=== PATIENT | female | born 1985 | race Caucasian/White ===

== ENCOUNTER 2016-07-02 05:24 | Emergency (ER) | payer OTHER ==
[2016-07-02] MEDS ORDERED: IPRATROPIUM 0.5MG/ALBUTEROL 2.5MG INH SOL UD 3ML (DUONEB)(J7620) As Ordered ONE (05:56)
[2016-07-02] MEDS ORDERED: ALBUTEROL SULFATE 2.5 MG/0.5 ML INH NEB SOLN As Ordered ONE (06:51)
--- NOTE | 2016-07-02 07:49 | EDDOCDS ---
Nurse's Notes [facility] Name: Rosa Maria Vogel Age: 30 yrs Sex: Female : 1985 Arrival Date: 07/02/2016 Time: 05:24 Bed 7 Private MD: Diagnosis: Acute bronchitis;Pneumonia in diseases classified elsewhere Presentation: 07/02 05:35 Presenting complaint: Patient states: throat hurts, chest pains along with coughing, cjh started about two days ago. Aspirin was not taken prior to arrival. Adult Sepsis Screening: The patient does not have new or worsening altered mentation. Patient's respiratory rate is less than 22. Systolic blood pressure is greater than 100. Patient has a qSOFA score of 0- Negative Sepsis Screen. Suicide/Homicide risk assessment- the patient denies having any suicidal and/or homicidal ideations and does not present with any other emotional, behavioral or mental health complaints. Status: Patient is not a pharmaceutical service representative or dependent. Transition of care: patient was not received from another setting of care. 05:35 Acuity: DIMITRY Level 4 [facility] 05:35 Method Of Arrival: Walkin/Carried/Asstd [facility] Triage Assessment: 05:36 General: Appears in no apparent distress, comfortable, Behavior is cooperative. Pain: [facility] Location: head, neck and chest Pain currently is 7 out of 10 on a pain scale. HIV screening NA for this visit Offered previously. Respiratory: Reports cough that is productive. Derm: Skin is pink, warm & dry. 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 none - PMHx: none; - PSHx: tubal ; - Social history: Smoking status: Patient uses tobacco products, light tobacco smoker. No barriers to communication noted. - : The pt / caregiver states he / she is not on anticoagulants. Home medication list is obtained from the patient. - Exposure Risk Screening:: None identified. Screenin:45 Screening information is obtained from the patient. Fall risk: No risks identified. kas2 Assistance ADL's: requires no assistance with activities of daily living. Abuse/DV Screen: The patient / caregiver reports he/she is: not in a situation that causes fear, pain or injury. Nutritional screening: No deficits noted. Advance Directives: Currently, there is no health care proxy. There is no active DNR order. There is no living will. There is no Power of Bung Dropper. home support is adequate. Assessment: 05:43 General: Appears in no apparent distress, uncomfortable, well nourished, well groomed, kas2 Behavior is appropriate for age, cooperative. Pain: Location: chest and neck and head Pain currently is 9 out of 10 on a pain scale. Neurological: Level of Consciousness is awake, alert, Oriented to person, place, time. Cardiovascular: Capillary refill < 3 seconds Heart tones S1 S2 present Rhythm is sinus tachycardia No ectopy. Respiratory: Airway is patent Respiratory effort is even, unlabored, Respiratory pattern is regular, symmetrical, Breath sounds are clear bilaterally. Derm: Skin is intact, Skin is dry, Skin is pink, warm & dry. Skin temperature is warm. 06:50 General: Patient laying in bed waiting for respiratory treatment before discharge. No kas2 apparent distress noted. Call tian within reach.. Vital Signs: 05:32 BP 128 / 95; Pulse 111; Resp 18; Temp 98.1; Pulse Ox 98% ; Weight 86.18 kg; Height 5 [facility] ft. 4 in. (162.56 cm); Pain 7/10; 06:54 BP 132 / 90; Pulse 99; Resp 18; Temp 97.9(O); Pulse Ox 99% on R/A; Pain 5/10; kas2 07:46 BP 132 / 86; Pulse 100; Resp 18; Temp 97.8; Pulse Ox 95% on R/A; jmk 05:32 Body Mass Index 32.61 (86.18 kg, 162.56 cm) [facility] Vitals: 05:32 Log In Time: July 02, 2016 at 05:21. [facility] ED Course: 05:25 Patient visited by Erin Yo. gjb 05:25 Patient moved to Waiting gjb 05:36 Triage Initiated [facility] 05:37 Carissa Barillas RN is Primary Nurse. [facility] 05:37 Patient moved to 7 [facility] 05:40 Patient visited by Carissa Barillas RN. kas2 05:42 Yaa Gallardo MD is Attending Physician. fg 05:42 Patient visited by Yaa Gallardo MD. fg 05:46 Patient visited by aCrissa Barillas RN. kas2 05:53 Patient visited by Miranda, [place], DIRECTOR OF FOOD AND NUTRITION. ls3 05:53 EKG done. (by ED staff). Reviewed by Yaa Gallardo MD. ls3 05:54 Patient visited by Carissa Barillas RN. kas2 06:09 [facility] Payment Agreement was scanned into [employer] and attached to record. hs2 06:37 [facility] is Referral Physician. fg 06:51 Patient visited by Carissa Barillas RN. kas2 06:55 Patient visited by Carissa Barillas RN. kas2 07:19 Primary Nurse role handed off by Carissa Barillas RN mcp 07:46 The patient / caregiver is instructed regarding the plan of care and ED course. k 07:46 No IV's were initiated during this patient's visit. No procedures done that require k assistance. Administered Medications: 06:01 Drug: Albuterol-Ipratropium 3 ml [ipratropium-albuterol 0.5 mg-3 mg(2.5 mg base)/3 mL jh6 nebulization soln (3 mL)] Route: Inhalation; 06:54 Drug: Albuterol 2.5 mg [albuterol sulfate 2.5 mg/0.5 mL solution for nebulization (0.5 sd7 mL)] Route: Nebulizer; 06:58 Follow up: Response: Nebulizer completed sd7 RT: 06:01 Initial Med Neb Given as ordered Patient was instructed and evaluated on procedure jh6 Patient tolerated procedure well without adverse effect. Respiratory: Airway is patent Respiratory effort is even, unlabored, Respiratory pattern is regular symmetrical, Breath sounds are coarse in right upper lobe, left upper lobe, right middle lobe, left lower lobe and right lower lobe Breath sounds are diminished in right upper lobe, left upper lobe, right middle lobe, left lower lobe and right lower lobe. 06:08 Respiratory: Airway is patent Respiratory effort is even, unlabored, Respiratory jh6 pattern is regular symmetrical, Breath sounds with crackles in right upper lobe, left upper lobe, right middle lobe, left lower lobe and right lower lobe Breath sounds are diminished in right upper lobe, left upper lobe, right middle lobe, left lower lobe and right lower lobe Reports cough that is. 06:54 Subsequent Med Neb Given as ordered Patient was reinforced on procedure Patient sd7 tolerated procedure well without adverse effect. Respiratory: Breath sounds are coarse bilaterally. Breath sounds with wheezes bilaterally. at inspiration. Order Results: There are currently no results for this order. Outcome: 06:37 Discharge ordered by Provider. fg 07:46 Discharge Assessment: Patient awake, alert and oriented x 3. No cognitive and/or jmk functional deficits noted. Patient verbalized understanding of disposition instructions. patient administered narcotics - no. The following High Risk Discharge criteria are identified: None. Condition: good. Discharge instructions given to patient, Instructed on discharge instructions, follow up and referral plans. medication usage, Demonstrated understanding of instructions, medications, Pt was receptive of discharge instructions/ teaching. Prescriptions given X 3. No special radiology studies were completed. Property :Personal belongings accompany Pt. 07:48 Patient left the ED. [facility] Signatures: Junaid Ceron,RN RN Scarlet Carrillo RN RN Dung Palmer jh6 Marlen Brush,RN RN Deepali Beltran,RT RT sd7 Yaa Gallardo MD MD fg Schiff, Lauren, DIRECTOR OF FOOD AND NUTRITION DIRECTOR OF FOOD AND NUTRITION ls3 Erin Yo Hillary, Reg Reg hs2 Carissa Barillas,RN RN kas2 MTDD
--- NOTE | 2016-07-02 07:49 | EDDOCDS ---
Physician Documentation [facility] Name: Rosa Maria Vogel Age: 30 yrs Sex: Female : 1985 Arrival Date: 07/02/2016 Time: 05:24 Bed 7 Private MD: Disposition: 07/02/16 06:37 Discharged to Home/Self Care. Impression: Acute bronchitis, Pneumonia in diseases classified elsewhere. - Condition is Stable. - Discharge Instructions: Acute Bronchitis, Pneumonia, Adult, [id number]. - Prescriptions for Zithromax Z- Isaiah 250 mg Oral Tablet - take 1 tablet by ORAL route as directed for 5 days Day 1- take two tablets once. Day 2, 3, 4 , 5 take one tablet once daily.; 6 tablet. Prednisone 20 mg Oral Tablet - take 2 tablet by ORAL route once daily for 5 days; 10 tablet. benzonatate 200 mg Oral Capsule - take 1 capsule by ORAL route 2 times per day As needed; 15 capsule. - Medication Reconciliation, Local Pharmacy Hours form. - Follow up: [facility]; When: Call to arrange an appointment; Reason: Continuance of care. - Problem is new. - Symptoms have worsened. Historical: - Allergies: no known allergies; - Home Meds: 1. none - PMHx: none; - PSHx: tubal ; - Social history: Smoking status: Patient uses tobacco products, light tobacco smoker. No barriers to communication noted. - : The pt / caregiver states he / she is not on anticoagulants. Home medication list is obtained from the patient. - Exposure Risk Screening:: None identified. 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 4 in. (162.56 cm); Pain 7/10; 06:54 BP 132 / 90; Pulse 99; Resp 18; Temp 97.9(O); Pulse Ox 99% on R/A; Pain 5/10; kas2 07:46 BP 132 / 86; Pulse 100; Resp 18; Temp 97.8; Pulse Ox 95% on R/A; k 05:32 Body Mass Index 32.61 (86.18 kg, 162.56 cm) [facility] MDM: 05:42 ECG WITH READING ER PHYS+CARDIAG ordered. EDMS 05:48 Albuterol-Ipratropium 3 ml Inhalation once ordered. fg 05:48 Call Respiratory ordered. fg 05:48 Strep Screen, Nursing ordered. fg 05:49 Call Respiratory complete. kas2 05:50 Chest, 1 View Ordered. EDMS 06:09 Financial registration complete. hs2 06:09 [facility] Payment Agreement was scanned into [employer] and attached to record. hs2 06:36 Albuterol 2.5 mg Nebulizer once ordered. fg Administered Medications: 06:01 Drug: Albuterol-Ipratropium 3 ml [ipratropium-albuterol 0.5 mg-3 mg(2.5 mg base)/3 mL [facility] nebulization soln (3 mL)] Route: Inhalation; 06:54 Drug: Albuterol 2.5 mg [albuterol sulfate 2.5 mg/0.5 mL solution for nebulization (0.5 sd7 mL)] Route: Nebulizer; 06:58 Follow up: Response: Nebulizer completed sd7 Signatures: Dispatcher [employer] EDMS Junaid Ceron,RN RN Marlen Cooley,RN RN [facility] Yaa Gallardo MD MD Christina Dobbins, Reg Reg hs2 Carissa Barillas,RN RN sebas Dung Bedolla jh6 Deepali Isabel RT sd7 The chart was reviewed and I authenticate all verbal orders and agree with the evaluation and treatment provided.Attachments: 06:09 [facility] Payment Agreement hs2 MTDD
--- NOTE | 2016-07-02 08:24 | REP ---
Clinical: Chest pain . Comparison: None . Findings: The mediastinum and cardiac silhouette are stable and within normal limits for portable technique. The lung curtis are clear without acute consolidation, effusion, or pneumothorax. Skeletal structures are intact. Impression: Normal portable chest x-ray Signed by Costa Raman MD 07/02/2016 08:16 A
--- NOTE | 2016-07-02 18:05 | ECGEPIP ---
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
--- NOTE | 2016-07-04 08:49 | EDDOCDS ---
Physician Documentation [facility] Name: Rosa Maria Vogel Age: 30 yrs Sex: Female : 1985 Arrival Date: 07/02/2016 Time: 05:24 Bed 7 Private MD: Disposition: 07/02/16 06:37 Discharged to Home/Self Care. Impression: Acute bronchitis, Pneumonia in diseases classified elsewhere. - Condition is Stable. - Discharge Instructions: Acute Bronchitis, Pneumonia, Adult, [id number]. - Prescriptions for Zithromax Z- Isaiah 250 mg Oral Tablet - take 1 tablet by ORAL route as directed for 5 days Day 1- take two tablets once. Day 2, 3, 4 , 5 take one tablet once daily.; 6 tablet. Prednisone 20 mg Oral Tablet - take 2 tablet by ORAL route once daily for 5 days; 10 tablet. benzonatate 200 mg Oral Capsule - take 1 capsule by ORAL route 2 times per day As needed; 15 capsule. - Medication Reconciliation, Local Pharmacy Hours form. - Follow up: [facility]; When: Call to arrange an appointment; Reason: Continuance of care. - Problem is new. - Symptoms have worsened. Historical: - Allergies: no known allergies; - Home Meds: 1. none - PMHx: none; - PSHx: tubal ; - Social history: Smoking status: Patient uses tobacco products, light tobacco smoker. No barriers to communication noted. - : The pt / caregiver states he / she is not on anticoagulants. Home medication list is obtained from the patient. - Exposure Risk Screening:: None identified. 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 4 in. (162.56 cm); Pain 7/10; 06:54 BP 132 / 90; Pulse 99; Resp 18; Temp 97.9(O); Pulse Ox 99% on R/A; Pain 5/10; kas2 07:46 BP 132 / 86; Pulse 100; Resp 18; Temp 97.8; Pulse Ox 95% on R/A; k 05:32 Body Mass Index 32.61 (86.18 kg, 162.56 cm) [facility] MDM: 05:42 ECG WITH READING ER PHYS+CARDIAG ordered. EDMS 05:48 Albuterol-Ipratropium 3 ml Inhalation once ordered. fg 05:48 Call Respiratory ordered. fg 05:48 Strep Screen, Nursing ordered. fg 05:49 Call Respiratory complete. kas2 05:50 Chest, 1 View Ordered. EDMS 06:09 Financial registration complete. hs2 06:09 [facility] Payment Agreement was scanned into [employer] and attached to record. hs2 06:36 Albuterol 2.5 mg Nebulizer once ordered. fg 13:58 T-Sheet-- Draft Copy was scanned into [employer] and attached to record. gb 13:58 ECG/EKG was scanned into [employer] and attached to record. gb Administered Medications: 06:01 Drug: Albuterol-Ipratropium 3 ml [ipratropium-albuterol 0.5 mg-3 mg(2.5 mg base)/3 mL [facility] nebulization soln (3 mL)] Route: Inhalation; 06:54 Drug: Albuterol 2.5 mg [albuterol sulfate 2.5 mg/0.5 mL solution for nebulization (0.5 sd7 mL)] Route: Nebulizer; 06:58 Follow up: Response: Nebulizer completed sd7 Signatures: Dispatcher [employer] EDMS Junaid Ceron,RN RN Maricarmen Jacobsen, Reg Reg gb Marlen Brush,RN RN [facility] Yaa Gallardo MD MD Christina Dobbins, Reg Reg hs2 Carissa Barillas RN RN [facility] Dung eBdolla jh Deepali Isabel RT sd7 The chart was reviewed and I authenticate all verbal orders and agree with the evaluation and treatment provided.Attachments: 06:09 [facility] Payment Agreement hs2 13:58 T-Sheet-- Draft Copy gb 13:58 ECG/EKG gb Chart Complete MTDD
--- NOTE | 2016-07-04 08:49 | EDDOCDS ---
Physician Documentation Name: Rosa Maria Vogel Age: 30 yrs Sex: Female : 1985 Arrival Date: 07/02/2016 Time: 05:24 Bed 7 Private MD: Disposition: 07/02/16 06:37 Discharged to Home/Self Care. Impression: Acute bronchitis, Pneumonia in diseases classified elsewhere. - Condition is Stable. - Discharge Instructions: Acute Bronchitis, Pneumonia, Adult, [id number]. - Prescriptions for Zithromax Z- Isaiah 250 mg Oral Tablet - take 1 tablet by ORAL route as directed for 5 days Day 1- take two tablets once. Day 2, 3, 4 , 5 take one tablet once daily.; 6 tablet. Prednisone 20 mg Oral Tablet - take 2 tablet by ORAL route once daily for 5 days; 10 tablet. benzonatate 200 mg Oral Capsule - take 1 capsule by ORAL route 2 times per day As needed; 15 capsule. - Medication Reconciliation, Local Pharmacy Hours form. - Follow up: [facility]; When: Call to arrange an appointment; Reason: Continuance of care. - Problem is new. - Symptoms have worsened. Historical: - Allergies: no known allergies; - Home Meds: 1. none - PMHx: none; - PSHx: tubal ; - Social history: Smoking status: Patient uses tobacco products, light tobacco smoker. No barriers to communication noted. - : The pt / caregiver states he / she is not on anticoagulants. Home medication list is obtained from the patient. - Exposure Risk Screening:: None identified. 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 4 in. (162.56 cm); Pain 7/10; 06:54 BP 132 / 90; Pulse 99; Resp 18; Temp 97.9(O); Pulse Ox 99% on R/A; Pain 5/10; kas2 07:46 BP 132 / 86; Pulse 100; Resp 18; Temp 97.8; Pulse Ox 95% on R/A; k 05:32 Body Mass Index 32.61 (86.18 kg, 162.56 cm) [facility] MDM: 05:42 ECG WITH READING ER PHYS+CARDIAG ordered. EDMS 05:48 Albuterol-Ipratropium 3 ml Inhalation once ordered. fg 05:48 Call Respiratory ordered. fg 05:48 Strep Screen, Nursing ordered. fg 05:49 Call Respiratory complete. kas2 05:50 Chest, 1 View Ordered. EDMS 06:09 Financial registration complete. hs2 06:09 [facility] Payment Agreement was scanned into [employer] and attached to record. hs2 06:36 Albuterol 2.5 mg Nebulizer once ordered. fg 13:58 T-Sheet-- Draft Copy was scanned into [employer] and attached to record. gb 13:58 ECG/EKG was scanned into [employer] and attached to record. gb Administered Medications: 06:01 Drug: Albuterol-Ipratropium 3 ml [ipratropium-albuterol 0.5 mg-3 mg(2.5 mg base)/3 mL [facility] nebulization soln (3 mL)] Route: Inhalation; 06:54 Drug: Albuterol 2.5 mg [albuterol sulfate 2.5 mg/0.5 mL solution for nebulization (0.5 sd7 mL)] Route: Nebulizer; 06:58 Follow up: Response: Nebulizer completed sd7 Signatures: Dispatcher [employer] EDMS Junaid Ceron,RN RN Maricarmen Jacobsen, Reg Reg gb Marlen Brush,RN RN [facility] Yaa Gallardo MD MD Christina Dobbins, Reg Reg hs2 Carissa Barillas RN RN [facility] Dung Bedolla jh Deepali Isabel RT sd7 The chart was reviewed and I authenticate all verbal orders and agree with the evaluation and treatment provided.Attachments: 06:09 [facility] Payment Agreement hs2 13:58 T-Sheet-- Draft Copy gb 13:58 ECG/EKG gb Chart Complete MTDD
--- NOTE | 2016-07-04 08:49 | EDDOCDS ---
Nurse's Notes [facility] Name: Rosa Maria Vogel Age: 30 yrs Sex: Female : 1985 Arrival Date: 07/02/2016 Time: 05:24 Bed 7 Private MD: Diagnosis: Acute bronchitis;Pneumonia in diseases classified elsewhere Presentation: 07/02 05:35 Presenting complaint: Patient states: throat hurts, chest pains along with coughing, cjh started about two days ago. Aspirin was not taken prior to arrival. Adult Sepsis Screening: The patient does not have new or worsening altered mentation. Patient's respiratory rate is less than 22. Systolic blood pressure is greater than 100. Patient has a qSOFA score of 0- Negative Sepsis Screen. Suicide/Homicide risk assessment- the patient denies having any suicidal and/or homicidal ideations and does not present with any other emotional, behavioral or mental health complaints. Status: Patient is not a reactor service operator or dependent. Transition of care: patient was not received from another setting of care. 05:35 Acuity: DIMITRY Level 4 [facility] 05:35 Method Of Arrival: Walkin/Carried/Asstd [facility] Triage Assessment: 05:36 General: Appears in no apparent distress, comfortable, Behavior is cooperative. Pain: [facility] Location: head, neck and chest Pain currently is 7 out of 10 on a pain scale. HIV screening NA for this visit Offered previously. Respiratory: Reports cough that is productive. Derm: Skin is pink, warm & dry. 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 none - PMHx: none; - PSHx: tubal ; - Social history: Smoking status: Patient uses tobacco products, light tobacco smoker. No barriers to communication noted. - : The pt / caregiver states he / she is not on anticoagulants. Home medication list is obtained from the patient. - Exposure Risk Screening:: None identified. Screenin:45 Screening information is obtained from the patient. Fall risk: No risks identified. kas2 Assistance ADL's: requires no assistance with activities of daily living. Abuse/DV Screen: The patient / caregiver reports he/she is: not in a situation that causes fear, pain or injury. Nutritional screening: No deficits noted. Advance Directives: Currently, there is no health care proxy. There is no active DNR order. There is no living will. There is no Power of Vp Corporate Development. home support is adequate. Assessment: 05:43 General: Appears in no apparent distress, uncomfortable, well nourished, well groomed, kas2 Behavior is appropriate for age, cooperative. Pain: Location: chest and neck and head Pain currently is 9 out of 10 on a pain scale. Neurological: Level of Consciousness is awake, alert, Oriented to person, place, time. Cardiovascular: Capillary refill < 3 seconds Heart tones S1 S2 present Rhythm is sinus tachycardia No ectopy. Respiratory: Airway is patent Respiratory effort is even, unlabored, Respiratory pattern is regular, symmetrical, Breath sounds are clear bilaterally. Derm: Skin is intact, Skin is dry, Skin is pink, warm & dry. Skin temperature is warm. 06:50 General: Patient laying in bed waiting for respiratory treatment before discharge. No kas2 apparent distress noted. Call tian within reach.. Vital Signs: 05:32 BP 128 / 95; Pulse 111; Resp 18; Temp 98.1; Pulse Ox 98% ; Weight 86.18 kg; Height 5 [facility] ft. 4 in. (162.56 cm); Pain 7/10; 06:54 BP 132 / 90; Pulse 99; Resp 18; Temp 97.9(O); Pulse Ox 99% on R/A; Pain 5/10; kas2 07:46 BP 132 / 86; Pulse 100; Resp 18; Temp 97.8; Pulse Ox 95% on R/A; jmk 05:32 Body Mass Index 32.61 (86.18 kg, 162.56 cm) [facility] Vitals: 05:32 Log In Time: July 02, 2016 at 05:21. [facility] ED Course: 05:25 Patient visited by Erin Yo. gjb 05:25 Patient moved to Waiting gjb 05:36 Triage Initiated [facility] 05:37 Carissa Barillas RN is Primary Nurse. [facility] 05:37 Patient moved to 7 [facility] 05:40 Patient visited by Carissa Barillas RN. kas2 05:42 Yaa Gallardo MD is Attending Physician. fg 05:42 Patient visited by Yaa Gallardo MD. fg 05:46 Patient visited by Carissa Barillas RN. kas2 05:53 Patient visited by Miranda, [place], RIVERBOAT MASTER. ls3 05:53 EKG done. (by ED staff). Reviewed by Yaa Gallardo MD. ls3 05:54 Patient visited by Carissa Barillas RN. kas2 06:09 [facility] Payment Agreement was scanned into [employer] and attached to record. hs2 06:37 [facility] is Referral Physician. fg 06:51 Patient visited by Carissa Barillas RN. kas2 06:55 Patient visited by Carissa Barillas RN. kas2 07:19 Primary Nurse role handed off by Carissa Barillas RN mcp 07:46 The patient / caregiver is instructed regarding the plan of care and ED course. jmk 07:46 No IV's were initiated during this patient's visit. No procedures done that require k assistance. 08:50 Chest, 1 View Returned. EDMS 13:58 T-Sheet-- Draft Copy was scanned into [employer] and attached to record. gb 13:58 ECG/EKG was scanned into [employer] and attached to record. gb 18:09 EKG-ADULT Returned. EDMS Administered Medications: 06:01 Drug: Albuterol-Ipratropium 3 ml [ipratropium-albuterol 0.5 mg-3 mg(2.5 mg base)/3 mL jh6 nebulization soln (3 mL)] Route: Inhalation; 06:54 Drug: Albuterol 2.5 mg [albuterol sulfate 2.5 mg/0.5 mL solution for nebulization (0.5 sd7 mL)] Route: Nebulizer; 06:58 Follow up: Response: Nebulizer completed sd7 RT: 06:01 Initial Med Neb Given as ordered Patient was instructed and evaluated on procedure jh6 Patient tolerated procedure well without adverse effect. Respiratory: Airway is patent Respiratory effort is even, unlabored, Respiratory pattern is regular symmetrical, Breath sounds are coarse in right upper lobe, left upper lobe, right middle lobe, left lower lobe and right lower lobe Breath sounds are diminished in right upper lobe, left upper lobe, right middle lobe, left lower lobe and right lower lobe. 06:08 Respiratory: Airway is patent Respiratory effort is even, unlabored, Respiratory jh6 pattern is regular symmetrical, Breath sounds with crackles in right upper lobe, left upper lobe, right middle lobe, left lower lobe and right lower lobe Breath sounds are diminished in right upper lobe, left upper lobe, right middle lobe, left lower lobe and right lower lobe Reports cough that is. 06:54 Subsequent Med Neb Given as ordered Patient was reinforced on procedure Patient sd7 tolerated procedure well without adverse effect. Respiratory: Breath sounds are coarse bilaterally. Breath sounds with wheezes bilaterally. at inspiration. 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:; : 1985 Requested By: YAA Nieves; Order Number: [id number] Reading MD: Veronika Scott; Measurements; Intervals [place]; Rate: 102 P: 27; MD: 114 QRS: 54; QRSD: 76 T: 16; QT: 313; QTc: 409; Interpretive Statements; SINUS TACHYCARDIA WITH SHORT MD INTERVAL; ABNORMAL RHYTHM ECG; NO PRIOR FOR COMPARISON; Electronically Signed On 07-02-2016 18:05:26 EST by Veronika Scott; Radiology Order: Chest, 1 View Test: Chest, 1 View REASON FOR EXAMINATION: Chest Pain; Clinical: Chest pain .; ; Comparison: None .; ; Findings:; The mediastinum and cardiac silhouette are stable and within normal limits for; portable technique. The lung curtis are clear without acute consolidation,; effusion, or pneumothorax. Skeletal structures are intact.; ; Impression:; Normal portable chest x-ray; ; ; Signed by; Costa Raman MD 07/02/2016 08:16 A; Outcome: 06:37 Discharge ordered by Provider. fg 07:46 Discharge Assessment: Patient awake, alert and oriented x 3. No cognitive and/or jmk functional deficits noted. Patient verbalized understanding of disposition instructions. patient administered narcotics - no. The following High Risk Discharge criteria are identified: None. Condition: good. Discharge instructions given to patient, Instructed on discharge instructions, follow up and referral plans. medication usage, Demonstrated understanding of instructions, medications, Pt was receptive of discharge instructions/ teaching. Prescriptions given X 3. No special radiology studies were completed. Property :Personal belongings accompany Pt. 07:48 Patient left the ED. k Signatures: Dispatcher [employer] EDMS Junaid Ceron,RN RN christina Tobin, Scarlet, RN RN [facility] Maricarmen Esposito, Reg Reg gb Dung Bedolla jh6 Marlen Brush,RN RN [facility] Chalo,Deepali,RT RT sd7 Yaa Gallardo MD MD fg Schiff, Lauren, RIVERBOAT MASTER RIVERBOAT MASTER ls3 Erin Yo gjb Christina Dobbins, Reg Reg hs2 Carissa Barillas,RN RN kas2 Chart Complete MTDD
== END 2016-07-02 07:48 | disposition home or self-care (01) ==
LOC: M ED 05:24
DX: R07.9 Chest pain, unspecified (principal); R05 Cough; R20.9 Unspecified disturbances of skin sensation; J18.9 Pneumonia, unspecified organism; Z72.0 Tobacco use

== ENCOUNTER 2016-10-26 16:13 | Emergency (ER) | payer OTHER ==
[~2016-10-26] VITALS: Ht 162.6 cm; Wt 88.9 kg
[2016-10-26] MEDS ORDERED: ONDANSETRON 4 MG ORAL DISINTEGRATING TAB (S0181) PO ONE (17:00)
[2016-10-26] MEDS ORDERED: ZOFR4TAB3 PO (17:28)
[2016-10-26 18:03] VITALS: BP 116/74
== END 2016-10-26 18:08 | disposition home or self-care (01) ==
LOC: M ED 17:01
DX: R11.2 Nausea with vomiting, unspecified (principal)

== ENCOUNTER 2016-11-23 17:41 | Emergency (ER) | payer OTHER ==
[~2016-11-23] VITALS: Ht 162.6 cm; Wt 99.8 kg
[~2016-11-23 17:41] MED LIST: ZOFR4TAB3 PO
[2016-11-23] MEDS ORDERED: NYSTATIN 100,000 UNITS/GM TOPICAL PWD 15 GM TOP ONE (19:30)
[2016-11-23] MEDS ORDERED: ONDANSETRON 4 MG ORAL DISINTEGRATING TAB (S0181) PO ONE (19:30)
[2016-11-23] MEDS ORDERED: MORPHINE 10 MG/ML 1ML VIAL IM ONE (19:30)
[2016-11-23 19:49] LABS: BASO % 0.4 % (0.0-1.0); EOS # 0.4 K/mm3 (0.0-0.50); LARGE UNSTAINED CELL # 0.1 K/mm3 (0.0-0.4); LARGE UNSTAINED CELL % 1.2 % (0.0-4.0); LYMPH # 2.4 K/mm3 (1.5-6.5); MEAN CORPUSCULAR HEMOGLOBIN 28.3 pg (27.0-33.0); MEAN CORPUSCULAR HGB CONC 33.1 g/dl (32.0-36.5); MEAN CORPUSCULAR VOLUME 85.3 fl (80.0-96.0); MONO # 0.3 K/mm3 (0.0-0.8); NEUTROPHILS # 7.2 K/mm3 (1.8-7.7); NEUTROPHILS % 69.4 % (36.0-66.0); PLATELET COUNT, AUTOMATED 254 k/mm3 (150-450); RED CELL DISTRIBUTION WIDTH 14.1 % (11.5-14.5); WHITE BLOOD COUNT 10.4 K/mm3 (4.0-10.0)
[2016-11-23 20:13] LABS: ANION GAP 4 MEQ/L (8-16); BLOOD UREA NITROGEN 9 MG/DL (7-18); CARBON DIOXIDE LEVEL 27 MEQ/L (21-32); CHLORIDE LEVEL 109 MEQ/L (98-107); GLOMERULAR FILTRATION RATE > 60.0 (>60); GLUCOSE, FASTING 85 MG/DL (70-105); SODIUM LEVEL 140 MEQ/L (136-145)
[2016-11-23 20:22] VITALS: BP 122/58
--- NOTE | 2016-11-23 20:50 | REPUSA ---
Clinical history: Breast redness, swelling. Findings: Real-time ultrasound imaging of the right breast was performed.. There is an open draining wound at the two to three o'clock position of the right breast. Adjacent to the site, posterior to t he nipple, is a complex fluid collection measuring 2.3 x 1.7 x 1.4 cm. Diffuse edema is noted. No oth er gross abnormalities. Impression: Complex Fluid collection in the upper inner right breast, consistent with an abscess. BIRAD 2: benign findings.
[2016-11-23] MEDS ORDERED: CLEO300C2 PO (21:13)
[2016-11-23] MEDS ORDERED: PERC5TAB6 PO (21:13)
[2016-11-23] MEDS ORDERED: PERCOCET 5MG/325MG TAB PO ONE (21:15)
[2016-11-23] MEDS ORDERED: CLINDAMYCIN 150 MG CAP PO ONE (21:15)
== END 2016-11-23 21:32 | disposition home or self-care (01) ==
LOC: M ED 18:29
DX: N61.1 Abscess of the breast and nipple (principal); B37.2 Candidiasis of skin and nail

== ENCOUNTER 2017-01-31 20:18 | Emergency (ER) | payer OTHER ==
[~2017-01-31] VITALS: Ht 162.6 cm; Wt 96.0 kg
[~2017-01-31 20:18] MED LIST changes: +CLEO300C2 PO; +PERC5TAB12 PO
[2017-01-31] MEDS ORDERED: ZOLO50TA PO (20:32)
[2017-01-31] MEDS ORDERED: ONDANSETRON 4MG/2ML VIAL (J2405) IV ONE (21:00)
[2017-01-31] MEDS ORDERED: MORPHINE 4 MG/ML 1ML SYRINGE IV ONE (21:00)
[2017-01-31 21:13] LABS: CONTROL LINE UCG INT CTR LINE PRESENT
[2017-01-31 21:50] LABS: BASO # 0.1 K/mm3 (0.0-0.2); BASO % 0.8 % (0.0-1.0); EOS # 0.4 K/mm3 (0.0-0.50); EOS % 3.8 % (0.0-3.0); LARGE UNSTAINED CELL # 0.2 K/mm3 (0.0-0.4); LARGE UNSTAINED CELL % 1.5 % (0.0-4.0); LYMPH # 2.5 K/mm3 (1.5-6.5); MEAN CORPUSCULAR HEMOGLOBIN 28.9 pg (27.0-33.0); MEAN CORPUSCULAR HGB CONC 34.1 g/dl (32.0-36.5); MEAN CORPUSCULAR VOLUME 84.8 fl (80.0-96.0); MONO # 0.4 K/mm3 (0.0-0.8); MONO % 3.6 % (0.0-5.0); NEUTROPHILS # 8.2 K/mm3 (1.8-7.7); NEUTROPHILS % 69.4 % (36.0-66.0); PLATELET COUNT, AUTOMATED 293 k/mm3 (150-450); RED CELL DISTRIBUTION WIDTH 12.8 % (11.5-14.5); WHITE BLOOD COUNT 11.9 K/mm3 (4.0-10.0)
[2017-01-31 22:17] LABS: BLOOD UREA NITROGEN 7 MG/DL (7-18); GLUCOSE, FASTING 114 MG/DL (70-105)
[2017-01-31 22:18] LABS: ALBUMIN 3.3 GM/DL (3.2-5.2); ALBUMIN/GLOBULIN RATIO 0.87 (1.00-1.93); ALKALINE PHOSPHATASE 90 U/L (45-117); ALT/SGPT 17 U/L (12-78); ANION GAP 9 MEQ/L (8-16); AST/SGOT 13 U/L (15-37); BILIRUBIN,DIRECT < 0.1 MG/DL (0.0-0.2); BILIRUBIN,TOTAL 0.1 MG/DL (0.2-1.0); CALCIUM LEVEL 8.7 MG/DL (8.5-10.1); CARBON DIOXIDE LEVEL 24 MEQ/L (21-32); CHLORIDE LEVEL 108 MEQ/L (98-107); CONTROL LINE HCG INT CTR LINE PRESENT; CREATININE FOR GFR 0.62 MG/DL (0.55-1.02); GLOMERULAR FILTRATION RATE > 60.0 (>60); POTASSIUM SERUM 3.9 MEQ/L (3.5-5.1); SODIUM LEVEL 141 MEQ/L (136-145); TOTAL PROTEIN 7.1 GM/DL (6.4-8.2)
[2017-01-31] MEDS ORDERED: ISOVUE-370 76% 100ML VIAL (Q9967) As Ordered ONE (22:21)
[2017-01-31] MEDS ORDERED: MORPHINE 2 MG/ML 1ML SYRINGE IV ONE (23:15)
--- NOTE | 2017-01-31 23:20 | REPUSA ---
CLINICAL HISTORY: Right lower quadrant pain. TECHNIQUE: CT abdomen and pelvis following administration of IV contrast. Total DLP 981.9 mGy*cm. COMPARISON: No pertinent prior studies are available at this time. CT ABDOMEN WITH CONTRAST: Lung bases: No lung base infiltrate or effusion. 4 mm bilateral lower lobe nodules likely due to atel ectasis. Liver: No intrahepatic ductal dilation. Gallbladder: Contracted. Pancreas: No pancreatic duct dilation. Bowel loops: Nondistended. Spleen: Normal size. Adrenals: Normal size. Kidneys: No hydronephrosis. Aorta: Normal caliber. Peritoneum: No free air. CT PELVIS WITH CONTRAST: Colon: Nondistended. Bladder: Normally distended. Pelvic organs: Unremarkable. Peritoneum: No fluid. Skeleton: No acute findings. IMPRESSION: No acute abdominal findings.
[2017-01-31 23:54] VITALS: BP 122/68
--- NOTE | 2017-02-01 07:31 | ECGEPIP ---
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
== END 2017-02-01 00:04 | disposition home or self-care (01) ==
LOC: M ED 20:18
DX: R10.9 Unspecified abdominal pain (principal); Z72.0 Tobacco use
CPT/HCPCS: 36415; 74177; 80048; 80076; 81001; 83690; 84703; 85025; 87210; 87491; 87591; 93000; 96374; 96375; 96376; 99284; J2405; Q9967

== ENCOUNTER 2017-03-10 21:22 | Emergency (ER) | payer OTHER ==
[~2017-03-10] VITALS: Ht 134.6 cm; Wt 95.5 kg
[~2017-03-10 21:22] MED LIST changes: +ZOLO50TA PO
[2017-03-10] MEDS ORDERED: KETOROLAC 60 MG/2 ML VIAL (J1885) IM ONE (23:00)
[2017-03-10] MEDS ORDERED: NS 1,000 ML IV ONE (23:00)
[2017-03-10] MEDS ORDERED: KETOROLAC 30 MG/ML VIAL (J1885) IV ONE (23:00)
[2017-03-10 23:23] LABS: BASO % 0.3 % (0.0-1.0); EOS # 0.2 K/mm3 (0.0-0.50); EOS % 2.6 % (0.0-3.0); LARGE UNSTAINED CELL # 0.2 K/mm3 (0.0-0.4); LARGE UNSTAINED CELL % 1.6 % (0.0-4.0); LYMPH # 2.2 K/mm3 (1.5-6.5); LYMPH % 24.6 % (24.0-44.0); MEAN CORPUSCULAR HEMOGLOBIN 29.2 pg (27.0-33.0); MEAN CORPUSCULAR HGB CONC 34.2 g/dl (32.0-36.5); MEAN CORPUSCULAR VOLUME 85.3 fl (80.0-96.0); MONO # 0.3 K/mm3 (0.0-0.8); MONO % 3.5 % (0.0-5.0); NEUTROPHILS % 67.4 % (36.0-66.0); PLATELET COUNT, AUTOMATED 294 k/mm3 (150-450); RED CELL DISTRIBUTION WIDTH 13.3 % (11.5-14.5)
[2017-03-10 23:25] LABS: ANION GAP 8 MEQ/L (8-16); BLOOD UREA NITROGEN 13 MG/DL (7-18); CALCIUM LEVEL 8.6 MG/DL (8.5-10.1); CARBON DIOXIDE LEVEL 24 MEQ/L (21-32); CHLORIDE LEVEL 108 MEQ/L (98-107); CREATININE FOR GFR 0.66 MG/DL (0.55-1.02); GLOMERULAR FILTRATION RATE > 60.0 (>60); GLUCOSE, FASTING 122 MG/DL (70-105); POTASSIUM SERUM 3.7 MEQ/L (3.5-5.1); SODIUM LEVEL 140 MEQ/L (136-145)
[2017-03-10 23:42] LABS: CONTROL LINE HCG INT CTR LINE PRESENT
[2017-03-11 00:18] VITALS: BP 127/89
--- NOTE | 2017-03-11 08:07 | REP ---
Lumbar spine three views: There are no comparisons. Vertebral body heights, interspacing alignment are normal. The pedicles, facets and sacroiliac articulations are unremarkable. There is no spondylolysis or spondylolisthesis. Impression: Negative lumbar spine. Signed by Scooby Macias MD 03/11/2017 07:58 A
== END 2017-03-11 00:25 | disposition home or self-care (01) ==
LOC: M ED 21:22 → EDBD 21:22 → M ED 03-11 00:25
DX: I95.1 Orthostatic hypotension (principal); S20.229A Contusion of unspecified back wall of thorax, initial encounter; W19.XXXA Unspecified fall, initial encounter; Y92.099 Unspecified place in other non-institutional residence as the place of occurrence of the external cause; Y93.89 Activity, other specified; Y99.9 Unspecified external cause status
CPT/HCPCS: 72100; 80048; 84703; 85025; 96372; 96374; 99283; J1885

== ENCOUNTER 2017-07-09 12:40 | Inpatient (IN) | payer OTHER ==
[2017-07-09] MEDS: NICOTINE 21MG/24HR 1 EA TRANSDERMAL TD (13:00)
[2017-07-09] MEDS: cloNIDine 0.1 MG TAB PO (13:30)
[2017-07-09 14:05] LABS: HEMATOCRIT 37.2 % (36.0-47.0); HEMOGLOBIN 12.2 g/dl (12.0-16.0); MEAN CORPUSCULAR HEMOGLOBIN 27.3 pg (27.0-33.0); MEAN CORPUSCULAR HGB CONC 32.8 g/dl (32.0-36.5); MEAN CORPUSCULAR VOLUME 83.2 fl (80.0-96.0); PLATELET COUNT, AUTOMATED 307 10^3/uL (150-450); RED BLOOD COUNT 4.47 10^6/uL (4.00-5.40); RED CELL DISTRIBUTION WIDTH 13.1 % (11.5-14.5); WHITE BLOOD COUNT 6.8 10^3/uL (4.0-10.0)
[2017-07-09 14:30] LABS: CONTROL LINE HCG INT CTR LINE PRESENT; HCG, SERUM QUALITATIVE POSITIVE (NEGATIVE)
[2017-07-09 14:42] LABS: ALBUMIN 3.6 GM/DL (3.2-5.2); ALBUMIN/GLOBULIN RATIO 0.84 (1.00-1.93); ALKALINE PHOSPHATASE 96 U/L (45-117); ALT/SGPT 18 U/L (12-78); ANION GAP 8 MEQ/L (8-16); AST/SGOT 14 U/L (7-37); BILIRUBIN,DIRECT < 0.1 MG/DL (0.0-0.2); BILIRUBIN,TOTAL 0.3 MG/DL (0.2-1.0); BLOOD UREA NITROGEN 8 MG/DL (7-18); CALCIUM LEVEL 8.7 MG/DL (8.5-10.1); CARBON DIOXIDE LEVEL 25 MEQ/L (21-32); CHLORIDE LEVEL 105 MEQ/L (98-107); CREATININE FOR GFR 0.56 MG/DL (0.55-1.02); ETHYL ALCOHOL (ETHANOL) 0.005 % (0.000-0.010); GLOMERULAR FILTRATION RATE > 60.0 (>60); GLUCOSE, FASTING 101 MG/DL (70-105); POTASSIUM SERUM 4.1 MEQ/L (3.5-5.1); SALICYLATE LEVEL 2.9 MG/DL (5.0-30.0); SODIUM LEVEL 138 MEQ/L (136-145); TOTAL PROTEIN 7.9 GM/DL (6.4-8.2)
[2017-07-09 14:52] LABS: AMPHETAMINES LEVEL URINE NEGATIVE (NEGATIVE); BARBITURATES URINE NEGATIVE (NEGATIVE); BENZODIAZEPINES URINE NEGATIVE (NEGATIVE); CANNABINOIDS URINE NEGATIVE (NEGATIVE); COCAINE METABOLITE URINE NEGATIVE (NEGATIVE); METHADONE URINE NEGATIVE (NEGATIVE); OPIATES URINE NEGATIVE (NEGATIVE); PHENCYCLIDINE URINE NEGATIVE (NEGATIVE)
[2017-07-09 14:53] LABS: ACETAMINOPHEN LEVEL < 2.0 UG/ML (10.0-30.0)
[2017-07-09 15:32] LABS: HCG, SERUM QUANTITATIVE < 1.0 MIU/ML
[2017-07-09] MEDS ORDERED: MOM 30ML SUSPENSION UDC PO (16:30)
[2017-07-09] MEDS ORDERED: MAALOX 30 ML SUSP *UDC PO (16:30)
[2017-07-09] MEDS: traZODone 50 MG TAB PO (21:48)
[2017-07-09] MEDS: ACETAMINOPHEN TAB 650MG DOSE (2X325MG) PO (21:50)
[2017-07-10] MEDS: LIDOCAINE 5% (LIDODERM) PATCH TD (10:23)
[2017-07-10] MEDS: CHLORHEXIDINE ORAL RINSE 0.12%/15ML 120ML BOTTLE SSP ×2 (15:45→20:16)
[2017-07-10] MEDS: ESCITALOPRAM OXALATE 10 MG TAB (LEXAPRO) PO (15:45)
[2017-07-10] MEDS: hydrOXYzine 50 MG TAB PO ×2 (15:45→20:15)
[2017-07-10] MEDS: **NOTE PATIENT COMMENT** MISC XX (20:16)
[2017-07-10] MEDS: traZODone 50 MG TAB PO (21:39)
[2017-07-11] MEDS: hydrOXYzine 50 MG TAB PO ×3 (08:26→20:17)
[2017-07-11] MEDS: CHLORHEXIDINE ORAL RINSE 0.12%/15ML 120ML BOTTLE SSP ×3 (08:26→20:17)
[2017-07-11] MEDS: ESCITALOPRAM OXALATE 10 MG TAB (LEXAPRO) PO (08:26)
[2017-07-11] MEDS: LIDOCAINE 5% (LIDODERM) PATCH TD (08:26)
[2017-07-11] MEDS: **NOTE PATIENT COMMENT** MISC XX (20:18)
[2017-07-11] MEDS: traZODone 50 MG TAB PO (22:28)
[2017-07-12] MEDS: LIDOCAINE 5% (LIDODERM) PATCH TD (08:19)
[2017-07-12] MEDS: hydrOXYzine 50 MG TAB PO ×3 (08:19→20:53)
[2017-07-12] MEDS: ESCITALOPRAM OXALATE 10 MG TAB (LEXAPRO) PO (08:19)
[2017-07-12] MEDS: CHLORHEXIDINE ORAL RINSE 0.12%/15ML 120ML BOTTLE SSP ×3 (08:20→20:54)
[2017-07-12] MEDS: ACETAMINOPHEN TAB 650MG DOSE (2X325MG) PO (12:27)
[2017-07-12] MEDS: **NOTE PATIENT COMMENT** MISC XX (20:52)
[2017-07-12] MEDS: traZODone 50 MG TAB PO (22:20)
[2017-07-13] MEDS: ESCITALOPRAM OXALATE 10 MG TAB (LEXAPRO) PO (08:05)
[2017-07-13] MEDS: hydrOXYzine 50 MG TAB PO (08:05)
[2017-07-13] MEDS: CHLORHEXIDINE ORAL RINSE 0.12%/15ML 120ML BOTTLE SSP ×3 (08:07→21:24)
[2017-07-13] MEDS: LIDOCAINE 5% (LIDODERM) PATCH TD (09:00)
[2017-07-13 16:42] LABS: CONTROL LINE UCG INT CTR LINE PRESENT; URINE PREG TEST NEGATIVE (NEGATIVE)
[2017-07-13] MEDS: **NOTE PATIENT COMMENT** MISC XX (21:00)
[2017-07-14] MEDS: LIDOCAINE 5% (LIDODERM) PATCH TD (08:15)
[2017-07-14] MEDS: CHLORHEXIDINE ORAL RINSE 0.12%/15ML 120ML BOTTLE SSP (08:16)
[2017-07-14] MEDS ORDERED: traZODone 50 MG TAB PO (10:30)
[2017-07-14] MEDS: hydrOXYzine 50 MG TAB PO (10:50)
[2017-07-14] MEDS: ESCITALOPRAM OXALATE 10 MG TAB (LEXAPRO) PO (12:42)
[2017-07-15] MEDS ORDERED: ESCITALOPRAM OXALATE 10 MG TAB (LEXAPRO) PO (09:00)
== END 2017-07-14 13:45 | disposition home or self-care (01) | DRG 751 ==
LOC: M PSY 07-10 19:56 → M ED 12:40 → M ED INP 16:20 → M PSY 18:06
PROVIDERS: Psychiatry & Neurology Psychiatry
DX: F33.9 Major depressive disorder, recurrent, unspecified (principal); F41.1 Generalized anxiety disorder; Z62.810 Personal history of physical and sexual abuse in childhood; M54.5 Low back pain; F17.210 Nicotine dependence, cigarettes, uncomplicated; Z79.899 Other long term (current) drug therapy

== ENCOUNTER 2017-08-23 21:54 | Emergency (ER) | payer OTHER ==
[2017-08-23] MEDS: ONDANSETRON 4MG/2ML VIAL (J2405) IV (22:40)
[2017-08-23] MEDS: NS 1,000 ML IV (22:41)
[2017-08-23] MEDS: PANTOPRAZOLE 40MG INJ (PROTONIX) (C9113) IV (22:41)
[2017-08-23 22:44] LABS: BASO % 0.3 % (0.0-1.0); EOS # 0.3 10^3/uL (0.0-0.50); EOS % 2.5 % (0.0-3.0); HEMATOCRIT 35.9 % (36.0-47.0); HEMOGLOBIN 11.6 g/dl (12.0-16.0); IMMATURE GRANULOCYTE % 0.3 % (0-3.0); LYMPH # 2.5 10^3/uL (1.5-6.5); MEAN CORPUSCULAR HEMOGLOBIN 27.3 pg (27.0-33.0); MEAN CORPUSCULAR HGB CONC 32.3 g/dl (32.0-36.5); MEAN CORPUSCULAR VOLUME 84.5 fl (80.0-96.0); MONO # 0.6 10^3/uL (0.0-0.8); MONO % 5.6 % (0.0-5.0); NEUTROPHILS # 6.5 10^3/uL (1.8-7.7); NEUTROPHILS % 66.3 % (36.0-66.0); PLATELET COUNT, AUTOMATED 309 10^3/uL (150-450); RED BLOOD COUNT 4.25 10^6/uL (4.00-5.40); RED CELL DISTRIBUTION WIDTH 13.8 % (11.5-14.5); WHITE BLOOD COUNT 9.8 10^3/uL (4.0-10.0)
[2017-08-23 23:07] LABS: ALBUMIN 3.6 GM/DL (3.2-5.2); ALBUMIN/GLOBULIN RATIO 0.82 (1.00-1.93); ALKALINE PHOSPHATASE 97 U/L (45-117); ALT/SGPT 15 U/L (12-78); ANION GAP 6 MEQ/L (8-16); AST/SGOT 21 U/L (7-37); BILIRUBIN,DIRECT < 0.1 MG/DL (0.0-0.2); BILIRUBIN,TOTAL 0.2 MG/DL (0.2-1.0); BLOOD UREA NITROGEN 11 MG/DL (7-18); CALCIUM LEVEL 8.8 MG/DL (8.5-10.1); CARBON DIOXIDE LEVEL 26 MEQ/L (21-32); CHLORIDE LEVEL 107 MEQ/L (98-107); CREATININE FOR GFR 0.59 MG/DL (0.55-1.30); GLOMERULAR FILTRATION RATE > 60.0 (>60); GLUCOSE, FASTING 118 MG/DL (70-100); LIPASE 203 U/L (73-393); POTASSIUM SERUM 4.5 MEQ/L (3.5-5.1); SODIUM LEVEL 139 MEQ/L (136-145)
[2017-08-23 23:37] LABS: AMORPHOUS SEDIMENT RFX MODERATE (NEGATIVE); KETONE, URINE AUTO RFX NEGATIVE (NEGATIVE); LEUKOCYTE ESTERASE UR AUTO RFX NEGATIVE (NEGATIVE); MUCUS, URINE RFX SMALL (NEGATIVE); NITRITE, URINE AUTO RFX NEGATIVE (NEGATIVE); RBC, URINE AUTO RFX 0 /HPF (0-3); SPECIFIC GRAVITY UR AUTO RFX 1.019 (1.002-1.035); SQUAM EPITHELIAL CELL UR AURFX 7 /HPF (0-6); WBC, URINE AUTO RFX 0 /HPF (0-3)
== END 2017-08-23 23:56 | disposition home or self-care (01) ==
LOC: M ED 21:54
DX: R10.9 Unspecified abdominal pain (principal); R11.0 Nausea; E66.8 Other obesity; F17.210 Nicotine dependence, cigarettes, uncomplicated
CPT/HCPCS: C9113

== ENCOUNTER → 2017-09-16 | Outpatient (REF) | payer OTHER | LOC: M LAB REF 13:08 | DX: J02.9 Acute pharyngitis, unspecified (principal) | CPT/HCPCS: 87070 ==

== ENCOUNTER 2017-12-26 14:34 | Emergency (ER) | payer MEDICAID, SELFPAY, OTHER | END 2017-12-26 16:36 | disposition home or self-care (01) | LOC: M ED 14:34 | DX: J06.9 Acute upper respiratory infection, unspecified (principal); J98.01 Acute bronchospasm; J45.909 Unspecified asthma, uncomplicated; Z72.0 Tobacco use | CPT/HCPCS: 87880 ==

== ENCOUNTER 2018-02-10 23:53 | Emergency (ER) | payer OTHER | END 2018-02-11 06:30 | disposition home or self-care (01) | LOC: M ED 23:53 | DX: M79.601 Pain in right arm (principal); J45.909 Unspecified asthma, uncomplicated; K21.9 Gastro-esophageal reflux disease without esophagitis; F41.9 Anxiety disorder, unspecified; F33.9 Major depressive disorder, recurrent, unspecified; Z79.899 Other long term (current) drug therapy; F17.210 Nicotine dependence, cigarettes, uncomplicated | CPT/HCPCS: 73080 ==

== ENCOUNTER 2018-02-17 18:14 | Emergency (ER) | payer OTHER ==
[2018-02-17 19:22] LABS: KETONE, URINE AUTO RFX NEGATIVE (NEGATIVE); MUCUS, URINE RFX SMALL (NEGATIVE); NITRITE, URINE AUTO RFX NEGATIVE (NEGATIVE); RBC, URINE AUTO RFX TNTC /HPF (0-3); SQUAM EPITHELIAL CELL UR AURFX 0 /HPF (0-6)
[2018-02-17 19:26] LABS: LEUKOCYTE ESTERASE UR AUTO RFX 3+ (NEGATIVE); WBC, URINE AUTO RFX TNTC /HPF (0-3)
[2018-02-17] MEDS ORDERED: BACTRIM 160MG/800MG DS TAB PO (21:15)
[2018-02-17] MEDS: CIPROFLOXACIN 500 MG TAB PO (21:22)
== END 2018-02-17 21:49 | disposition home or self-care (01) ==
LOC: M ED 18:14
DX: N39.0 Urinary tract infection, site not specified (principal); R31.9 Hematuria, unspecified; F41.9 Anxiety disorder, unspecified; F32.9 Major depressive disorder, single episode, unspecified; M54.9 Dorsalgia, unspecified; F17.210 Nicotine dependence, cigarettes, uncomplicated
CPT/HCPCS: 74176

== ENCOUNTER → 2018-05-07 | Outpatient (CLI) | payer OTHER ==
[2018-05-07 15:25] LABS: BASO % 0.4 % (0.0-1.0); EOS # 0.4 10^3/uL (0.0-0.50); EOS % 4.1 % (0.0-3.0); HEMATOCRIT 34.5 % (36.0-47.0); HEMOGLOBIN 11.1 g/dl (12.0-15.5); IMMATURE GRANULOCYTE # 0.1 10^3/uL (0-0); IMMATURE GRANULOCYTE % 0.5 % (0-3.0); LYMPH # 2.5 10^3/uL (1.5-4.5); LYMPH % 26.5 % (24.0-44.0); MEAN CORPUSCULAR HEMOGLOBIN 27.5 pg (27.0-33.0); MEAN CORPUSCULAR HGB CONC 32.2 g/dl (32.0-36.5); MEAN CORPUSCULAR VOLUME 85.4 fl (80.0-96.0); MONO # 0.4 10^3/uL (0.0-0.8); MONO % 4.7 % (0.0-5.0); NEUTROPHILS % 63.8 % (36.0-66.0); PLATELET COUNT, AUTOMATED 318 10^3/uL (150-450); RED BLOOD COUNT 4.04 10^6/uL (4.00-5.40); WHITE BLOOD COUNT 9.3 10^3/uL (4.0-10.0)
[2018-05-07 15:38] LABS: ESTIMATED AVERAGE GLUCOSE 120 MG/DL (60-110); HEMOGLOBIN A1c 5.8 %
[2018-05-07 15:46] LABS: ALKALINE PHOSPHATASE 101 U/L (45-117); ALT/SGPT 14 U/L (12-78); ANION GAP 5 MEQ/L (8-16); AST/SGOT 12 U/L (7-37); BILIRUBIN,TOTAL 0.3 MG/DL (0.2-1.0); BLOOD UREA NITROGEN 7 MG/DL (7-18); CALCIUM LEVEL 8.9 MG/DL (8.5-10.1); CARBON DIOXIDE LEVEL 28 MEQ/L (21-32); CHLORIDE LEVEL 104 MEQ/L (98-107); CREATININE FOR GFR 0.64 MG/DL (0.55-1.30); GLOMERULAR FILTRATION RATE > 60.0 (>60); GLUCOSE, FASTING 89 MG/DL (70-100); POTASSIUM SERUM 4.1 MEQ/L (3.5-5.1); SODIUM LEVEL 137 MEQ/L (136-145)
[2018-05-07 15:47] LABS: ALBUMIN 3.5 GM/DL (3.2-5.2); CHOLESTEROL LEVEL 183 MG/DL (<200); CHOLESTEROL RISK RATIO 5.903 (<5); FREE T4 1.05 NG/DL (0.76-1.46); HDL CHOLESTEROL 31 MG/DL (>40); LDL CHOLESTEROL 107 MG/DL (<100); NON-HDL-C 152 MG/DL; TOTAL PROTEIN 7.4 GM/DL (6.4-8.2); TRIGLYCERIDES LEVEL 224 MG/DL (<150)
== END ==
LOC: M LAB 14:06
DX: F33.9 Major depressive disorder, recurrent, unspecified (principal)
CPT/HCPCS: 84443

== ENCOUNTER 2018-06-16 14:48 | Emergency (ER) | payer OTHER ==
[~2018-06-16] VITALS: Ht 162.6 cm; Wt 98.2 kg
[~2018-06-16 14:48] MED LIST changes: +ALBU17IN2 INH; +BENZ200C70 PO; +CIPR500T3 PO; +ESCI10TA2 PO; +HYDRO50TAB PO; +NAPR-49 PO; +PYRI1TAB5 PO; +TRAZ-160 PO; +TRAZO50TA PO; +ZOFR4TAB14 PO; -ZOFR4TAB3 PO
[2018-06-16] MEDS ORDERED: BUPR1TAB53 (16:10)
[2018-06-16] MEDS ORDERED: CETI10TA (16:10)
[2018-06-16] MEDS ORDERED: CHLO1.4S2 PO (17:00)
[2018-06-16 17:06] VITALS: BP 149/106
== END 2018-06-16 17:17 | disposition home or self-care (01) ==
LOC: M ED 14:48
DX: J06.9 Acute upper respiratory infection, unspecified (principal); F33.9 Major depressive disorder, recurrent, unspecified; F17.210 Nicotine dependence, cigarettes, uncomplicated

== ENCOUNTER → 2018-07-06 | Outpatient (CLI) | payer OTHER ==
[~2018-07-06] MED LIST changes: +BUPR1TAB53; +CETI10TA; +CHLO1.4S2 PO; -NAPR-49 PO; +NAPR-50 PO
[2018-07-06 15:17] LABS: BASO % 0.4 % (0.0-1.0); EOS # 0.3 10^3/uL (0.0-0.50); EOS % 3.6 % (0.0-3.0); HEMATOCRIT 34.4 % (36.0-47.0); HEMOGLOBIN 11.1 g/dl (12.0-15.5); LYMPH # 2.5 10^3/uL (1.5-4.5); MEAN CORPUSCULAR HEMOGLOBIN 27.4 pg (27.0-33.0); MEAN CORPUSCULAR HGB CONC 32.3 g/dl (32.0-36.5); MEAN CORPUSCULAR VOLUME 84.9 fl (80.0-96.0); MONO # 0.4 10^3/uL (0.0-0.8); MONO % 4.2 % (0.0-5.0); NEUTROPHILS # 5.1 10^3/uL (1.8-7.7); NEUTROPHILS % 61.4 % (36.0-66.0); PLATELET COUNT, AUTOMATED 298 10^3/uL (150-450); RED BLOOD COUNT 4.05 10^6/uL (4.00-5.40); WHITE BLOOD COUNT 8.3 10^3/uL (4.0-10.0)
[2018-07-06 15:38] LABS: HEMOGLOBIN A1c 5.5 %
[2018-07-06 15:42] LABS: ALBUMIN 3.4 GM/DL (3.2-5.2); ALT/SGPT 15 U/L (12-78); BILIRUBIN,TOTAL 0.2 MG/DL (0.2-1.0); BLOOD UREA NITROGEN 7 MG/DL (7-18); CALCIUM LEVEL 8.4 MG/DL (8.5-10.1); CARBON DIOXIDE LEVEL 24 MEQ/L (21-32); CHLORIDE LEVEL 105 MEQ/L (98-107); CHOLESTEROL LEVEL 163 MG/DL (<200); CREATININE FOR GFR 0.59 MG/DL (0.55-1.30); FREE T4 1.07 NG/DL (0.76-1.46); GLOMERULAR FILTRATION RATE > 60.0 (>60); GLUCOSE, FASTING 85 MG/DL (70-100); HDL CHOLESTEROL 29 MG/DL (>40); LDL CHOLESTEROL 102 MG/DL (<100); NON-HDL-C 134 MG/DL; POTASSIUM SERUM 4.1 MEQ/L (3.5-5.1); SODIUM LEVEL 139 MEQ/L (136-145); TOTAL PROTEIN 7.5 GM/DL (6.4-8.2); TRIGLYCERIDES LEVEL 160 MG/DL (<150)
== END ==
LOC: M LAB 13:55
PROVIDERS: ATTEND Family Medicine
DX: E66.9 Obesity, unspecified (principal); F33.9 Major depressive disorder, recurrent, unspecified; R73.9 Hyperglycemia, unspecified; D64.9 Anemia, unspecified; F41.9 Anxiety disorder, unspecified; R30.1 Vesical tenesmus

== ENCOUNTER → 2018-10-15 | Outpatient (CLI) | payer OTHER ==
[~2018-10-15] MED LIST changes: -NAPR-50 PO; +NAPR-837 PO
--- NOTE | 2018-10-15 14:36 | REP ---
RIGHT WRIST, FOUR VIEWS: HISTORY: Wrist pain. There is no acute fracture or dislocation. The joint spaces are normal in appearance. IMPRESSION: There is no acute fracture or dislocation. Electronically Signed by Arsenio Lemus MD 10/15/2018 02:40 P
== END ==
LOC: M RAD 14:02
PROVIDERS: ATTEND Family Medicine
DX: M25.531 Pain in right wrist (principal)

== ENCOUNTER → 2019-08-12 | Outpatient (CLI) | payer OTHER ==
[~2019-08-12] MED LIST changes: -ALBU17IN2 INH; +HYDR1TAB33 PO; -HYDRO50TAB PO; +PROV108A INH; -TRAZ-160 PO; +TRAZ-252 PO; +TRAZ1TAB10 PO; -TRAZO50TA PO
== END ==
LOC: M LAB 13:18
PROVIDERS: ATTEND Physician Assistant Medical
DX: R51 Headache (principal); R70.0 Elevated erythrocyte sedimentation rate

== ENCOUNTER → 2019-12-13 | Outpatient (CLI) | payer OTHER ==
[~2019-12-13] MED LIST changes: +AMIT10TA PO; +DICL50TA2 PO; +LORA-674 PO; +PANT20TA2 PO; +VARE05TA PO; +VENTAER INH
== END ==
LOC: M LAB 16:14
PROVIDERS: ATTEND Physician Assistant Medical
DX: R51 Headache (principal)

== ENCOUNTER → 2020-01-03 | Outpatient (CLI) | payer OTHER ==
[~2020-01-03] MED LIST changes: -PANT20TA2 PO; +PANT20TA6 PO
--- NOTE | 2020-01-05 01:54 | ECWPNPC ---
PATIENT NAME: ASHLEY DANIEL : 1985 GENDER: FEMALE VISIT DATE: 01/03/2020 DISCHARGE DATE: 01/03/20 1345 VISIT LOCKED DATE TIME: PHYSICIAN: JOHNIE MARTÍNEZ RESOURCE: JOHNIE MARTÍNEZ REASON FOR APPOINTMENT 1. BACK PAIN HISTORY OF PRESENT ILLNESS GENERAL: - 34-YEAR-OLD FEMALE IN FOR INITIAL PAIN CONSULT. PATIENT STATES HER PAIN IS LOCATED IN HER LOW BACK AND RADIATES UP INTO HER THORACIC AREA. SHE RATES HER PAIN CURRENTLY AT A 10 OUT OF 10 AND DESCRIBES IT ACHING AND SHARP. PATIENT WAS SEEN BY ANOTHER PAIN CENTER WHO SHE ADMITS WAS GOING TO DO TRIGGER POINT INJECTIONS WITH HER. SHE DENIES HISTORY OF TRAUMA AND/OR TREATMENT MODALITIES THAT HAVE BEEN EFFECTIVE IN REDUCING HER PAIN SYMPTOMS. FALL RISK SCREENING: SCREENING :NO FALLS REPORTED IN THE LAST YEAR PAIN SCREENING: PATIENT HAS A COMPLAINT OF ACUTE OR CHRONIC PAIN :YES LOCATION OF PAIN:LOW BACK RADIATES UP THRU THE SPINE INTENSITY OF PAIN (SCALE OF 1 TO 10):10 WHAT DOES YOUR PAIN FEEL LIKE:ACHING, SHARP DURATION:CONTINOUS, CONSTANT, ALL DAY, AWAKENS FROM SLEEP PAIN IS INCREASED BY:ACTIVITIES, PROLONGED STANDING PAIN IS DECREASED BY:USE OF PAIN MEDICATIONS IBUPROFEN LEVEL OF RELIEF FROM PAIN TREATMENTS IN THE PAST:25% PAIN HAS INTERFERED WITH THE FOLLOWING:MOOD, WALKING ABILITY, HOUSEWORK, SLEEP, RELATIONSHIP WITH OTHERS, ENJOYMENT OF LIFE PLAN/GOALS/TREATMENT/INTERVENTION/FOLLOW UP:SEE PLAN NURSING NOTE: - -. PAIN CENTER INTAKE QUESTIONS: DO YOU HAVE A HISTORY OF MRSA? :NO DO YOU TAKE A BLOOD THINNERS? :NO DO YOU HAVE ANY BLEEDING DISORDERS? :NO ANY NEW NUMBNESS OR WEAKNESS IN YOUR LEGS OR ARMS? :NO ANY PACEMAKER,DEFIBRILLATOR, OR DORSAL COLUMN STIMULATOR? :NO DO YOU HAVE ANY RASHES OR OPEN SORES? :NO ARE YOU ALLERGIC TO IV DYE? :NO ARE YOU DIABETIC? :NO ANY NEW PROBLEMS WITH YOUR MEDICATIONS? :NO HAVE YOU RECEIVED A VACCINE IN THE PAST 30 DAYS? :NO DO YOU PLAN TO RECEIVE A VACCINE IN THE NEXT 21 DAYS? :NO DO YOU NEED ANY PRESCRIPTION? :NO DO YOU TAKE ANY IMMUNOSUPPRESSIVE MEDICATIONS? :NO CURRENT MEDICATIONS TAKING TRAZODONE HCL 50 MG TABLET 1 TABLET AT BEDTIME NEEDED ORALLY ONCE A DAY, NOTES: [facility] NOT-TAKING ESCITALOPRAM OXALATE 20 MG TABLET 0.5 TABLET ORALLY ONCE A DAY, NOTES: [facility] NOT-TAKING HYDROXYZINE HCL 50 MG TABLET 1 TABLET NEEDED ORALLY TID NEEDED, NOTES: [facility] ER MEDICATION LIST REVIEWED AND RECONCILED WITH THE PATIENT PAST MEDICAL HISTORY DEPRESSION/ANXIETY INSOMNIA ASTHMA ALLERGIES SEASONALE SURGICAL HISTORY TUBAL - 2015 FAMILY HISTORY FATHER: UNKNOWN MOTHER: UNKNOWN PATERNAL GRAND FATHER: UNKNOWN PATERNAL GRAND MOTHER: UNKNOWN MATERNAL GRAND FATHER: UNKNOWN MATERNAL GRAND MOTHER: UNKNOWN MOTHER - UNKNOWN MEDICAL ISSUES. LOST CONTACT WITH FATHER. SOCIAL HISTORY GENERAL: TOBACCO USE ARE YOU A:CURRENT SMOKER ARE YOU INTERESTED IN QUITTING?NOT READY TO QUIT COUNSELED THE PATIENT ON SMOKING EFFECTS, EDUCATION [id number]/14/2020 HOW MANY CIGARETTES A DAY DO YOU SMOKE?6-10 HOW SOON AFTER YOU WAKE UP DO YOU SMOKE YOUR FIRST CIGARETTE?AFTER 60 MIN HOW OFTEN DO YOU SMOKE CIGARETTES?EVERY DAY PATIENT COUNSELED ON THE DANGERS OF TOBACCO USE AND URGED TO QUIT:01/03/2020 SMOKING CESSATION INFORMATION GIVEN01/03/2020 LATEX QUESTIONNAIRE LATEX ALLERGY : HAVE YOU EVER DEVELOPED ANY TYPE OF REACTION AFTER HANDLING LATEX PRODUCTS SUCH RUBBER GLOVES, CONDOMS, DIAPHRAGMS, BALLOONS, SOCKS, OR UNDERWEAR?NO LATEX ALLERGY : HAVE YOU EVER DEVELOPED ANY TYPE OF REACTION DURING OR AFTER DENTAL APPOINTMENT, VAGINAL/RECTAL EXAMINATION, SURGICAL PROCEDURE, OR ANY OTHER EXPOSURE?NO LATEX RISK : HAVE YOU EVER HAD ANY DIFFICULTY BREATHING OR HIVES AFTER EATING OR HANDLING ANY FRUITS, OR VEGETABLES; SUCH KIWI, BANANAS, STONE FRUITS, OR CHESTNUTSNO LATEX RISK : DO YOU HAVE A PREVIOUS PERSONAL HISTORY OF MORE THAN NINE SURGERIES, SPINA BIFIDA, OR REPEATED CATHERIZATIONS? NO LATEX RISK : ARE YOU FREQUENTLY EXPOSED TO LATEX PRODUCTS IN YOUR OCCUPATION?NO DATE ASKED : 01/03/2020 ALCOHOL SCREENING DID YOU HAVE A DRINK CONTAINING ALCOHOL IN THE PAST YEAR?NO POINTS0 INTERPRETATIONNEGATIVE RECREATIONAL DRUG USE DRUG USE?NO CAFFEINE CAFFEINE USE?YES 2 SODAS DAILY SEXUAL HX HAD SEX IN THE LAST 12 MONTHS (VAGINAL, ORAL, OR ANAL)?YES WITHMEN ONLY PREVENTION STRATEGIES DISCUSSED:OTHER USE PROTECTION?YES HOW OFTEN?SOME OF THE TIME LMP:09/07/17 HAVE YOU EVER HAD AN STD?NO HIV / HEP-C SCREENING HIV TEST OFFERED TO PATIENT:YES DATE OFFERED:09/25/2017 TEST ACCEPTED:YES BROCHURE PROVIDED TO PATIENTYES QUAKER [id number] NONE LANGUAGE LANGUAGES SPOKEN:MALIAN EDUCATION LEVEL OF EDUCATION:HIGH SCHOOL LEARNING BARRIERS / SPECIAL NEEDS HEARING IMPAIRED?NO VISION IMPAIRED?YES COGNITIVELY IMPAIRED?YES :CORRECTIVE LENSES :MENTAL RETARDATION READINESS TO LEARN?YES LEARNING PREFERENCES?YES LEARNING CAPABILITIES PRESENT?YES DOMESTIC VIOLENCE STATUS:SINGLE DO YOU FEEL SAFE IN YOUR ENVIRONMENT?YES 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 OTHERS AT HOME: EX PARTNER, NOW ROOM MATES. PAIN CLINIC PFS, CLERGY, PUBLIC HEALTH REFERRALS PFS REFERRAL NEEDED?NO CLERGY REFERRAL NEEDED?NO PUBLIC HEALTH REFERRAL NEEDED?NO WAS THE PROVIDER NOTIFIED OF ANY PERTINENT INFO?YES HAS THE PATIENT BEEN EDUCATED REGARDING HIS/HER PLAN OF CARE?YES HAS THE PATIENT BEEN EDUCATED REGARDING PAIN, THE RISK FOR PAIN, THE IMPORTANCE OF EFFECTIVE PAIN MANAGEMENT, AND THE PAIN ASSESSMENT PROCESS?YES HOSPITALIZATION/MAJOR DIAGNOSTIC PROCEDURE NO HOSPITALIZATION HISTORY. REVIEW OF SYSTEMS CONSTITUTIONAL: ANY RECENT FEVER NO . CHILLS NO . WEIGHT CHANGE OF UNKNOWN REASONS NO . MUSCULOSKELETAL: ANY UNUSUAL JOINT PAIN OR SWELLING NOT MENTIONED NO . SYSTEMIC LUPUS NO . ANY NEUROMUSCULAR DISORDER NOT MENTIONED NO . LYME DISEASE NO . GASTROENTEROLOGY: ANY NEW CHANGE IN BOWEL CONTROL? NO . HISTORY OF LIVER DISORDER NOT MENTIONED NO . HISTORY OF UNUSUAL ABDOMINAL PAIN OR CRAMPING NOT MENTIONED NO . NO CONSTIPATION. GENITOURINARY: ANY NEW CHANGE IN BLADDER CONTROL? NO . ANY RENAL/KIDNEY CONDITON NOT MENTIONED NO . NEUROLOGY: HISTORY OF TBI NOT MENTIONED NO . OTHER NEW NUMBNESS OR PAIN PATTERNS NOT MENTIONED NO . NEW ONSET DIZZINESS OR NEUROLOGICAL CHANGES NOT MENTIONED NO . HISTORY OF SEVERE HEADACHES NOT MENTIONED NO . HISTORY OF STROKE OR NEUROLOGICAL DISORDER NOT MENTIONED NO . CARDIOLOGY: HEART SURGERY NO . CONGESTIVE HEART FAILURE/FLUID OVERLOAD NOT MENTIONED NO . HISTORY OF CHEST PAIN,IRREGULAR HEART BEAT NOT MENTIONED NO . RESPIRATORY: SHORTNESS OF BREATH ON EXERTION, WHEEZES, UNUSUAL COUGH NOT MENTIONED NO . ENDOCRINOLOGY: ADRENAL GLAND OR THYROID DISORDERS NOT MENTIONED NO . UNUSUAL URINATION, DIZZINESS OR LETHARGY NOT MENTIONED NO . VITAL SIGNS WT 226.0 LBS, HT 64 IN, BMI 38.79 INDEX, BP 126/74 MM HG, HR 92 /MIN, RR 18 /MIN, TEMP 97.7 F, OXYGEN SAT % 98%, SAFE IN ENV? (Y/N) YES, NA INITIALS AW [id number] ASUMADU IMMUNOHEMATOLOGIST. EXAMINATION GENERAL EXAMINATION: GENERALNO ACUTE DISTRESS, WELL NOURISHED AND HYDRATED. PSYCHAPPROPRIATE MOOD AND AFFECT . LUNGS:CLEAR TO AUSCULTATION BILATERALLY, NO WHEEZES, RHONCHI, RALES. HEART:NO MURMURS, REGULAR RATE AND RHYTHM. BACK:POINT TENDER BILATERAL LOW BACK, SURROUNDING SKIN SHOWS NO ERYTHEMA, ECCHYMOSIS, INCREASED WARMTH, AND/OR SKIN ERUPTIONS NOTED. BANDS OF RESTRICTIVE TISSUE NOTED OVER TRIGGER POINTS . ASSESSMENTS MYALGIA, OTHER SITE - M79.18 (PRIMARY) TREATMENT MYALGIA, OTHER SITE START IBUPROFEN TABLET, 800 MG, 1 TABLET WITH FOOD OR MILK NEEDED, ORALLY, THREE TIMES A DAY, 30 DAYS, 90 TABLET NOTES: BILATERAL LOW BACK TPI TPI INFO GIVEN MOOSE CAMARGO-Amrit. CLINICAL NOTES: 34-YEAR-OLD FEMALE IN FOR INITIAL PAIN CONSULT. GIVEN PRESENTING SYMPTOMS AND RESULTS OF PHYSICAL EXAMINATION RECOMMENDED TPI OF THE LOW BACK BILATERALLY WITH POST PROCEDURAL FOLLOW-UP. PATIENT HAS EXPRESSED UNDERSTANDING OF AND WAS IN AGREEMENT WITH TREATMENT PLAN. GIVEN TIME TO ASK QUESTIONS AND EXPRESS CONCERNS. . PROCEDURE CODES FA211 ESTABILISHED PATIENT [facility] CHARGE DISPOSITION & COMMUNICATION FOLLOW UP POSTPROCEDURE (REASON: BILATERAL LOW BACK TPI) ELECTRONICALLY SIGNED BY MARY JO POTTER ON 01/04/2020 AT 08:36 AM EDT DISCLAIMER : THIS IS A VISIT SUMMARY EXTRACTED FROM THE [employer] CHART. IT IS NOT A COPY OF THE [employer] PROGRESS NOTE. GENNA
== END ==
LOC: M PAIN 13:00
PROVIDERS: ATTEND Family Medicine
DX: M79.18 Myalgia, other site (principal)

== ENCOUNTER → 2020-01-24 | Outpatient (POV) | payer OTHER ==
[~2020-01-24] MED LIST changes: +BUPIVACAINE HCL 0.25% 10ML VIAL ONE; +BUPIVACAINE HCL 0.25% 30ML VIAL ONE; +NORCO, ANEXSIA 5/325MG TABLET (HYDROcodone/ACETAMINOPHEN) ONE; +diazePAM 5 MG TAB ONE
== END ==
LOC: M PAIN 10:45
PROVIDERS: ATTEND Anesthesiology
DX: M79.18 Myalgia, other site (principal)

== ENCOUNTER → 2020-01-30 | Outpatient (CLI) | payer OTHER ==
[~2020-01-30] MED LIST changes: -BUPIVACAINE HCL 0.25% 10ML VIAL ONE; -BUPIVACAINE HCL 0.25% 30ML VIAL ONE; -NORCO, ANEXSIA 5/325MG TABLET (HYDROcodone/ACETAMINOPHEN) ONE; -diazePAM 5 MG TAB ONE
== END ==
LOC: M LABSMTC 10:00
PROVIDERS: ATTEND Anesthesiology
DX: Z01.812 Encounter for preprocedural laboratory examination (principal); Z20.828 Contact with and (suspected) exposure to other viral communicable diseases
CPT/HCPCS: C9803; U0002

== ENCOUNTER → 2020-02-08 | Outpatient (CLI) | payer OTHER ==
[2020-02-08 12:29] LABS: FREE THYROXINE INDEX 1.9 % (1.3-4.8); THYROID STIMULATING HORMONE 1.32 uIU/ML (0.358-3.740); THYROXINE (T4) 6.3 UG/DL (4.5-12.0)
[2020-02-08 13:56] LABS: TOTAL 25(OH) VITAMIN D 36.4 NG/ML (30.0-100.0)
== END ==
LOC: M LABSMTC 10:27
PROVIDERS: ATTEND Nurse Practitioner Psychiatric/Mental Health
DX: F33.0 Major depressive disorder, recurrent, mild (principal); E55.9 Vitamin D deficiency, unspecified; F63.81 Intermittent explosive disorder

== ENCOUNTER → 2020-02-14 | Outpatient (CLI) | payer OTHER | LOC: M PAIN 10:34 | PROVIDERS: ATTEND Family Medicine | DX: M79.18 Myalgia, other site (principal) ==

== ENCOUNTER → 2020-03-16 | Outpatient (CLI) | payer OTHER | LOC: M PAIN 13:21 | PROVIDERS: ATTEND Family Medicine | DX: M79.18 Myalgia, other site (principal) ==

== ENCOUNTER → 2020-03-23 | Outpatient (CLI) | payer OTHER | LOC: M LABSMTC 14:19 | PROVIDERS: ATTEND Anesthesiology | DX: Z20.828 Contact with and (suspected) exposure to other viral communicable diseases (principal) | CPT/HCPCS: C9803; U0003 ==

== ENCOUNTER → 2020-03-28 | Outpatient (CLI) | payer OTHER ==
[~2020-03-28] MED LIST changes: +BUPIVACAINE HCL 0.25% 10ML VIAL As Ordered ONE; +BUPIVACAINE HCL 0.25% 30ML VIAL As Ordered ONE; +NORCO, ANEXSIA 5/325MG TABLET (HYDROcodone/ACETAMINOPHEN) As Ordered ONE; +TRIAMCINOLONE ACETONIDE SUSP 40 MG/ML VIAL (J3301) As Ordered ONE; +diazePAM 5 MG TAB As Ordered ONE
--- NOTE | 2020-04-02 13:44 | ECWPNPC ---
PATIENT NAME: ASHLEY DANIEL : 1985 GENDER: FEMALE VISIT DATE: 03/28/2020 DISCHARGE DATE: 03/28/20 1528 VISIT LOCKED DATE TIME: PHYSICIAN: KEVIN POWELL MD RESOURCE: KEVIN POWELL MD REASON FOR APPOINTMENT 1. MINERVA THORACIC/LOW BACK TPI HISTORY OF PRESENT ILLNESS PAIN CENTER INTAKE QUESTIONS: DO YOU HAVE A HISTORY OF MRSA? :NO DO YOU TAKE A BLOOD THINNERS? :NO DO YOU HAVE ANY BLEEDING DISORDERS? :NO ANY NEW NUMBNESS OR WEAKNESS IN YOUR LEGS OR ARMS? :NO ANY PACEMAKER,DEFIBRILLATOR, OR DORSAL COLUMN STIMULATOR? :NO DO YOU HAVE ANY RASHES OR OPEN SORES? :NO ARE YOU ALLERGIC TO IV DYE? :NO ARE YOU DIABETIC? :NO ANY NEW PROBLEMS WITH YOUR MEDICATIONS? :NO HAVE YOU RECEIVED A VACCINE IN THE PAST 30 DAYS? :NO DO YOU PLAN TO RECEIVE A VACCINE IN THE NEXT 21 DAYS? :NO DO YOU TAKE ANY IMMUNOSUPPRESSIVE MEDICATIONS? :NO ANY HISTORY OF SEIZURES? :NO ANY HISTORY OF CARDIAC ISSUES OR EVENTS? :NO DO YOU HAVE SLEEP APNEA? :YES DO YOU WEAR A CPAP?YES ANY RECENT HEAD INJURY? :NO DO YOU HAVE ANY NEW INFECTIONS? :NO IS THERE A CHANCE YOU COULD BE ? :NO ARE YOU BREAST FEEDING? :NO WHEN DID YOU LAST EAT? : 03/27/20202229 WHEN DID YOU LAST DRINK? : 03/28/2020 1230 WHAT DID YOU LAST DRINK? : WATER NAME OF PERSON DRIVING YOU HOME? : -[employer] DO YOU HAVE ANY OTHER QUESTIONS OR CONCERNS? : - GENERAL: -. FALL RISK SCREENING: SCREENING :NO FALLS REPORTED IN THE LAST YEAR PAIN SCREENING: PATIENT HAS A COMPLAINT OF ACUTE OR CHRONIC PAIN :YES LOCATION OF PAIN:MID BACK, LOW BACK INTENSITY OF PAIN (SCALE OF 1 TO 10):8 WHAT DOES YOUR PAIN FEEL LIKE:BURNING, CONTINOUS, SHARP DURATION:CONSTANT PAIN IS INCREASED BY:OTHERS WALKING PAIN IS DECREASED BY:OTHERS NOTHING REALLY HELPS NURSING NOTE: -. CURRENT MEDICATIONS TAKING TRAZODONE HCL 100 MG TABLET 1 TABLET AT BEDTIME NEEDED ORALLY ONCE A DAY, NOTES: 03/27/2020 2130 TAKING CLARITIN 10 MG TABLET 1 TABLET ORALLY ONCE A DAY, NOTES: 03/28/2020 0900 TAKING BACLOFEN 10 MG TABLET 1 TABLET WITH FOOD OR MILK ORALLY THREE TIMES A DAY, NOTES: 03/28/2020 0900 NOT-TAKING IBUPROFEN 800 MG TABLET 1 TABLET WITH FOOD OR MILK NEEDED ORALLY THREE TIMES A DAY NOT-TAKING ESCITALOPRAM OXALATE 20 MG TABLET 0.5 TABLET ORALLY ONCE A DAY, NOTES: [facility] NOT-TAKING HYDROXYZINE HCL 50 MG TABLET 1 TABLET NEEDED ORALLY TID NEEDED, NOTES: [facility] ER MEDICATION LIST REVIEWED AND RECONCILED WITH THE PATIENT PAST MEDICAL HISTORY DEPRESSION/ANXIETY INSOMNIA ASTHMA ALLERGIES SEASONALE SURGICAL HISTORY TUBAL - 2015 FAMILY HISTORY FATHER: MOTHER: PATERNAL GRAND FATHER: UNKNOWN PATERNAL GRAND MOTHER: UNKNOWN MATERNAL GRAND FATHER: UNKNOWN MATERNAL GRAND MOTHER: UNKNOWN MOTHER - UNKNOWN MEDICAL ISSUES. LOST CONTACT WITH FATHER. SOCIAL HISTORY GENERAL: TOBACCO USE ARE YOU A:CURRENT SMOKER ARE YOU INTERESTED IN QUITTING?NOT READY TO QUIT COUNSELED THE PATIENT ON SMOKING EFFECTS, EDUCATION [id number]/06/2020 HOW MANY CIGARETTES A DAY DO YOU SMOKE?6-10 HOW SOON AFTER YOU WAKE UP DO YOU SMOKE YOUR FIRST CIGARETTE?AFTER 60 MIN HOW OFTEN DO YOU SMOKE CIGARETTES?EVERY DAY PATIENT COUNSELED ON THE DANGERS OF TOBACCO USE AND URGED TO QUIT:03/27/2020 SMOKING CESSATION INFORMATION GIVEN01/03/2020 LATEX QUESTIONNAIRE LATEX ALLERGY : HAVE YOU EVER DEVELOPED ANY TYPE OF REACTION AFTER HANDLING LATEX PRODUCTS SUCH RUBBER GLOVES, CONDOMS, DIAPHRAGMS, BALLOONS, SOCKS, OR UNDERWEAR?NO LATEX ALLERGY : HAVE YOU EVER DEVELOPED ANY TYPE OF REACTION DURING OR AFTER DENTAL APPOINTMENT, VAGINAL/RECTAL EXAMINATION, SURGICAL PROCEDURE, OR ANY OTHER EXPOSURE?NO LATEX RISK : HAVE YOU EVER HAD ANY DIFFICULTY BREATHING OR HIVES AFTER EATING OR HANDLING ANY FRUITS, OR VEGETABLES; SUCH KIWI, BANANAS, STONE FRUITS, OR CHESTNUTSNO LATEX RISK : DO YOU HAVE A PREVIOUS PERSONAL HISTORY OF MORE THAN NINE SURGERIES, SPINA BIFIDA, OR REPEATED CATHERIZATIONS? NO LATEX RISK : ARE YOU FREQUENTLY EXPOSED TO LATEX PRODUCTS IN YOUR OCCUPATION?NO DATE ASKED : 03/28/2020 ALCOHOL SCREENING DID YOU HAVE A DRINK CONTAINING ALCOHOL IN THE PAST YEAR?NO POINTS0 INTERPRETATIONNEGATIVE RECREATIONAL DRUG USE DRUG USE?NO CAFFEINE CAFFEINE USE?YES 2 SODAS DAILY SEXUAL HX HAD SEX IN THE LAST 12 MONTHS (VAGINAL, ORAL, OR ANAL)?YES WITHMEN ONLY PREVENTION STRATEGIES DISCUSSED:OTHER USE PROTECTION?YES HOW OFTEN?SOME OF THE TIME LMP:09/07/17 HAVE YOU EVER HAD AN STD?NO HIV / HEP-C SCREENING HIV TEST OFFERED TO PATIENT:YES DATE OFFERED:09/25/2017 TEST ACCEPTED:YES BROCHURE PROVIDED TO PATIENTYES CONFUCIANISM [id number] NONE LANGUAGE LANGUAGES SPOKEN:URDU EDUCATION LEVEL OF EDUCATION:HIGH SCHOOL LEARNING BARRIERS / SPECIAL NEEDS HEARING IMPAIRED?NO VISION IMPAIRED?YES COGNITIVELY IMPAIRED?YES :CORRECTIVE LENSES :MENTAL RETARDATION READINESS TO LEARN?YES LEARNING PREFERENCES?YES LEARNING CAPABILITIES PRESENT?YES DOMESTIC VIOLENCE STATUS:SINGLE DO YOU FEEL SAFE IN YOUR ENVIRONMENT?YES 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 OTHERS AT HOME: EX PARTNER, NOW ROOM MATES. PAIN CLINIC PFS, CLERGY, PUBLIC HEALTH REFERRALS PFS REFERRAL NEEDED?NO CLERGY REFERRAL NEEDED?NO PUBLIC HEALTH REFERRAL NEEDED?NO WAS THE PROVIDER NOTIFIED OF ANY PERTINENT INFO?YES HAS THE PATIENT BEEN EDUCATED REGARDING HIS/HER PLAN OF CARE?YES HAS THE PATIENT BEEN EDUCATED REGARDING PAIN, THE RISK FOR PAIN, THE IMPORTANCE OF EFFECTIVE PAIN MANAGEMENT, AND THE PAIN ASSESSMENT PROCESS?YES ADVANCE DIRECTIVE ADVANCE DIRECTIVE DISCUSSED WITH PATIENT:YES DOES NOT HAVE ADVANCED DIRECTIVES AND DOES NOT NEED INFORMATION HOSPITALIZATION/MAJOR DIAGNOSTIC PROCEDURE DENIES PAST HOSPITALIZATION VITAL SIGNS WT 226 LBS, HT 64 IN, BMI 38.79 INDEX, BP 140/80 MM HG, HR 107 /MIN, RR 18 /MIN, TEMP 97.8 F, OXYGEN SAT % 98%, SAFE IN ENV? (Y/N) YES, NA INITIALS SC 14:27, REVIEWED BY: DELMA. EXAMINATION GENERAL EXAMINATION: THE PATIENT IS ALERT, ORIENTED TIMES THREE AND COOPERATIVE. HEART SHOWS REGULAR RHYTHM, NO MURMURS AND NO GALLOPS. LUNGS ARE CLEAR TO AUSCULTATION. 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 PROCEDURES PAIN NURSING RECORD PRE-PROCEDURE IV SITE N/A PROCEDURE IN ROOM 1416, PHYSICIAN IN ROOM 1509, START 1512, FINISH 1515, PHYSICIAN OUT OF ROOM 1516, OUT OF ROOM 1530, STEROID KENALOG 40 MG, O2 RA, ECG N/A, PATIENT SHIELDED NO, SAFETY STRAP NO, PREP ALCOHOL BY DR POWELL, IV INFUSED N/A, DRESSING TEGADERM BY Caleb MENDOZA RN LOC: 03/28/2020 1511 Caleb MENDOZA RN , 1. ALERT, ORIENTED RESP: 03/28/2020 1511 Caleb MENDOZA RN , 1. REGULAR, NO DYSPNEA COLOR: 03/28/2020 1511 N REJI RN , 1. PINK SKIN: 03/28/2020 1511 N MARICARMEN MENDOZA , 1. WARM, DRY POSITION: 03/28/2020 1511 N MARICARMEN MENDOZA , 4. OTHER- SITTING POSITION VITALS: 03/28/2020 1526 LEXIS VALENTIN- 122/81-57-08-100% DISCHARGE: POST PAIN 11/29 BILATERAL THORAIC AND BIALTERAL LOW BACK, DRESSING SITE DRY AND INTACT, IV N/A, GAIT STEADY, TEACHING COMPLETED, PATIENT ACKNOWLEDGES UNDERSTANDING YES PATIENT VERBLAIZES UNDERSTANDING OF DISCHARGE INSTRUCTIONS REVIEWED, PATIENT DISCHARGED AT 1530 PN TRIGGER POINT INJECTION WITH STEROIDS PRE PROCEDURE DIAGNOSIS 1. MYALGIA 2. PAIN AT BILATERAL THORACIC AREA AND BILATERAL LOWER BACK AREA POST PROCEDURE DIAGNOSIS 1. MYALGIA 2. PAIN AT BILATERAL THORACIC AREA AND BILATERAL LOWER BACK AREA PROCEDURE TRIGGER POINT INJECTION AT BILATERAL THORACIC AREA AND BILATERAL LOWER BACK AREA SURGEON DR. KEVIN POWELL ON SITE MANAGER NONE ANESTHESIA LOCAL PRE PROCEDURE NOTE THE PATIENT HAS A HISTORY OF CHRONIC PAIN AT THE RIGHT AND LEFT THORACIC AREA AND RIGHT AND LEFT LOWER BACK AREA. I EVALUATED THE PATIENT AND REVIEWED THE CHART. THERE IS EVIDENCE OF BANDS OF TISSUE WITH RESTRICTION OF MOVEMENT AND PRESENCE OF TRIGGER POINT AT THE RIGHT AND LEFT THORACIC AREA AND RIGHT AND LEFT LOWER BACK AREA. I WENT OVER THE RISKS, ALTERNATIVES, AND BENEFITS ASSOCIATED WITH THIS PROCEDURE. I DISCUSSED THAT THE USE OF STEROIDS MAY CONTRIBUTE TO IMMUNOSUPPRESSION OF THE PATIENT'S BODY AGAINST INFECTIONS SUCH COVID-19. THE PATIENT IS AWARE OF THE POTENTIAL COMPLICATIONS ASSOCIATED WITH THIS VIRUS, INCLUDING, BUT NOT LIMITED TO, . THE PATIENT WOULD LIKE TO PROCEED AND GIVE CONSENT TO PERFORMED THE PROCEDURE. THE PATIENT DENIES UNEXPLAINABLE WEIGHT LOSS, FEVER, CHILLS, OR NEW CHANGES IN URINARY OR BOWEL CONTROL. THE PATIENT IS COVID-19 NEGATIVE DESCRIPTION OF PROCEDURE THE PATIENT WAS BROUGHT TO THE PROCEDURE ROOM AND PLACED IN THE SITTING POSITION. THE AREA WAS CLEANED WITH ALCOHOL. THE PROCEDURE WAS DONE USING ASEPTIC STERILE TECHNIQUE. A TIMEOUT WAS PERFORMED WHERE LATERALITY AND THE SITE OF THE PROCEDURE WERE CHECKED AND CONFIRMED WITH EVERYONE IN THE ROOM. USING A 25-GAUGE NEEDLE, TRIGGER POINTS WERE INJECTED AT THE RIGHT AND LEFT THORACIC AREA AND RIGHT AND LEFT LOWER BACK AREA WITH A TOTAL OF 40 ML OF BUPIVACAINE 0.25% AND KENALOG 40 MG. THE MEDICATIONS WERE VERIFIED WITH THE NURSE. THERE WAS NO EVIDENCE OF BLOOD OR PARESTHESIA DURING THE PROCEDURE. THE PATIENT WAS SENT TO THE RECOVERY ROOM. THE PATIENT WAS MOVING THE EXTREMITIES AND DOING WELL. THERE WERE NO COMPLICATIONS DURING THE PROCEDURE. ESTIMATED BLOOD LOSS WAS LESS THAN 5 ML POST PROCEDURE NOTE THE PROCEDURE DONE WAS DISCUSSED WITH THE PATIENT. THE PATIENT WILL BE SEEN IN A FOLLOW UP IN THE NEXT FEW WEEKS. I AM LOOKING FOR LONG LASTING PAIN RELIEF FOR THE PATIENT WITH THIS INTERVENTION. INSTRUCTIONS WERE GIVEN, QUESTIONS WERE ANSWERED, AND THE PATIENT EXPRESSED UNDERSTANDING AND AGREES WITH THE PLAN. I, MANDI MENA, DOCUMENTED THE ABOVE INFORMATION ACTING A SCRIBE FOR DR. POWELL. I HAVE REVIEWED THE ABOVE DOCUMENT, WRITTEN BY MANDI MENA, HOOD MAKER, AND I VERIFY THAT IT IS ACCURATE PROCEDURE CODES 93836 INJECT TRIGGER POINTS 3/> DISPOSITION & COMMUNICATION FOLLOW UP FOLLOW UP WITH ELECTRICAL APPLIANCE SERVICER (REASON: POST TPI BILATERAL THORACIC AND LOW BACK) ELECTRONICALLY SIGNED BY KEVIN POWELL MD, MD ON 04/02/2020 AT 01:40 PM EDT DISCLAIMER : THIS IS A VISIT SUMMARY EXTRACTED FROM THE [employer] CHART. IT IS NOT A COPY OF THE [employer] PROGRESS NOTE. GENNA
== END ==
LOC: M PAIN 14:30
PROVIDERS: ATTEND Anesthesiology
DX: M79.18 Myalgia, other site (principal); F32.9 Major depressive disorder, single episode, unspecified; F41.9 Anxiety disorder, unspecified; G47.00 Insomnia, unspecified; F17.210 Nicotine dependence, cigarettes, uncomplicated; J45.909 Unspecified asthma, uncomplicated; Z79.899 Other long term (current) drug therapy
CPT/HCPCS: 20553; J3301

== ENCOUNTER → 2020-04-26 | Outpatient (CLI) | payer OTHER ==
[~2020-04-26] MED LIST changes: -BUPIVACAINE HCL 0.25% 10ML VIAL As Ordered ONE; -BUPIVACAINE HCL 0.25% 30ML VIAL As Ordered ONE; -NORCO, ANEXSIA 5/325MG TABLET (HYDROcodone/ACETAMINOPHEN) As Ordered ONE; -TRIAMCINOLONE ACETONIDE SUSP 40 MG/ML VIAL (J3301) As Ordered ONE; -diazePAM 5 MG TAB As Ordered ONE
--- NOTE | 2020-05-01 02:23 | ECWPNPC ---
PATIENT NAME: ASHLEY DANIEL : 1985 GENDER: FEMALE VISIT DATE: 04/26/2020 DISCHARGE DATE: 04/26/20 1505 VISIT LOCKED DATE TIME: PHYSICIAN: JOHNIE MARTÍNEZ RESOURCE: JOHNIE MARTÍNEZ REASON FOR APPOINTMENT 1. POST MINERVA THORACIC/LOW BACK TPI HISTORY OF PRESENT ILLNESS GENERAL: - 34-YEAR-OLD FEMALE IN FOR POST TPI FOLLOW-UP. SHE RATES HER PAIN PREPROCEDURE AT A 10 OUT OF 10 AND POSTPROCEDURE AT A 2-3 OUT OF 10 TIMES ONE MONTH. SHE RATES HER PAIN CURRENTLY AT A 5 OUT OF 10 AND DESCRIBES IT ACHING, AND THROBBING. SHE FEELS HER MEDICATIONS ARE HELPFUL AND DENIES MED SIDE EFFECTS AT THIS TIME. FALL RISK SCREENING: SCREENING :NO FALLS REPORTED IN THE LAST YEAR PAIN SCREENING: PATIENT HAS A COMPLAINT OF ACUTE OR CHRONIC PAIN :YES LOCATION OF PAIN:UPPER BACK, LOW BACK INTENSITY OF PAIN (SCALE OF 1 TO 10):5 WHAT DOES YOUR PAIN FEEL LIKE:ACHING, THROBBING DURATION:INTERMITTENT PAIN IS INCREASED BY:ACTIVITIES PAIN IS DECREASED BY:OTHERS LAYING DOWN TREATMENT/MEDICATIONS USED TO MANAGE PAIN:OPIOIDS BACLOFEN LEVEL OF RELIEF FROM PAIN TREATMENTS IN THE PAST:75% PAIN HAS INTERFERED WITH THE FOLLOWING:BATHING/DRESSING, WALKING ABILITY, HOUSEWORK, SLEEP, TRANSPORTATION, TOILETING NURSING NOTE: -. PAIN CENTER INTAKE QUESTIONS: DO YOU HAVE A HISTORY OF MRSA? :NO DO YOU TAKE A BLOOD THINNERS? :NO DO YOU HAVE ANY BLEEDING DISORDERS? :NO ANY NEW NUMBNESS OR WEAKNESS IN YOUR LEGS OR ARMS? :NO ANY PACEMAKER,DEFIBRILLATOR, OR DORSAL COLUMN STIMULATOR? :NO DO YOU HAVE ANY RASHES OR OPEN SORES? :NO ARE YOU ALLERGIC TO IV DYE? :NO ARE YOU DIABETIC? :NO ANY NEW PROBLEMS WITH YOUR MEDICATIONS? :NO HAVE YOU RECEIVED A VACCINE IN THE PAST 30 DAYS? :NO DO YOU PLAN TO RECEIVE A VACCINE IN THE NEXT 21 DAYS? :YES IF SO WHAT VACCINE AND WHEN? FLU VACCINE DO YOU NEED ANY PRESCRIPTION? :NO DO YOU TAKE ANY IMMUNOSUPPRESSIVE MEDICATIONS? :NO IS THERE A CHANCE YOU COULD BE ? :NO ARE YOU BREAST FEEDING? :NO CURRENT MEDICATIONS TAKING TRAZODONE HCL 100 MG TABLET 1 TABLET AT BEDTIME NEEDED ORALLY ONCE A DAY TAKING CLARITIN 10 MG TABLET 1 TABLET ORALLY ONCE A DAY TAKING BACLOFEN 10 MG TABLET 1 TABLET WITH FOOD OR MILK ORALLY THREE TIMES A DAY TAKING SEROQUEL 100 MG TABLET 1 TABLET AT BEDTIME ORALLY ONCE A DAY NOT-TAKING IBUPROFEN 800 MG TABLET 1 TABLET WITH FOOD OR MILK NEEDED ORALLY THREE TIMES A DAY NOT-TAKING ESCITALOPRAM OXALATE 20 MG TABLET 0.5 TABLET ORALLY ONCE A DAY, NOTES: [facility] NOT-TAKING HYDROXYZINE HCL 50 MG TABLET 1 TABLET NEEDED ORALLY TID NEEDED, NOTES: [facility] MEDICATION LIST REVIEWED AND RECONCILED WITH THE PATIENT PAST MEDICAL HISTORY DEPRESSION/ANXIETY INSOMNIA ASTHMA ALLERGIES SEASONALE SURGICAL HISTORY TUBAL - 2015 FAMILY HISTORY FATHER: MOTHER: PATERNAL GRAND FATHER: UNKNOWN PATERNAL GRAND MOTHER: UNKNOWN MATERNAL GRAND FATHER: UNKNOWN MATERNAL GRAND MOTHER: UNKNOWN MOTHER - UNKNOWN MEDICAL ISSUES. LOST CONTACT WITH FATHER. SOCIAL HISTORY GENERAL: TOBACCO USE ARE YOU A:CURRENT SMOKER ARE YOU INTERESTED IN QUITTING?NOT READY TO QUIT COUNSELED THE PATIENT ON SMOKING EFFECTS, EDUCATION [id number]/05/2020 HOW MANY CIGARETTES A DAY DO YOU SMOKE?6-10 HOW SOON AFTER YOU WAKE UP DO YOU SMOKE YOUR FIRST CIGARETTE?AFTER 60 MIN HOW OFTEN DO YOU SMOKE CIGARETTES?EVERY DAY PATIENT COUNSELED ON THE DANGERS OF TOBACCO USE AND URGED TO QUIT:03/27/2020 SMOKING CESSATION INFORMATION GIVEN01/03/2020 LATEX QUESTIONNAIRE LATEX ALLERGY : HAVE YOU EVER DEVELOPED ANY TYPE OF REACTION AFTER HANDLING LATEX PRODUCTS SUCH RUBBER GLOVES, CONDOMS, DIAPHRAGMS, BALLOONS, SOCKS, OR UNDERWEAR?NO LATEX ALLERGY : HAVE YOU EVER DEVELOPED ANY TYPE OF REACTION DURING OR AFTER DENTAL APPOINTMENT, VAGINAL/RECTAL EXAMINATION, SURGICAL PROCEDURE, OR ANY OTHER EXPOSURE?NO LATEX RISK : HAVE YOU EVER HAD ANY DIFFICULTY BREATHING OR HIVES AFTER EATING OR HANDLING ANY FRUITS, OR VEGETABLES; SUCH KIWI, BANANAS, STONE FRUITS, OR CHESTNUTSNO LATEX RISK : DO YOU HAVE A PREVIOUS PERSONAL HISTORY OF MORE THAN NINE SURGERIES, SPINA BIFIDA, OR REPEATED CATHERIZATIONS? NO LATEX RISK : ARE YOU FREQUENTLY EXPOSED TO LATEX PRODUCTS IN YOUR OCCUPATION?NO DATE ASKED : 03/28/2020 ALCOHOL SCREENING DID YOU HAVE A DRINK CONTAINING ALCOHOL IN THE PAST YEAR?NO POINTS0 INTERPRETATIONNEGATIVE RECREATIONAL DRUG USE DRUG USE?NO CAFFEINE CAFFEINE USE?YES 2 SODAS DAILY SEXUAL HX HAD SEX IN THE LAST 12 MONTHS (VAGINAL, ORAL, OR ANAL)?YES WITHMEN ONLY PREVENTION STRATEGIES DISCUSSED:OTHER USE PROTECTION?YES HOW OFTEN?SOME OF THE TIME LMP:09/07/17 HAVE YOU EVER HAD AN STD?NO HIV / HEP-C SCREENING HIV TEST OFFERED TO PATIENT:YES DATE OFFERED:09/25/2017 TEST ACCEPTED:YES BROCHURE PROVIDED TO PATIENTYES MORAVIAN [id number] NONE LANGUAGE LANGUAGES SPOKEN:NIGERIEN EDUCATION LEVEL OF EDUCATION:HIGH SCHOOL LEARNING BARRIERS / SPECIAL NEEDS HEARING IMPAIRED?NO VISION IMPAIRED?YES COGNITIVELY IMPAIRED?YES :CORRECTIVE LENSES :MENTAL RETARDATION READINESS TO LEARN?YES LEARNING PREFERENCES?YES LEARNING CAPABILITIES PRESENT?YES DOMESTIC VIOLENCE STATUS:SINGLE DO YOU FEEL SAFE IN YOUR ENVIRONMENT?YES 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 OTHERS AT HOME: EX PARTNER, NOW ROOM MATES. PAIN CLINIC PFS, CLERGY, PUBLIC HEALTH REFERRALS PFS REFERRAL NEEDED?NO CLERGY REFERRAL NEEDED?NO PUBLIC HEALTH REFERRAL NEEDED?NO WAS THE PROVIDER NOTIFIED OF ANY PERTINENT INFO?YES HAS THE PATIENT BEEN EDUCATED REGARDING HIS/HER PLAN OF CARE?YES HAS THE PATIENT BEEN EDUCATED REGARDING PAIN, THE RISK FOR PAIN, THE IMPORTANCE OF EFFECTIVE PAIN MANAGEMENT, AND THE PAIN ASSESSMENT PROCESS?YES ADVANCE DIRECTIVE ADVANCE DIRECTIVE DISCUSSED WITH PATIENT:YES DOES NOT HAVE ADVANCED DIRECTIVES AND DOES NOT NEED INFORMATION HOSPITALIZATION/MAJOR DIAGNOSTIC PROCEDURE NO HOSPITALIZATION HISTORY. REVIEW OF SYSTEMS CONSTITUTIONAL: ANY RECENT FEVER NO . CHILLS NO . WEIGHT CHANGE OF UNKNOWN REASONS NO . GASTROENTEROLOGY: NEW UNEXPLAINABLE CHANGES IN BOWEL CONTROL NO . CONSTIPATION NO . GENITOURINARY: ANY NEW CHANGE IN BLADDER CONTROL? NO . NEUROLOGY: NEW ONSET DIZZINESS OR NEUROLOGICAL CHANGES NOT MENTIONED NO . NEW NUMBNESS OR PAIN PATTERNS NOT MENTIONED AND PERTINENT TO TODAY'S VISIT NO . CARDIOLOGY: NEW CHEST PRESSURE NO . NEW CHEST PAIN NO . RESPIRATORY: UNEXPLAINABLE COUGH NO . NEW SHORTNESS OF BREATH NO . VITAL SIGNS WT 227.4 LBS, HT 64 IN, BMI 39.03 INDEX, BP 128/78 MM HG, HR 114 /MIN, RR 18 /MIN, TEMP 97.5 F, OXYGEN SAT % 95%, NA INITIALS AW 1437, REVIEWED BY: EM. EXAMINATION GENERAL EXAMINATION: GENERALNO ACUTE DISTRESS, WELL NOURISHED AND HYDRATED. PSYCHAPPROPRIATE MOOD AND AFFECT . LUNGS:CLEAR TO AUSCULTATION BILATERALLY, NO WHEEZES, RHONCHI, RALES. HEART:NO MURMURS, REGULAR RATE AND RHYTHM. BACK:POINT TENDER BILATERAL THORACIC AND LOW BACK SURROUNDING SKIN SHOWS NO ERYTHEMA, ECCHYMOSIS, INCREASED WARMTH, AND/OR SKIN ERUPTIONS NOTED. BANDS OF RESTRICTED TISSUE NOTED OVER TRIGGER POINTS . ASSESSMENTS OTHER CHRONIC POSTPROCEDURAL PAIN - G89.28 (PRIMARY) MYALGIA, OTHER SITE - M79.18 TREATMENT OTHER CHRONIC POSTPROCEDURAL PAIN PAIN PROCEDURE LOGDATE OF [id number]/7/20PROCEDURE:TRIGGER POINT INJECTION BILAT THORACIC AND LOW BACKAMOUNT OF PRE SEDATE0/0RESULT:PRE-03/01 POST NOTES: 34-YEAR-OLD FEMALE IN FOR POST TPI FOLLOW-UP. GIVEN PRESENTING SYMPTOMS AND RESULTS OF PHYSICAL EXAMINATION RECOMMENDED BILATERAL THORACIC AND LOW BACK TRIGGER POINT INJECTIONS WITH POST PROCEDURAL FOLLOW-UP. PATIENT EXPRESSED UNDERSTANDING OF AND WAS IN AGREEMENT WITH TREATMENT PLAN. GIVEN TIME TO ASK QUESTIONS AND EXPRESS CONCERNS. 1458 REVIEWED INFORMATION ON TRIGGER POINT INJECTIONS PROCEDURE WITH PATIENT. ALSO REVIEWED PRE-PROCEDURE INSTRUCTIONS. PATIENT VERBALIZED AN UNDERSTANDING. José Miguel ARGUELLO RN. CLINICAL NOTES: BILATERAL THORACIC AND LOW BACK TRIGGER POINT INJECTIONS. OTHERS CLINICAL NOTES: 03/27/20 @ 1300 AGUSTINA REY RN BSN. PROCEDURE CODES [id number] ESTABILISHED PATIENT [facility] CHARGE DISPOSITION & COMMUNICATION FOLLOW UP POSTPROCEDURE (REASON: BILATERAL THORACIC AND LOW BACK TRIGGER POINT INJECTIONS) ELECTRONICALLY SIGNED BY MARY JO POTTER ON 04/30/2020 AT 09:41 AM EST DISCLAIMER : THIS IS A VISIT SUMMARY EXTRACTED FROM THE [employer] CHART. IT IS NOT A COPY OF THE [employer] PROGRESS NOTE. GENNA
== END ==
LOC: M PAIN 14:30
PROVIDERS: ATTEND Family Medicine
DX: G89.28 Other chronic postprocedural pain (principal); M79.18 Myalgia, other site; F17.210 Nicotine dependence, cigarettes, uncomplicated; F32.9 Major depressive disorder, single episode, unspecified; F41.9 Anxiety disorder, unspecified; G47.00 Insomnia, unspecified; J45.909 Unspecified asthma, uncomplicated; Z79.899 Other long term (current) drug therapy

== ENCOUNTER → 2020-05-09 | Outpatient (CLI) | payer OTHER | LOC: M LABSMTC 13:56 | PROVIDERS: ATTEND Anesthesiology | DX: Z20.828 Contact with and (suspected) exposure to other viral communicable diseases (principal) ==

== ENCOUNTER → 2020-05-14 | Outpatient (CLI) | payer OTHER ==
[~2020-05-14] MED LIST changes: +BUPIVACAINE HCL 0.25% 10ML VIAL As Ordered ONE; +BUPIVACAINE HCL 0.25% 30ML VIAL As Ordered ONE; +NORCO, ANEXSIA 5/325MG TABLET (HYDROcodone/ACETAMINOPHEN) As Ordered ONE; +TRIAMCINOLONE ACETONIDE SUSP 40 MG/ML VIAL (J3301) As Ordered ONE; +diazePAM 5 MG TAB As Ordered ONE
--- NOTE | 2020-05-24 02:17 | ECWPNPC ---
PATIENT NAME: ASHLEY DANIEL : 1985 GENDER: FEMALE VISIT DATE: 05/14/2020 DISCHARGE DATE: 05/14/20816 VISIT LOCKED DATE TIME: PHYSICIAN: KEVIN POWELL MD RESOURCE: KEVIN POWELL MD REASON FOR APPOINTMENT 1. BILATERAL THORACIC AND LOW BACK TRIGGER POINT INJECTIONS HISTORY OF PRESENT ILLNESS GENERAL: - -. FALL RISK SCREENING: SCREENING :NO FALLS REPORTED IN THE LAST YEAR PAIN SCREENING: PATIENT HAS A COMPLAINT OF ACUTE OR CHRONIC PAIN :YES LOCATION OF PAIN:UPPER BACK, MID BACK, LOW BACK INTENSITY OF PAIN (SCALE OF 1 TO 10):8 WHAT DOES YOUR PAIN FEEL LIKE:ACHING, CONTINOUS, SHARP, STABBING, THROBBING DURATION:CONTINOUS PAIN IS INCREASED BY:ACTIVITIES, PROLONGED STANDING PAIN IS DECREASED BY:USE OF PAIN MEDICATIONS NURSING NOTE: - -. PAIN CENTER INTAKE QUESTIONS: DO YOU HAVE A HISTORY OF MRSA? :NO DO YOU TAKE A BLOOD THINNERS? :NO DO YOU HAVE ANY BLEEDING DISORDERS? :NO ANY NEW NUMBNESS OR WEAKNESS IN YOUR LEGS OR ARMS? :NO ANY PACEMAKER,DEFIBRILLATOR, OR DORSAL COLUMN STIMULATOR? :NO DO YOU HAVE ANY RASHES OR OPEN SORES? :NO ARE YOU ALLERGIC TO IV DYE? :NO ARE YOU DIABETIC? :NO ANY NEW PROBLEMS WITH YOUR MEDICATIONS? :NO HAVE YOU RECEIVED A VACCINE IN THE PAST 30 DAYS? :NO DO YOU PLAN TO RECEIVE A VACCINE IN THE NEXT 21 DAYS? :NO DO YOU TAKE ANY IMMUNOSUPPRESSIVE MEDICATIONS? :NO ANY HISTORY OF SEIZURES? :NO ANY HISTORY OF CARDIAC ISSUES OR EVENTS? :NO DO YOU HAVE SLEEP APNEA? :YES DO YOU WEAR A CPAP?YES ANY RECENT HEAD INJURY? :NO DO YOU HAVE ANY NEW INFECTIONS? :NO IS THERE A CHANCE YOU COULD BE ? :NO ARE YOU BREAST FEEDING? :NO WHEN DID YOU LAST EAT? : -05/13 2300 WHEN DID YOU LAST DRINK? : -05/13 2330 WHAT DID YOU LAST DRINK? : -WATER NAME OF PERSON DRIVING YOU HOME? : -[employer] DO YOU HAVE ANY OTHER QUESTIONS OR CONCERNS? : - CURRENT MEDICATIONS TAKING TRAZODONE HCL 100 MG TABLET 1 TABLET AT BEDTIME NEEDED ORALLY ONCE A DAY, NOTES: ONE IN PAST MONTH TAKING CLARITIN 10 MG TABLET 1 TABLET ORALLY ONCE A DAY, NOTES: 05/13 TAKING BACLOFEN 10 MG TABLET 1 TABLET WITH FOOD OR MILK ORALLY THREE TIMES A DAY, NOTES: 05/13 2300 TAKING SEROQUEL 100 MG TABLET 1 TABLET AT BEDTIME ORALLY ONCE A DAY, NOTES: 05/13 2300 NOT-TAKING IBUPROFEN 800 MG TABLET 1 TABLET WITH FOOD OR MILK NEEDED ORALLY THREE TIMES A DAY NOT-TAKING ESCITALOPRAM OXALATE 20 MG TABLET 0.5 TABLET ORALLY ONCE A DAY, NOTES: [facility] NOT-TAKING HYDROXYZINE HCL 50 MG TABLET 1 TABLET NEEDED ORALLY TID NEEDED, NOTES: [facility] MEDICATION LIST REVIEWED AND RECONCILED WITH THE PATIENT PAST MEDICAL HISTORY DEPRESSION/ANXIETY INSOMNIA ASTHMA ALLERGIES SEASONALE SURGICAL HISTORY TUBAL - 2015 FAMILY HISTORY FATHER: MOTHER: PATERNAL GRAND FATHER: UNKNOWN PATERNAL GRAND MOTHER: UNKNOWN MATERNAL GRAND FATHER: UNKNOWN MATERNAL GRAND MOTHER: UNKNOWN MOTHER - UNKNOWN MEDICAL ISSUES. LOST CONTACT WITH FATHER. SOCIAL HISTORY GENERAL: TOBACCO USE ARE YOU A:CURRENT SMOKER ARE YOU INTERESTED IN QUITTING?NOT READY TO QUIT COUNSELED THE PATIENT ON SMOKING EFFECTS, EDUCATION [id number]/05/2020 HOW MANY CIGARETTES A DAY DO YOU SMOKE?6-10 HOW SOON AFTER YOU WAKE UP DO YOU SMOKE YOUR FIRST CIGARETTE?AFTER 60 MIN HOW OFTEN DO YOU SMOKE CIGARETTES?EVERY DAY PATIENT COUNSELED ON THE DANGERS OF TOBACCO USE AND URGED TO QUIT:03/27/2020 SMOKING CESSATION INFORMATION GIVEN01/03/2020 LATEX QUESTIONNAIRE LATEX ALLERGY : HAVE YOU EVER DEVELOPED ANY TYPE OF REACTION AFTER HANDLING LATEX PRODUCTS SUCH RUBBER GLOVES, CONDOMS, DIAPHRAGMS, BALLOONS, SOCKS, OR UNDERWEAR?NO LATEX ALLERGY : HAVE YOU EVER DEVELOPED ANY TYPE OF REACTION DURING OR AFTER DENTAL APPOINTMENT, VAGINAL/RECTAL EXAMINATION, SURGICAL PROCEDURE, OR ANY OTHER EXPOSURE?NO LATEX RISK : HAVE YOU EVER HAD ANY DIFFICULTY BREATHING OR HIVES AFTER EATING OR HANDLING ANY FRUITS, OR VEGETABLES; SUCH KIWI, BANANAS, STONE FRUITS, OR CHESTNUTSNO LATEX RISK : DO YOU HAVE A PREVIOUS PERSONAL HISTORY OF MORE THAN NINE SURGERIES, SPINA BIFIDA, OR REPEATED CATHERIZATIONS? NO LATEX RISK : ARE YOU FREQUENTLY EXPOSED TO LATEX PRODUCTS IN YOUR OCCUPATION?NO DATE ASKED : 05/14/2020 ALCOHOL SCREENING DID YOU HAVE A DRINK CONTAINING ALCOHOL IN THE PAST YEAR?NO POINTS0 INTERPRETATIONNEGATIVE RECREATIONAL DRUG USE DRUG USE?NO CAFFEINE CAFFEINE USE?YES 2 SODAS DAILY SEXUAL HX HAD SEX IN THE LAST 12 MONTHS (VAGINAL, ORAL, OR ANAL)?YES WITHMEN ONLY PREVENTION STRATEGIES DISCUSSED:OTHER USE PROTECTION?YES HOW OFTEN?SOME OF THE TIME LMP:09/07/17 HAVE YOU EVER HAD AN STD?NO HIV / HEP-C SCREENING HIV TEST OFFERED TO PATIENT:YES DATE OFFERED:09/25/2017 TEST ACCEPTED:YES BROCHURE PROVIDED TO PATIENTYES [facility] [id number] NONE LANGUAGE LANGUAGES SPOKEN:[place] EDUCATION LEVEL OF EDUCATION:HIGH SCHOOL LEARNING BARRIERS / SPECIAL NEEDS HEARING IMPAIRED?NO VISION IMPAIRED?YES :CORRECTIVE LENSES COGNITIVELY IMPAIRED?YES :MENTAL RETARDATION READINESS TO LEARN?YES LEARNING PREFERENCES?YES LEARNING CAPABILITIES PRESENT?YES EMOTIONAL BARRIERS?NO SPECIAL DEVICES?NO BRAIDING MACHINE OPERATOR NEEDED?NO DOMESTIC VIOLENCE STATUS:SINGLE DO YOU FEEL SAFE IN YOUR ENVIRONMENT?YES 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 OTHERS AT HOME: EX PARTNER, NOW ROOM MATES. PAIN CLINIC PFS, CLERGY, PUBLIC HEALTH REFERRALS PFS REFERRAL NEEDED?NO CLERGY REFERRAL NEEDED?NO PUBLIC HEALTH REFERRAL NEEDED?NO WAS THE PROVIDER NOTIFIED OF ANY PERTINENT INFO?YES HAS THE PATIENT BEEN EDUCATED REGARDING HIS/HER PLAN OF CARE?YES HAS THE PATIENT BEEN EDUCATED REGARDING PAIN, THE RISK FOR PAIN, THE IMPORTANCE OF EFFECTIVE PAIN MANAGEMENT, AND THE PAIN ASSESSMENT PROCESS?YES ADVANCE DIRECTIVE ADVANCE DIRECTIVE DISCUSSED WITH PATIENT:YES DOES NOT HAVE ADVANCED DIRECTIVES AND DOES NOT NEED INFORMATION HOSPITALIZATION/MAJOR DIAGNOSTIC PROCEDURE NO HOSPITALIZATION HISTORY. VITAL SIGNS WT 227.8 LBS, HT 64 IN, BMI 39.10 INDEX, BP 137/91 MM HG, HR 114 /MIN, RR 18 /MIN, TEMP 98.1 F, OXYGEN SAT % 99%, SAFE IN ENV? (Y/N) YES, NA INITIALS AW 1433, REVIEWED BY: STACY RN @ 1614. EXAMINATION GENERAL EXAMINATION: THE PATIENT IS ALERT, ORIENTED TIMES THREE AND COOPERATIVE. HEART SHOWS REGULAR RHYTHM, NO MURMURS AND NO GALLOPS. LUNGS ARE CLEAR TO AUSCULTATION. ASSESSMENTS MYALGIA, OTHER SITE - M79.18 (PRIMARY) TREATMENT MYALGIA, OTHER SITE MEDICATION: NORCO TABLET 5MG/325MG ORALLY (HYDROCODONE/ACETAMINOPHEN)MAHNAZ WEATHERS 05/14/2020 3:34:32 PM > VERIFIED LOT # [id number] EXP 08/2021 YVONNE MARTINEZ 05/14/2020 3:36:22 PM > NORCO VERIFIED. YVONNE MARTINEZ 05/14/2020 3:38:29 PM > NORCO ADMINISTERED 1538 MEDICATION: VALIUM TAB 5MG ORALLY (DIAZEPAM)MAHNAZ WEATHERS 05/14/2020 3:35:06 PM > VERIFIED LOT # [id number] EXP. 12/2020 YVONNE MARTINEZ 05/14/2020 3:36:47 PM > VALIUM VERIFIED YVONNE MARTINEZ 05/14/2020 3:39:15 PM > VALIUM ADMINISTERED 1538 NOTES: DISCHARGE INSTRUCTIONS REVIEWED WITH PATIENT AND SHE VERBALIZED UNDERTANDING OF DISCHARGE INSTRUCTIONS. . PROCEDURES PAIN NURSING RECORD PRE-PROCEDURE IV SITE N/A, PRE-PROCEDURE ORAL MEDICATIONS PER MD ORDER PROCEDURE IN ROOM 1425, PHYSICIAN IN ROOM 1608, START 1611, FINISH 1614, PHYSICIAN OUT OF ROOM 1615, OUT OF ROOM 1628, STEROID KENALOG, O2 RA, ECG N/A, PATIENT SHIELDED NO, SAFETY STRAP NO, PREP ALCOHOL BY DR POWELL, IV INFUSED N/A, DRESSING TEGADERM BY Meghana MARTINEZ RN LOC: 1. ALERT, ORIENTED RESP: 1. REGULAR, NO DYSPNEA COLOR: 1. PINK SKIN: 1. WARM, DRY POSITION: 1. PRONE VITALS: YVONNE MARTINEZ 05/14/2020 4:19:41 PM > 119/75 HR 106 16 99% D/C V/S. DISCHARGE: POST PAIN 6, DRESSING SITE DRY AND INTACT, IV N/A, GAIT STEADY, TEACHING COMPLETED, PATIENT ACKNOWLEDGES UNDERSTANDING YES, PATIENT DISCHARGED AT 1628 PN TRIGGER POINT INJECTION WITH STEROIDS PRE PROCEDURE DIAGNOSIS 1. MYALGIA 2. PAIN AT BILATERAL THORACIC AREA AND BILATERAL LOWER BACK AREA POST PROCEDURE DIAGNOSIS 1. MYALGIA 2. PAIN AT BILATERAL THORACIC AREA AND BILATERAL LOWER BACK AREA PROCEDURE TRIGGER POINT INJECTION AT BILATERAL THORACIC AREA AND BILATERAL LOWER BACK AREA SURGEON DR. KEVIN POWELL INSPECTOR CANNED FOOD RECONDITIONING NONE ANESTHESIA LOCAL PRE PROCEDURE NOTE THE PATIENT HAS A HISTORY OF CHRONIC PAIN AT THE RIGHT AND LEFT THORACIC AREA AND RIGHT AND LEFT LOWER BACK AREA. I EVALUATED THE PATIENT AND REVIEWED THE CHART. THERE IS EVIDENCE OF BANDS OF TISSUE WITH RESTRICTION OF MOVEMENT AND PRESENCE OF TRIGGER POINT AT THE RIGHT AND LEFT THORACIC AREA AND RIGHT AND LEFT LOWER BACK AREA. I WENT OVER THE RISKS, ALTERNATIVES, AND BENEFITS ASSOCIATED WITH THIS PROCEDURE. I DISCUSSED THAT THE USE OF STEROIDS MAY CONTRIBUTE TO IMMUNOSUPPRESSION OF THE PATIENT'S BODY AGAINST INFECTIONS SUCH COVID-19. THE PATIENT IS AWARE OF THE POTENTIAL COMPLICATIONS ASSOCIATED WITH THIS VIRUS, INCLUDING, BUT NOT LIMITED TO, . THE PATIENT WOULD LIKE TO PROCEED AND GIVE CONSENT TO PERFORMED THE PROCEDURE. THE PATIENT DENIES UNEXPLAINABLE WEIGHT LOSS, FEVER, CHILLS, OR NEW CHANGES IN URINARY OR BOWEL CONTROL. THE PATIENT IS COVID-19 NEGATIVE DESCRIPTION OF PROCEDURE THE PATIENT WAS BROUGHT TO THE PROCEDURE ROOM AND PLACED IN THE SITTING POSITION. THE AREA WAS CLEANED WITH ALCOHOL. THE PROCEDURE WAS DONE USING ASEPTIC STERILE TECHNIQUE. A TIMEOUT WAS PERFORMED WHERE LATERALITY AND THE SITE OF THE PROCEDURE WERE CHECKED AND CONFIRMED WITH EVERYONE IN THE ROOM. USING A 25-GAUGE NEEDLE, TRIGGER POINTS WERE INJECTED AT THE RIGHT AND LEFT THORACIC AREA AND RIGHT AND LEFT LOWER BACK AREA WITH A TOTAL OF 40 ML OF BUPIVACAINE 0.25% AND KENALOG 40 MG. THE MEDICATIONS WERE VERIFIED WITH THE NURSE. THERE WAS NO EVIDENCE OF BLOOD OR PARESTHESIA DURING THE PROCEDURE. THE PATIENT WAS SENT TO THE RECOVERY ROOM. THE PATIENT WAS MOVING THE EXTREMITIES AND DOING WELL. THERE WERE NO COMPLICATIONS DURING THE PROCEDURE. ESTIMATED BLOOD LOSS WAS LESS THAN 5 ML POST PROCEDURE NOTE DEPENDING ON THE RESULTS, WE SHOULD CONSIDER WORKING OVER HER FACETS IN HER LOWER BACK. THE PROCEDURE DONE WAS DISCUSSED WITH THE PATIENT. THE PATIENT WILL BE SEEN IN A FOLLOW UP IN THE NEXT FEW WEEKS. I AM LOOKING FOR LONG LASTING PAIN RELIEF FOR THE PATIENT WITH THIS INTERVENTION. INSTRUCTIONS WERE GIVEN, QUESTIONS WERE ANSWERED, AND THE PATIENT EXPRESSED UNDERSTANDING AND AGREES WITH THE PLAN. I, MANDI MENA, DOCUMENTED THE ABOVE INFORMATION ACTING A SCRIBE FOR DR. POWELL. I HAVE REVIEWED THE ABOVE DOCUMENT, WRITTEN BY MANDI MENA, STRAIGHTENER AND ALIGNER, AND I VERIFY THAT IT IS ACCURATE PROCEDURE CODES 98311 INJECT TRIGGER POINTS 3/> DISPOSITION & COMMUNICATION FOLLOW UP FOLLOW UP WITH SHEET METAL DUCT INSTALLER (REASON: POST TPI BILATERAL THORACIC AND LOWER BACK AREA) ELECTRONICALLY SIGNED BY KEVIN POWELL MD, MD ON 05/23/2020 AT 09:21 AM EST DISCLAIMER : THIS IS A VISIT SUMMARY EXTRACTED FROM THE [employer] CHART. IT IS NOT A COPY OF THE [employer] PROGRESS NOTE. GENNA
== END ==
LOC: M PAIN 14:30
PROVIDERS: ATTEND Anesthesiology
DX: M79.18 Myalgia, other site (principal); F32.9 Major depressive disorder, single episode, unspecified; F41.9 Anxiety disorder, unspecified; G47.00 Insomnia, unspecified; J45.909 Unspecified asthma, uncomplicated; F17.210 Nicotine dependence, cigarettes, uncomplicated; Z79.899 Other long term (current) drug therapy
CPT/HCPCS: 20553; J3301

== ENCOUNTER → 2020-05-29 | Outpatient (CLI) | payer OTHER ==
[~2020-05-29] MED LIST changes: -BUPIVACAINE HCL 0.25% 10ML VIAL As Ordered ONE; -BUPIVACAINE HCL 0.25% 30ML VIAL As Ordered ONE; -NORCO, ANEXSIA 5/325MG TABLET (HYDROcodone/ACETAMINOPHEN) As Ordered ONE; -TRIAMCINOLONE ACETONIDE SUSP 40 MG/ML VIAL (J3301) As Ordered ONE; -diazePAM 5 MG TAB As Ordered ONE
--- NOTE | 2020-05-31 00:41 | ECWPNPC ---
PATIENT NAME: ASHLEY DANIEL : 1985 GENDER: FEMALE VISIT DATE: 05/29/2020 DISCHARGE DATE: 05/29/20 1449 VISIT LOCKED DATE TIME: PHYSICIAN: JOHNIE MARTÍNEZ RESOURCE: JOHNIE MARTÍNEZ REASON FOR APPOINTMENT 1. POST BILATERAL THORACIC AND LOW BACK TRIGGER POINT INJECTIONS HISTORY OF PRESENT ILLNESS GENERAL: 34-YEAR-OLD FEMALE IN FOR POST THORACIC AND LOW BACK TRIGGER POINT INJECTION FOLLOW-UP. PATIENT FEELS THE PROCEDURE WAS INEFFECTIVE. SHE RATES HER PAIN CURRENTLY AT A 9 OUT OF 10 AND DESCRIBES IT ACHING, AND THROBBING. FALL RISK SCREENING: SCREENING :NO FALLS REPORTED IN THE LAST YEAR PAIN SCREENING: PATIENT HAS A COMPLAINT OF ACUTE OR CHRONIC PAIN :YES LOCATION OF PAIN:MID BACK, LOW BACK INTENSITY OF PAIN (SCALE OF 1 TO 10):9 WHAT DOES YOUR PAIN FEEL LIKE:ACHING, THROBBING DURATION:CONTINOUS, CONSTANT PAIN IS INCREASED BY:ACTIVITIES PAIN IS DECREASED BY:USE OF PAIN MEDICATIONS TREATMENT/MEDICATIONS USED TO MANAGE PAIN:OPIOIDS LEVEL OF RELIEF FROM PAIN TREATMENTS IN THE PAST:25% PAIN HAS INTERFERED WITH THE FOLLOWING:BATHING/DRESSING, WALKING ABILITY, HOUSEWORK, TRANSPORTATION, TOILETING NURSING NOTE: -. PAIN CENTER INTAKE QUESTIONS: DO YOU HAVE A HISTORY OF MRSA? :NO DO YOU TAKE A BLOOD THINNERS? :NO DO YOU HAVE ANY BLEEDING DISORDERS? :NO ANY NEW NUMBNESS OR WEAKNESS IN YOUR LEGS OR ARMS? :NO ANY PACEMAKER,DEFIBRILLATOR, OR DORSAL COLUMN STIMULATOR? :NO DO YOU HAVE ANY RASHES OR OPEN SORES? :NO ARE YOU ALLERGIC TO IV DYE? :NO ARE YOU DIABETIC? :NO ANY NEW PROBLEMS WITH YOUR MEDICATIONS? :NO HAVE YOU RECEIVED A VACCINE IN THE PAST 30 DAYS? :NO DO YOU PLAN TO RECEIVE A VACCINE IN THE NEXT 21 DAYS? :NO DO YOU NEED ANY PRESCRIPTION? :NO DO YOU TAKE ANY IMMUNOSUPPRESSIVE MEDICATIONS? :NO IS THERE A CHANCE YOU COULD BE ? :NO ARE YOU BREAST FEEDING? :NO CURRENT MEDICATIONS TAKING TRAZODONE HCL 100 MG TABLET 1 TABLET AT BEDTIME NEEDED ORALLY ONCE A DAY TAKING CLARITIN 10 MG TABLET 1 TABLET ORALLY ONCE A DAY TAKING BACLOFEN 10 MG TABLET 1 TABLET WITH FOOD OR MILK ORALLY THREE TIMES A DAY TAKING SEROQUEL 100 MG TABLET 1 TABLET AT BEDTIME ORALLY ONCE A DAY NOT-TAKING IBUPROFEN 800 MG TABLET 1 TABLET WITH FOOD OR MILK NEEDED ORALLY THREE TIMES A DAY NOT-TAKING ESCITALOPRAM OXALATE 20 MG TABLET 0.5 TABLET ORALLY ONCE A DAY, NOTES: [facility] NOT-TAKING HYDROXYZINE HCL 50 MG TABLET 1 TABLET NEEDED ORALLY TID NEEDED, NOTES: [facility] MEDICATION LIST REVIEWED AND RECONCILED WITH THE PATIENT PAST MEDICAL HISTORY DEPRESSION/ANXIETY INSOMNIA ASTHMA ALLERGIES SEASONALE SURGICAL HISTORY TUBAL - 2015 FAMILY HISTORY FATHER: MOTHER: PATERNAL GRAND FATHER: UNKNOWN PATERNAL GRAND MOTHER: UNKNOWN MATERNAL GRAND FATHER: UNKNOWN MATERNAL GRAND MOTHER: UNKNOWN MOTHER - UNKNOWN MEDICAL ISSUES. LOST CONTACT WITH FATHER. SOCIAL HISTORY GENERAL: TOBACCO USE ARE YOU A:CURRENT SMOKER ARE YOU INTERESTED IN QUITTING?NOT READY TO QUIT COUNSELED THE PATIENT ON SMOKING EFFECTS, EDUCATION [id number]/08/2020 HOW MANY CIGARETTES A DAY DO YOU SMOKE?6-10 HOW SOON AFTER YOU WAKE UP DO YOU SMOKE YOUR FIRST CIGARETTE?AFTER 60 MIN HOW OFTEN DO YOU SMOKE CIGARETTES?EVERY DAY PATIENT COUNSELED ON THE DANGERS OF TOBACCO USE AND URGED TO QUIT:03/27/2020 SMOKING CESSATION INFORMATION GIVEN01/03/2020 LATEX QUESTIONNAIRE LATEX ALLERGY : HAVE YOU EVER DEVELOPED ANY TYPE OF REACTION AFTER HANDLING LATEX PRODUCTS SUCH RUBBER GLOVES, CONDOMS, DIAPHRAGMS, BALLOONS, SOCKS, OR UNDERWEAR?NO LATEX ALLERGY : HAVE YOU EVER DEVELOPED ANY TYPE OF REACTION DURING OR AFTER DENTAL APPOINTMENT, VAGINAL/RECTAL EXAMINATION, SURGICAL PROCEDURE, OR ANY OTHER EXPOSURE?NO DATE ASKED : 05/14/2020 LATEX RISK : HAVE YOU EVER HAD ANY DIFFICULTY BREATHING OR HIVES AFTER EATING OR HANDLING ANY FRUITS, OR VEGETABLES; SUCH KIWI, BANANAS, STONE FRUITS, OR CHESTNUTSNO LATEX RISK : DO YOU HAVE A PREVIOUS PERSONAL HISTORY OF MORE THAN NINE SURGERIES, SPINA BIFIDA, OR REPEATED CATHERIZATIONS? NO LATEX RISK : ARE YOU FREQUENTLY EXPOSED TO LATEX PRODUCTS IN YOUR OCCUPATION?NO ALCOHOL SCREENING DID YOU HAVE A DRINK CONTAINING ALCOHOL IN THE PAST YEAR?NO POINTS0 INTERPRETATIONNEGATIVE RECREATIONAL DRUG USE DRUG USE?NO CAFFEINE CAFFEINE USE?YES 2 SODAS DAILY SEXUAL HX HAD SEX IN THE LAST 12 MONTHS (VAGINAL, ORAL, OR ANAL)?YES WITHMEN ONLY PREVENTION STRATEGIES DISCUSSED:OTHER USE PROTECTION?YES HOW OFTEN?SOME OF THE TIME LMP:09/07/17 HAVE YOU EVER HAD AN STD?NO HIV / HEP-C SCREENING HIV TEST OFFERED TO PATIENT:YES DATE OFFERED:09/25/2017 TEST ACCEPTED:YES BROCHURE PROVIDED TO PATIENTYES [employer] [id number] NONE LANGUAGE LANGUAGES SPOKEN:UGANDAN EDUCATION LEVEL OF EDUCATION:HIGH SCHOOL LEARNING BARRIERS / SPECIAL NEEDS HEARING IMPAIRED?NO VISION IMPAIRED?YES COGNITIVELY IMPAIRED?YES :CORRECTIVE LENSES :MENTAL RETARDATION READINESS TO LEARN?YES LEARNING PREFERENCES?YES LEARNING CAPABILITIES PRESENT?YES EMOTIONAL BARRIERS?NO SPECIAL DEVICES?NO FOOD CRITIC NEEDED?NO DOMESTIC VIOLENCE STATUS:SINGLE DO YOU FEEL SAFE IN YOUR ENVIRONMENT?YES 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 OTHERS AT HOME: EX PARTNER, NOW ROOM MATES. PAIN CLINIC PFS, CLERGY, PUBLIC HEALTH REFERRALS PFS REFERRAL NEEDED?NO CLERGY REFERRAL NEEDED?NO PUBLIC HEALTH REFERRAL NEEDED?NO WAS THE PROVIDER NOTIFIED OF ANY PERTINENT INFO?YES HAS THE PATIENT BEEN EDUCATED REGARDING HIS/HER PLAN OF CARE?YES HAS THE PATIENT BEEN EDUCATED REGARDING PAIN, THE RISK FOR PAIN, THE IMPORTANCE OF EFFECTIVE PAIN MANAGEMENT, AND THE PAIN ASSESSMENT PROCESS?YES ADVANCE DIRECTIVE ADVANCE DIRECTIVE DISCUSSED WITH PATIENT:YES DOES NOT HAVE ADVANCED DIRECTIVES AND DOES NOT NEED INFORMATION HOSPITALIZATION/MAJOR DIAGNOSTIC PROCEDURE NO HOSPITALIZATION HISTORY. REVIEW OF SYSTEMS CONSTITUTIONAL: ANY RECENT FEVER NO . CHILLS NO . WEIGHT CHANGE OF UNKNOWN REASONS NO . GASTROENTEROLOGY: NEW UNEXPLAINABLE CHANGES IN BOWEL CONTROL NO . CONSTIPATION NO . GENITOURINARY: ANY NEW CHANGE IN BLADDER CONTROL? NO . NEUROLOGY: NEW ONSET DIZZINESS OR NEUROLOGICAL CHANGES NOT MENTIONED NO . NEW NUMBNESS OR PAIN PATTERNS NOT MENTIONED AND PERTINENT TO TODAY'S VISIT NO . CARDIOLOGY: NEW CHEST PRESSURE NO . NEW CHEST PAIN NO . RESPIRATORY: UNEXPLAINABLE COUGH NO . NEW SHORTNESS OF BREATH NO . VITAL SIGNS WT 230.8 LBS, HT 64 IN, BMI 39.61 INDEX, BP 146/93 MM HG, HR 98 /MIN, RR 16 /MIN, TEMP 97.8 F, OXYGEN SAT % 99%, SAFE IN ENV? (Y/N) Y, NA INITIALS OK 14:21, REVIEWED BY: EM. EXAMINATION GENERAL EXAMINATION: GENERALNO ACUTE DISTRESS, WELL NOURISHED AND HYDRATED. PSYCHAPPROPRIATE MOOD AND AFFECT . LUNGS:CLEAR TO AUSCULTATION BILATERALLY, NO WHEEZES, RHONCHI, RALES. HEART:NO MURMURS, REGULAR RATE AND RHYTHM. ASSESSMENTS OTHER CHRONIC PAIN - G89.29 (PRIMARY) TREATMENT OTHER CHRONIC PAIN PAIN PROCEDURE LOGDATE OF [id number]/23/20PROCEDURE:TRIGGER POINT INJECTION BILATERAL THORACIC AND LOW BACKAMOUNT OF PRE SEDATENORCO 5/325, VALIUM 5MGRESULT:INEFFECTIVE THIS PROCEDURE WAS REVIEWED BY MINE REY ON 05/30/2020 AT 16:07 PM EST NOTES: 4-YEAR-OLD FEMALE IN FOR POST TRIGGER POINT INJECTION FOLLOW-UP. GIVEN PRESENTING SYMPTOMS RECOMMEND INCREASING BACLOFEN TO 20 MG 3 TIMES A DAY WITH FOLLOW-UP IN ONE MONTH TO DETERMINE EFFICACY OF TREATMENT. PATIENT HAS EXPRESSED UNDER STANDING OF AND WAS IN AGREEMENT WITH TREATMENT PLAN. GIVEN TIME TO ASK QUESTIONS AND EXPRESS CONCERNS. OTHERS INCREASE BACLOFEN TABLET, 20 MG, 1 TABLET WITH FOOD OR MILK, ORALLY, THREE TIMES A DAY, 30 DAY(S), 90 PROCEDURE CODES [id number] ESTABILISHED PATIENT [facility] FACILITY CHARGE DISPOSITION & COMMUNICATION FOLLOW UP 4 WEEKS (REASON: MEDICINE INCREASE ) ELECTRONICALLY SIGNED BY MARY JO POTTER ON 05/30/2020 AT 09:23 AM EST DISCLAIMER : THIS IS A VISIT SUMMARY EXTRACTED FROM THE [employer] CHART. IT IS NOT A COPY OF THE [employer] PROGRESS NOTE. GENNA
== END ==
LOC: M PAIN 14:15
PROVIDERS: ATTEND Family Medicine
DX: G89.29 Other chronic pain (principal); F32.9 Major depressive disorder, single episode, unspecified; F41.9 Anxiety disorder, unspecified; G47.00 Insomnia, unspecified; J45.909 Unspecified asthma, uncomplicated; F17.210 Nicotine dependence, cigarettes, uncomplicated; Z79.899 Other long term (current) drug therapy

== ENCOUNTER → 2020-07-02 | Outpatient (CLI) | payer OTHER ==
[~2020-07-02] MED LIST changes: +ESCI10TA16 PO; -ESCI10TA2 PO
--- NOTE | 2020-07-05 00:56 | ECWPNPC ---
PATIENT NAME: ASHLEY DANIEL : 1985 GENDER: FEMALE VISIT DATE: 07/02/2020 DISCHARGE DATE: 07/02/20 1518 VISIT LOCKED DATE TIME: PHYSICIAN: JOHNIE MARTÍNEZ PHYSICIAN PAGER NO: INACTIVE RESOURCE: JOHNIE MARTÍNEZ REASON FOR APPOINTMENT 1. MEDICAL INCREASE HISTORY OF PRESENT ILLNESS DEPRESSION SCREENING: PHQ-2 (2015 EDITION) LITTLE INTEREST OR PLEASURE IN DOING THINGS?NOT AT ALL FEELING DOWN, DEPRESSED, OR HOPELESS?NOT AT ALL TOTAL SCORE0 34-YEAR-OLD FEMALE IN FOR CHRONIC PAIN FOLLOW-UP. AT LAST CLINIC VISIT PATIENT'S BACLOFEN WAS INCREASED AND SHE ADMITS TODAY THAT THIS HAS BEEN BENEFICIAL. SHE RATES HER PAIN CURRENTLY AT A 9 OUT OF 10 AVERAGE IN AROUND A 6 OUT OF 10. SHE DESCRIBES HER PAIN ACHING, SHARP, AND STABBING. PATIENT DOES ADMIT TO INCREASED PAIN AND NEW ONSET OF RADICULAR SYMPTOMS. GENERAL: -. FALL RISK SCREENING: SCREENING :NO FALLS REPORTED IN THE LAST YEAR PAIN SCREENING: PATIENT HAS A COMPLAINT OF ACUTE OR CHRONIC PAIN :YES LOCATION OF PAIN:UPPER BACK, MID BACK, LOW BACK, LEG(S) INTENSITY OF PAIN (SCALE OF 1 TO 10):9 AVERAGE 6 WHAT DOES YOUR PAIN FEEL LIKE:ACHING, SHARP, STABBING DURATION:CONTINOUS, CONSTANT, AWAKENS FROM SLEEP PAIN IS INCREASED BY:ACTIVITIES, OTHERS WALKING PAIN IS DECREASED BY:USE OF PAIN MEDICATIONS, OTHERS LAYING DOWN OR SITTING TREATMENT/MEDICATIONS USED TO MANAGE PAIN:OTC PAIN RELIEVERS, NSAIDS, PHYSICAL THERAPY NURSING NOTE: -. PAIN CENTER INTAKE QUESTIONS: DO YOU HAVE A HISTORY OF MRSA? :NO DO YOU TAKE A BLOOD THINNERS? :NO DO YOU HAVE ANY BLEEDING DISORDERS? :NO ANY NEW NUMBNESS OR WEAKNESS IN YOUR LEGS OR ARMS? :NO ANY PACEMAKER,DEFIBRILLATOR, OR DORSAL COLUMN STIMULATOR? :NO DO YOU HAVE ANY RASHES OR OPEN SORES? :NO ARE YOU ALLERGIC TO IV DYE? :NO ARE YOU DIABETIC? :NO ANY NEW PROBLEMS WITH YOUR MEDICATIONS? :NO HAVE YOU RECEIVED A VACCINE IN THE PAST 30 DAYS? :NO DO YOU PLAN TO RECEIVE A VACCINE IN THE NEXT 21 DAYS? :NO DO YOU NEED ANY PRESCRIPTION? :YES BACLOFEN DO YOU TAKE ANY IMMUNOSUPPRESSIVE MEDICATIONS? :NO IS THERE A CHANCE YOU COULD BE ? :NO ARE YOU BREAST FEEDING? :NO CURRENT MEDICATIONS TAKING TRAZODONE HCL 100 MG TABLET 1 TABLET AT BEDTIME NEEDED ORALLY ONCE A DAY TAKING CLARITIN 10 MG TABLET 1 TABLET ORALLY ONCE A DAY TAKING SEROQUEL 100 MG TABLET 1 TABLET AT BEDTIME ORALLY ONCE A DAY TAKING BACLOFEN 20 MG TABLET 1 TABLET WITH FOOD OR MILK ORALLY THREE TIMES A DAY NOT-TAKING IBUPROFEN 800 MG TABLET 1 TABLET WITH FOOD OR MILK NEEDED ORALLY THREE TIMES A DAY NOT-TAKING ESCITALOPRAM OXALATE 20 MG TABLET 0.5 TABLET ORALLY ONCE A DAY, NOTES: [facility] ER NOT-TAKING HYDROXYZINE HCL 50 MG TABLET 1 TABLET NEEDED ORALLY TID NEEDED, NOTES: [facility] ER MEDICATION LIST REVIEWED AND RECONCILED WITH THE PATIENT PAST MEDICAL HISTORY DEPRESSION/ANXIETY INSOMNIA ASTHMA ALLERGIES SEASONALE SURGICAL HISTORY TUBAL - 2015 FAMILY HISTORY FATHER: MOTHER: PATERNAL GRAND FATHER: UNKNOWN PATERNAL GRAND MOTHER: UNKNOWN MATERNAL GRAND FATHER: UNKNOWN MATERNAL GRAND MOTHER: UNKNOWN MOTHER - UNKNOWN MEDICAL ISSUES. LOST CONTACT WITH FATHER. SOCIAL HISTORY GENERAL: TOBACCO USE ARE YOU A:CURRENT SMOKER HOW OFTEN DO YOU SMOKE CIGARETTES?EVERY DAY HOW SOON AFTER YOU WAKE UP DO YOU SMOKE YOUR FIRST CIGARETTE?AFTER 60 MIN HOW MANY CIGARETTES A DAY DO YOU SMOKE?6-10 ARE YOU INTERESTED IN QUITTING?NOT READY TO QUIT PATIENT COUNSELED ON THE DANGERS OF TOBACCO USE AND URGED TO QUIT:03/27/2020 COUNSELED THE PATIENT ON SMOKING EFFECTS, EDUCATION [id number]/08/2020 SMOKING CESSATION INFORMATION GIVEN01/03/2020 LATEX QUESTIONNAIRE LATEX ALLERGY : HAVE YOU EVER DEVELOPED ANY TYPE OF REACTION AFTER HANDLING LATEX PRODUCTS SUCH RUBBER GLOVES, CONDOMS, DIAPHRAGMS, BALLOONS, SOCKS, OR UNDERWEAR?NO LATEX ALLERGY : HAVE YOU EVER DEVELOPED ANY TYPE OF REACTION DURING OR AFTER DENTAL APPOINTMENT, VAGINAL/RECTAL EXAMINATION, SURGICAL PROCEDURE, OR ANY OTHER EXPOSURE?NO LATEX RISK : HAVE YOU EVER HAD ANY DIFFICULTY BREATHING OR HIVES AFTER EATING OR HANDLING ANY FRUITS, OR VEGETABLES; SUCH KIWI, BANANAS, STONE FRUITS, OR CHESTNUTSNO LATEX RISK : DO YOU HAVE A PREVIOUS PERSONAL HISTORY OF MORE THAN NINE SURGERIES, SPINA BIFIDA, OR REPEATED CATHERIZATIONS? NO LATEX RISK : ARE YOU FREQUENTLY EXPOSED TO LATEX PRODUCTS IN YOUR OCCUPATION?NO DATE ASKED : 07/02/2020 ALCOHOL SCREENING DID YOU HAVE A DRINK CONTAINING ALCOHOL IN THE PAST YEAR?NO POINTS0 INTERPRETATIONNEGATIVE RECREATIONAL DRUG USE DRUG USE?NO CAFFEINE CAFFEINE USE?YES 2 SODAS DAILY SEXUAL HX HAD SEX IN THE LAST 12 MONTHS (VAGINAL, ORAL, OR ANAL)?YES WITHMEN ONLY PREVENTION STRATEGIES DISCUSSED:OTHER USE PROTECTION?YES HOW OFTEN?SOME OF THE TIME LMP:09/07/17 HAVE YOU EVER HAD AN STD?NO HIV / HEP-C SCREENING HIV TEST OFFERED TO PATIENT:YES DATE OFFERED:09/25/2017 TEST ACCEPTED:YES BROCHURE PROVIDED TO PATIENTYES RESTORATION [id number] NONE LANGUAGE LANGUAGES SPOKEN:OCCITAN EDUCATION LEVEL OF EDUCATION:HIGH SCHOOL LEARNING BARRIERS / SPECIAL NEEDS BARRIERS TO LEARNING?YES HAS DIFFICULTY WITH COMPREHENSION PER PATIENT. 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 OTHERS AT HOME: EX PARTNER, NOW ROOM MATES. PAIN CLINIC PFS, CLERGY, PUBLIC HEALTH REFERRALS PFS REFERRAL NEEDED?NO CLERGY REFERRAL NEEDED?NO PUBLIC HEALTH REFERRAL NEEDED?NO WAS THE PROVIDER NOTIFIED OF ANY PERTINENT INFO?YES HAS THE PATIENT BEEN EDUCATED REGARDING HIS/HER PLAN OF CARE?YES HAS THE PATIENT BEEN EDUCATED REGARDING PAIN, THE RISK FOR PAIN, THE IMPORTANCE OF EFFECTIVE PAIN MANAGEMENT, AND THE PAIN ASSESSMENT PROCESS?YES ADVANCE DIRECTIVE ADVANCE DIRECTIVE DISCUSSED WITH PATIENT:YES DOES NOT HAVE ADVANCED DIRECTIVES AT THIS TIME. PATIENT GIVEN INFORMATION AND PATIENT WILL TAKE HOME TO REVIEW. HOSPITALIZATION/MAJOR DIAGNOSTIC PROCEDURE NO HOSPITALIZATION HISTORY. REVIEW OF SYSTEMS CONSTITUTIONAL: ANY RECENT FEVER NO . CHILLS NO . WEIGHT CHANGE OF UNKNOWN REASONS NO . GASTROENTEROLOGY: NEW UNEXPLAINABLE CHANGES IN BOWEL CONTROL NO . CONSTIPATION NO . GENITOURINARY: ANY NEW CHANGE IN BLADDER CONTROL? NO . NEUROLOGY: NEW ONSET DIZZINESS OR NEUROLOGICAL CHANGES NOT MENTIONED NO . NEW NUMBNESS OR PAIN PATTERNS NOT MENTIONED AND PERTINENT TO TODAY'S VISIT NO . CARDIOLOGY: NEW CHEST PRESSURE NO . NEW CHEST PAIN NO . RESPIRATORY: UNEXPLAINABLE COUGH NO . NEW SHORTNESS OF BREATH NO . VITAL SIGNS WT 234.8 LBS, HT 64 IN, BMI 40.30 INDEX, BP 126/74 MM HG, HR 105 /MIN, RR 18 /MIN, TEMP 98.8 F, OXYGEN SAT % 96%, SAFE IN ENV? (Y/N) YES, NA INITIALS JS 1400, REVIEWED BY: OPAL OQUENDO MA. EXAMINATION GENERAL EXAMINATION: GENERALNO ACUTE DISTRESS, WELL NOURISHED AND HYDRATED. PSYCHAPPROPRIATE MOOD AND AFFECT . LUNGS:CLEAR TO AUSCULTATION BILATERALLY, NO WHEEZES, RHONCHI, RALES. HEART:NO MURMURS, REGULAR RATE AND RHYTHM. BACK:POINT TENDER BILATERAL THORACIC AND LOW BACK , SURROUNDING SKIN SHOWS NO ERYTHEMA, ECCHYMOSIS, INCREASED WARMTH, AND/OR SKIN ERUPTIONS NOTED. BANDS OF RESTRICTIVE TISSUE NOTED OVER TRIGGER POINTS . ASSESSMENTS MYALGIA, OTHER SITE - M79.18 (PRIMARY) DORSALGIA - M54.9 TREATMENT MYALGIA, OTHER SITE NOTES: 34-YEAR-OLD FEMALE IN FOR CHRONIC PAIN FOLLOW-UP. GIVEN PRESENTING SYMPTOMS AND RESULTS OF PHYSICAL EXAMINATION RECOMMEND BILATERAL THORACIC AND LOW BACK TRIGGER POINT INJECTIONS WITH POST PROCEDURAL FOLLOW-UP. FURTHER RECOMMENDED GETTING AN UPDATED MRI. PATIENT EXPRESSED UNDERSTANDING OF AND WAS IN AGREEMENT WITH TREATMENT PLAN. GIVEN TIME TO ASK QUESTIONS AND EXPRESS CONCERNS. PRINTED AND REVIEWED PRE-PROCEDURE INSTRUCTIONS WITH PATIENT. PATIENT VERBALIZED UNDERSTANDING. KEITH PHAN 07/02/2020 . DORSALGIA [facility] MRI LUMBAR W/O CONTRAST (CPT 90012)[id number] PROCEDURE CODES FA211 ESTABILISHED PATIENT [facility] FACILITY CHARGE DISPOSITION & COMMUNICATION FOLLOW UP POSTPROCEDURE (REASON: BILATERAL THORACIC AND LOW BACK TRIGGER POINT INJECTIONS, LUMBAR MRI) ELECTRONICALLY SIGNED BY MARY JO POTTER ON 07/04/2020 AT 10:13 AM EST DISCLAIMER : THIS IS A VISIT SUMMARY EXTRACTED FROM THE [facility] CHART. IT IS NOT A COPY OF THE [facility] PROGRESS NOTE. GENNA
== END ==
LOC: M PAIN 14:00
PROVIDERS: ATTEND Family Medicine
DX: M79.18 Myalgia, other site (principal); M54.9 Dorsalgia, unspecified; G47.00 Insomnia, unspecified; J45.909 Unspecified asthma, uncomplicated; F17.210 Nicotine dependence, cigarettes, uncomplicated; Z86.59 Personal history of other mental and behavioral disorders; E66.01 Morbid (severe) obesity due to excess calories; Z68.41 Body mass index [BMI] 40.0-44.9, adult; Z79.899 Other long term (current) drug therapy

== ENCOUNTER 2020-07-19 23:01 | Emergency (ER) | payer OTHER ==
[~2020-07-19] VITALS: Ht 162.6 cm; Wt 104.6 kg
[2020-07-19] MEDS ORDERED: SERO1TAB PO (23:13)
[2020-07-20 00:13] LABS: BASO % 0.1 % (0.0-1.0); HEMATOCRIT 39.3 % (36.0-47.0); HEMOGLOBIN 12.2 g/dl (12.0-15.5); LYMPH # 0.6 10^3/uL (1.5-5.0); MEAN CORPUSCULAR HEMOGLOBIN 25.5 pg (27.0-33.0); MONO % 0.5 % (0.0-5.0); NEUTROPHILS # 7.9 10^3/uL (1.5-8.5); NEUTROPHILS % 91.5 % (36.0-66.0); PLATELET COUNT, AUTOMATED 356 10^3/uL (150-450); RED BLOOD COUNT 4.79 10^6/uL (4.00-5.40); WHITE BLOOD COUNT 8.6 10^3/uL (4.0-10.0)
[2020-07-20 00:21] LABS: INR 1.02; PROTHROMBIN TIME 13.6 SECONDS (12.5-14.3)
[2020-07-20 00:22] LABS: PARTIAL THROMBOPLASTIN TIME 33.3 SECONDS (24.2-38.5)
[2020-07-20] MEDS ORDERED: KETOROLAC 30 MG/ML 1ML VIAL IV ONE (01:00)
[2020-07-20] MEDS ORDERED: NS 1,000 ML IV ONE (01:00)
--- NOTE | 2020-07-20 02:27 | REPVR ---
PROCEDURE INFORMATION: Exam: US Non-obstetric Pelvis; Complete Exam date and time: 07/20/20 (1:17am) Age: 34 years old Clinical indication: Irregular menstruation. Heavy vaginal bleeding. TECHNIQUE: Imaging protocol: Transabdominal pelvic nonobstetric ultrasound. Complete examination. Real time ultrasound with image documentation. COMPARISON: US PELVIS of 06/05/16 FINDINGS: The LMP is reported to be: 07/09/20 The uterus is anteverted, measuring 7.6 x 3.1 x 5.0 cm in dimensions. No uterine mass is seen. The endometrium is thin (4.1 mm thickness). The right ovary measures 3.4 x 2.9 x 3.6 cm in size. Simple right ovarian cyst (2.5 x 2.8 x 2.2 cm size) (2.5 cm avg. size). The left ovary measures 3.0 x 2.6 x 3.0 cm in size. There is no evidence of ovarian torsion on Doppler evaluation. No free pelvic fluid is seen. No solid adnexal masses. IMPRESSION: No acute pathology. No solid pelvic mass. Thin endometrium. Simple right ovarian cyst (2.5 cm size). No evidence of ovarian torsion. Electronically signed by: Imelda Velasquez On 07/20/2020 02:26:36 AM
[2020-07-20 02:44] LABS: CHLAMYDIA DNA AMPLIFICATION NEGATIVE (NEGATIVE); GC DNA AMPLIFICATION NEGATIVE (NEGATIVE)
[2020-07-20 02:45] VITALS: BP 134/86
== END 2020-07-20 03:00 | disposition home or self-care (01) ==
LOC: M ED 23:01
DX: N89.8 Other specified noninflammatory disorders of vagina (principal); Z79.899 Other long term (current) drug therapy; F17.210 Nicotine dependence, cigarettes, uncomplicated
CPT/HCPCS: 76856; 80047; 84702; 85025; 85610; 85730; 86850; 86900; 86901; 87210; 87661; 93976; 96361; 96374; 99284; J1885

== ENCOUNTER → 2020-07-26 | Outpatient (CLI) | payer OTHER ==
[~2020-07-26] MED LIST changes: +SERO1TAB PO
--- NOTE | 2020-07-26 08:50 | REPVR ---
PROCEDURE INFORMATION: Exam: MR Lumbar Spine Without Contrast. Exam date and time: 07/26/2020 8:38 AM Age: 34 years old Clinical indication: Patient HX: Low back pain nki priors 01/2019; Additional info: Dorsalgia TECHNIQUE: Imaging protocol: Multiplanar magnetic resonance images of the lumbar spine without intravenous contrast. COMPARISON: MRI-Spine, L.S. without con 01/11/2019 6:47 PM FINDINGS: Vertebrae: There is 6 mm of grade 1 retrolisthesis of L5 with respect to S1. Normal vertebral body alignment is otherwise preserved. Vertebral body heights are within normal limits. Spinal cord: Normal signal. No cord compression. L1-L2: No significant disc disease. No significant spinal canal stenosis. No neural foraminal stenosis. L2-L3: No significant disc disease. No significant spinal canal stenosis. No neural foraminal stenosis. L3-L4: No significant disc disease. No significant spinal canal stenosis. No neural foraminal stenosis. L4-L5: No significant disc disease. No significant spinal canal stenosis. No neural foraminal stenosis. L5-S1: There is disc bulging/uncovering related to listhesis. There is mild facet hypertrophy. There is dsal-dl-rzaheciu right and moderate left neural foraminal narrowing. There is mild canal stenosis. Soft tissues: Unremarkable. IMPRESSION: Disc bulging/uncovering related to listhesis and facet hypertrophy at L5/S1 contribute to dynw-rr-ryregtya right and moderate left neural foraminal narrowing as well as mild acquired canal stenosis. Electronically signed by: Africa Phillip On 07/26/2020 08:50:22 AM
== END ==
LOC: M RAD 06:48
PROVIDERS: ATTEND Family Medicine
DX: M51.27 Other intervertebral disc displacement, lumbosacral region (principal)

== ENCOUNTER → 2020-08-07 | Outpatient (CLI) | payer OTHER ==
[~2020-08-07] MED LIST changes: +METHACHOLINE KIT (J7674) INH ONE
--- NOTE | 2020-08-07 13:03 | PFTRPT ---
Visit Date: 08/07/2020 Referring Doctor: Lauryn Vega Height: 62.00 Inches Weight: 233.00 Lbs BSA: 2.04 Diagnosis: DYSPNEA QUALITY: Study of excellent technical quality. PROCEDURE: Under protocol, methacholine was administered. At a dose of 2.5 mg or 13.875 CDUs, a 23% decline in the FEV1 was noted. PC of 0.89 is significant. Flow rates did return to baseline post bronchodilator administration. IMPRESSION: Positive methacholine challenge study. MTDD
== END ==
LOC: M CARPUL 12:20
PROVIDERS: ATTEND Nurse Practitioner Adult Health
DX: R06.00 Dyspnea, unspecified (principal)
CPT/HCPCS: 94070; 95070; J7674

== ENCOUNTER → 2020-08-08 | Outpatient (CLI) | payer OTHER ==
[~2020-08-08] MED LIST changes: -METHACHOLINE KIT (J7674) INH ONE
== END ==
LOC: M LABSMTC 13:28
PROVIDERS: ATTEND Anesthesiology
DX: Z20.822 Contact with and (suspected) exposure to COVID-19 (principal)

== ENCOUNTER → 2020-08-13 | Outpatient (CLI) | payer OTHER ==
[~2020-08-13] MED LIST changes: +BUPIVACAINE HCL 0.25% 10ML VIAL As Ordered ONE; +BUPIVACAINE HCL 0.25% 30ML VIAL As Ordered ONE; +NORCO, ANEXSIA 5/325MG TABLET (HYDROcodone/ACETAMINOPHEN) As Ordered ONE; +TRIAMCINOLONE ACETONIDE SUSP 40 MG/ML VIAL (J3301) As Ordered ONE; +diazePAM 5MG TABLET As Ordered ONE
--- NOTE | 2020-08-16 02:11 | ECWPNPC ---
PATIENT NAME: ASHLEY DANIEL : 1985 GENDER: FEMALE VISIT DATE: 08/13/2020 DISCHARGE DATE: 08/13/20 1220 VISIT LOCKED DATE TIME: PHYSICIAN: KEVIN POWELL MD PHYSICIAN PAGER NO: INACTIVE RESOURCE: KEVIN POWELL MD REASON FOR APPOINTMENT 1. TRIGGER POINT INJECTIONS BILATERAL THORACIC AND BILATERAL LOW BACK HISTORY OF PRESENT ILLNESS GENERAL: -. FALL RISK SCREENING: SCREENING :NO FALLS REPORTED IN THE LAST YEAR PAIN SCREENING: PATIENT HAS A COMPLAINT OF ACUTE OR CHRONIC PAIN :YES LOCATION OF PAIN:MID BACK, LOW BACK INTENSITY OF PAIN (SCALE OF 1 TO 10):9 WHAT DOES YOUR PAIN FEEL LIKE:ACHING, CONTINOUS, SHARP, TENDER, THROBBING, SORE DURATION:CONTINOUS, CONSTANT PAIN IS INCREASED BY:ACTIVITIES PAIN IS DECREASED BY:USE OF PAIN MEDICATIONS NURSING NOTE: -. PAIN CENTER INTAKE QUESTIONS: DO YOU HAVE A HISTORY OF MRSA? :NO DO YOU TAKE A BLOOD THINNERS? :NO DO YOU HAVE ANY BLEEDING DISORDERS? :NO ANY NEW NUMBNESS OR WEAKNESS IN YOUR LEGS OR ARMS? :NO ANY PACEMAKER,DEFIBRILLATOR, OR DORSAL COLUMN STIMULATOR? :NO DO YOU HAVE ANY RASHES OR OPEN SORES? :NO ARE YOU ALLERGIC TO IV DYE? :NO ARE YOU DIABETIC? :NO ANY NEW PROBLEMS WITH YOUR MEDICATIONS? :NO HAVE YOU RECEIVED A VACCINE IN THE PAST 30 DAYS? :NO DO YOU PLAN TO RECEIVE A VACCINE IN THE NEXT 21 DAYS? :NO DO YOU TAKE ANY IMMUNOSUPPRESSIVE MEDICATIONS? :NO ANY HISTORY OF SEIZURES? :NO ANY HISTORY OF CARDIAC ISSUES OR EVENTS? :NO DO YOU HAVE SLEEP APNEA? :YES DO YOU WEAR A CPAP?YES ANY RECENT HEAD INJURY? :NO DO YOU HAVE ANY NEW INFECTIONS? :NO IS THERE A CHANCE YOU COULD BE ? :NO ARE YOU BREAST FEEDING? :NO WHEN DID YOU LAST EAT? : -08/12 1900 WHEN DID YOU LAST DRINK? : -08/13 08 WHAT DID YOU LAST DRINK? : WATER NAME OF PERSON DRIVING YOU HOME? : -[employer] DO YOU HAVE ANY OTHER QUESTIONS OR CONCERNS? : - CURRENT MEDICATIONS TAKING CLARITIN 10 MG TABLET 1 TABLET ORALLY ONCE A DAY TAKING SEROQUEL 100 MG TABLET 1 TABLET AT BEDTIME ORALLY ONCE A DAY TAKING BACLOFEN 20 MG TABLET 1 TABLET WITH FOOD OR MILK ORALLY THREE TIMES A DAY TAKING IBUPROFEN 200 MG TABLET 1 TABLET WITH FOOD OR MILK NEEDED ORALLY THREE TIMES A DAY NOT-TAKING TRAZODONE HCL 100 MG TABLET 1 TABLET AT BEDTIME NEEDED ORALLY ONCE A DAY NOT-TAKING IBUPROFEN 800 MG TABLET 1 TABLET WITH FOOD OR MILK NEEDED ORALLY THREE TIMES A DAY NOT-TAKING ESCITALOPRAM OXALATE 20 MG TABLET 0.5 TABLET ORALLY ONCE A DAY, NOTES: [facility] NOT-TAKING HYDROXYZINE HCL 50 MG TABLET 1 TABLET NEEDED ORALLY TID NEEDED, NOTES: [facility] MEDICATION LIST REVIEWED AND RECONCILED WITH THE PATIENT PAST MEDICAL HISTORY DEPRESSION/ANXIETY INSOMNIA ASTHMA ALLERGIES SEASONALE SURGICAL HISTORY TUBAL - 2015 FAMILY HISTORY FATHER: MOTHER: PATERNAL GRAND FATHER: UNKNOWN PATERNAL GRAND MOTHER: UNKNOWN MATERNAL GRAND FATHER: UNKNOWN MATERNAL GRAND MOTHER: UNKNOWN MOTHER - UNKNOWN MEDICAL ISSUES. LOST CONTACT WITH FATHER. SOCIAL HISTORY GENERAL: TOBACCO USE ARE YOU A:CURRENT SMOKER ARE YOU INTERESTED IN QUITTING?NOT READY TO QUIT COUNSELED THE PATIENT ON SMOKING EFFECTS, EDUCATION LKETREHW01/08/2020 HOW MANY CIGARETTES A DAY DO YOU SMOKE?6-10 HOW SOON AFTER YOU WAKE UP DO YOU SMOKE YOUR FIRST CIGARETTE?AFTER 60 MIN HOW OFTEN DO YOU SMOKE CIGARETTES?EVERY DAY PATIENT COUNSELED ON THE DANGERS OF TOBACCO USE AND URGED TO QUIT:03/27/2020 SMOKING CESSATION INFORMATION GIVEN01/03/2020 LATEX QUESTIONNAIRE LATEX ALLERGY : HAVE YOU EVER DEVELOPED ANY TYPE OF REACTION AFTER HANDLING LATEX PRODUCTS SUCH RUBBER GLOVES, CONDOMS, DIAPHRAGMS, BALLOONS, SOCKS, OR UNDERWEAR?NO LATEX ALLERGY : HAVE YOU EVER DEVELOPED ANY TYPE OF REACTION DURING OR AFTER DENTAL APPOINTMENT, VAGINAL/RECTAL EXAMINATION, SURGICAL PROCEDURE, OR ANY OTHER EXPOSURE?NO LATEX RISK : HAVE YOU EVER HAD ANY DIFFICULTY BREATHING OR HIVES AFTER EATING OR HANDLING ANY FRUITS, OR VEGETABLES; SUCH KIWI, BANANAS, STONE FRUITS, OR CHESTNUTSNO LATEX RISK : DO YOU HAVE A PREVIOUS PERSONAL HISTORY OF MORE THAN NINE SURGERIES, SPINA BIFIDA, OR REPEATED CATHERIZATIONS? NO LATEX RISK : ARE YOU FREQUENTLY EXPOSED TO LATEX PRODUCTS IN YOUR OCCUPATION?NO DATE ASKED : 08/13/2020 ALCOHOL SCREENING DID YOU HAVE A DRINK CONTAINING ALCOHOL IN THE PAST YEAR?NO POINTS0 INTERPRETATIONNEGATIVE RECREATIONAL DRUG USE DRUG USE?NO CAFFEINE CAFFEINE USE?YES 2 SODAS DAILY SEXUAL HX HAD SEX IN THE LAST 12 MONTHS (VAGINAL, ORAL, OR ANAL)?YES WITHMEN ONLY PREVENTION STRATEGIES DISCUSSED:OTHER USE PROTECTION?YES HOW OFTEN?SOME OF THE TIME LMP:09/07/17 HAVE YOU EVER HAD AN STD?NO HIV / HEP-C SCREENING HIV TEST OFFERED TO PATIENT:YES DATE OFFERED:09/25/2017 TEST ACCEPTED:YES BROCHURE PROVIDED TO PATIENTYES SABIANISM [id number] NONE LANGUAGE LANGUAGES SPOKEN:KOREAN EDUCATION LEVEL OF EDUCATION:HIGH SCHOOL LEARNING BARRIERS / SPECIAL NEEDS BARRIERS TO LEARNING?YES HAS DIFFICULTY WITH COMPREHENSION PER PATIENT. 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 OTHERS AT HOME: EX PARTNER, NOW ROOM MATES. - PFS REFERRAL NEEDED?NO CLERGY REFERRAL NEEDED?NO PUBLIC HEALTH REFERRAL NEEDED?NO WAS THE PROVIDER NOTIFIED OF ANY PERTINENT INFO?YES HAS THE PATIENT BEEN EDUCATED REGARDING HIS/HER PLAN OF CARE?YES HAS THE PATIENT BEEN EDUCATED REGARDING PAIN, THE RISK FOR PAIN, THE IMPORTANCE OF EFFECTIVE PAIN MANAGEMENT, AND THE PAIN ASSESSMENT PROCESS?YES ADVANCE DIRECTIVE ADVANCE DIRECTIVE DISCUSSED WITH PATIENT:YES DOES NOT HAVE ADVANCED DIRECTIVES AT THIS TIME. PATIENT GIVEN INFORMATION AND PATIENT WILL TAKE HOME TO REVIEW. VITAL SIGNS WT 234.8 LBS, HT 64 IN, BMI 40.30 INDEX, BP 145/84 MM HG, HR 87 /MIN, RR 18 /MIN, TEMP 96.9 F, OXYGEN SAT % 100%, SAFE IN ENV? (Y/N) YES, NA INITIALS SC 10:55, REVIEWED BY: STACY HERNADEZ. EXAMINATION GENERAL EXAMINATION: THE PATIENT IS ALERT, ORIENTED TIMES THREE AND COOPERATIVE. LUNGS ARE CLEAR TO AUSCULTATION. HEART SHOWS REGULAR RHYTHM, NO MURMURS AND NO GALLOPS. ASSESSMENTS MYALGIA, OTHER SITE - M79.18 (PRIMARY) TREATMENT MYALGIA, OTHER SITE MEDICATION: VALIUM TAB 5MG ORALLY (DIAZEPAM)ALFONSO SHUKLA 08/13/2020 11:29:07 AM > VERIFIED YVONNE MARTINEZ 08/13/2020 11:31:09 AM > ADMINISTERED COMPLETION OF PROCEDURAL VISIT WHEN MEETS CRITERIA MED: PAIN NORCO TABLET 5MG/325MG ORALLY HYDROCODONE/ACETAMINOPHENALFONSO SHUKLA 08/13/2020 11:29:46 AM > VERIFIED YVONNE MARTINEZ 08/13/2020 11:31:35 AM > ADMINISTERED OTHERS NOTES: 08/08/20 1755 ATTEMPTED PAT. PATIENT NOT HOME. STATED WE WOULD TRY AGAIN ANOTHER TIME. Kinsey ARGUELLO RN . PROCEDURES PAIN NURSING RECORD PROCEDURE IN ROOM 1055, PHYSICIAN IN ROOM 1151, START 1154, FINISH 1156, PHYSICIAN OUT OF ROOM 1156, ECG N/A, PATIENT SHIELDED N/A, SAFETY STRAP N/A, PREP ALCOHOL BY DR POWELL, DRESSING TEGADERM BY Meghana MARTINEZ RN LOC: YVONNE MARTINEZ 08/13/2020 11:47:50 AM > , 1. ALERT, ORIENTED RESP: YVONNE MARTINEZ 08/13/2020 11:47:55 AM > , 1. REGULAR, NO DYSPNEA COLOR: YVONNE MARTINEZ 08/13/2020 11:48:01 AM > , 1. PINK SKIN: YVONNE MARTINEZ 08/13/2020 11:48:05 AM > , 1. WARM, DRY POSITION: YVONNE MARTINEZ 08/13/2020 11:48:11 AM > , 5. SITTING VITALS: YVONNE MARTINEZ 08/13/2020 12:05:33 PM > 120/74 HR90 16 100%R/A D/C V/S COMPLETION OF PROCEDURE APPOINTMENT: POST PAIN 9, DRESSING SITE DRY AND INTACT, IV N/A, GAIT STEADY, TEACHING COMPLETED, PATIENT ACKNOWLEDGES UNDERSTANDING YES, PROCEDURE APPOINTMENT COMPLETED AT 1213 PN TRIGGER POINT INJECTION WITH STEROIDS PRE PROCEDURE DIAGNOSIS 1. MYALGIA 2. PAIN AT BILATERAL THORACIC AREA AND BILATERAL LOW BACK AREA POST PROCEDURE DIAGNOSIS 1. MYALGIA 2. PAIN AT BILATERAL THORACIC AREA AND BILATERAL LOW BACK AREA PROCEDURE TRIGGER POINT INJECTION AT BILATERAL THORACIC AREA AND BILATERAL LOW BACK AREA SURGEON DR. KEVIN POWELL GLASS BREAKER NONE ANESTHESIA LOCAL PRE PROCEDURE NOTE THE PATIENT HAS A HISTORY OF CHRONIC PAIN AT THE RIGHT AND LEFT THORACIC AREA AND RIGHT AND LEFT LOW BACK AREA. I EVALUATED THE PATIENT AND REVIEWED THE CHART. THERE IS EVIDENCE OF BANDS OF TISSUE WITH RESTRICTION OF MOVEMENT AND PRESENCE OF TRIGGER POINT AT THE RIGHT AND LEFT THORACIC AREA AND RIGHT AND LEFT LOW BACK AREA. I WENT OVER THE RISKS, ALTERNATIVES, AND BENEFITS ASSOCIATED WITH THIS PROCEDURE. THE PATIENT WOULD LIKE TO PROCEED AND GIVE CONSENT TO PERFORMED THE PROCEDURE. THE PATIENT DENIES UNEXPLAINABLE WEIGHT LOSS, FEVER, CHILLS, OR NEW CHANGES IN URINARY OR BOWEL CONTROL. THE PATIENT IS COVID-19 NEGATIVE DESCRIPTION OF PROCEDURE THE PATIENT WAS BROUGHT TO THE PROCEDURE ROOM AND PLACED IN THE SITTING POSITION. THE AREA WAS CLEANED WITH ALCOHOL. THE PROCEDURE WAS DONE USING ASEPTIC STERILE TECHNIQUE. A TIMEOUT WAS PERFORMED WHERE THE CONSENTED SITE WAS VERIFIED WITH EVERYONE IN THE ROOM. USING A 25-GAUGE NEEDLE, TRIGGER POINTS WERE INJECTED AT THE RIGHT AND LEFT THORACIC AREA AND RIGHT AND LEFT LOW BACK AREA WITH A TOTAL OF 40 ML OF BUPIVACAINE 0.25% AND KENALOG 40 MG. THE MEDICATIONS WERE VERIFIED WITH THE NURSE. THERE WAS NO EVIDENCE OF BLOOD OR PARESTHESIA DURING THE PROCEDURE. THE PATIENT WAS SENT TO THE RECOVERY ROOM. THE PATIENT WAS MOVING THE EXTREMITIES AND DOING WELL. THERE WERE NO COMPLICATIONS DURING THE PROCEDURE. ESTIMATED BLOOD LOSS WAS LESS THAN 5 ML POST PROCEDURE NOTE DEPENDING ON THE RESULTS, CONSIDER WORKING WITH THE FACETS. THE PROCEDURE DONE WAS DISCUSSED WITH THE PATIENT. THE PATIENT WILL BE SEEN IN A FOLLOW UP IN THE NEXT FEW WEEKS. I AM LOOKING FOR LONG LASTING PAIN RELIEF FOR THE PATIENT WITH THIS INTERVENTION. INSTRUCTIONS WERE GIVEN, QUESTIONS WERE ANSWERED, AND THE PATIENT EXPRESSED UNDERSTANDING AND AGREES WITH THE PLAN. I, MANDI MENA, DOCUMENTED THE ABOVE INFORMATION ACTING A SCRIBE FOR DR. POWELL. I HAVE REVIEWED THE ABOVE DOCUMENT, WRITTEN BY MANDI MENA, GRAVITY METER OPERATOR, AND I VERIFY THAT IT IS ACCURATE PROCEDURE CODES 78200 INJECT TRIGGER POINTS 3/> DISPOSITION & COMMUNICATION FOLLOW UP FOLLOW UP WITH INDUSTRIAL TECHNICIAN (REASON: POST TRIGGER POINT INJECTIONS BILATERAL THORACIC AND BILATERAL LOW BACK) ELECTRONICALLY SIGNED BY KEVIN POWELL MD, MD ON 08/15/2020 AT 01:11 PM EST DISCLAIMER : THIS IS A VISIT SUMMARY EXTRACTED FROM THE [facility] CHART. IT IS NOT A COPY OF THE [facility] PROGRESS NOTE. MTDD
== END ==
LOC: M PAIN 10:40
PROVIDERS: ATTEND Anesthesiology
DX: M79.18 Myalgia, other site (principal); G47.30 Sleep apnea, unspecified; G47.00 Insomnia, unspecified; J45.909 Unspecified asthma, uncomplicated; F17.210 Nicotine dependence, cigarettes, uncomplicated; Z86.59 Personal history of other mental and behavioral disorders; E66.01 Morbid (severe) obesity due to excess calories; Z68.41 Body mass index [BMI] 40.0-44.9, adult; Z79.899 Other long term (current) drug therapy
CPT/HCPCS: 20553; J3301

== ENCOUNTER → 2020-08-27 | Outpatient (CLI) | payer OTHER ==
[~2020-08-27] MED LIST changes: -AMIT10TA PO; +AMIT10TA7 PO; -BUPIVACAINE HCL 0.25% 10ML VIAL As Ordered ONE; -BUPIVACAINE HCL 0.25% 30ML VIAL As Ordered ONE; -NORCO, ANEXSIA 5/325MG TABLET (HYDROcodone/ACETAMINOPHEN) As Ordered ONE; -TRIAMCINOLONE ACETONIDE SUSP 40 MG/ML VIAL (J3301) As Ordered ONE; -diazePAM 5MG TABLET As Ordered ONE
--- NOTE | 2020-09-01 04:55 | ECWPNPC ---
PATIENT NAME: ASHLEY DANIEL : 1985 GENDER: FEMALE VISIT DATE: 08/27/2020 DISCHARGE DATE: 08/27/20 1440 VISIT LOCKED DATE TIME: PHYSICIAN: JORGE A VEGA PHYSICIAN PAGER NO: INACTIVE RESOURCE: JORGE A VEGA REASON FOR APPOINTMENT 1. POST BILATERAL THORACIC AND LOW BACK TRIGGER POINT INJECTIONS HISTORY OF PRESENT ILLNESS GENERAL: HERE FOR POST PROCEDURE FOLLOW-UP. THIS IS A PATIENT THAT USUALLY FOLLOWS WITH JOHNIE MARTÍNEZ HERE AT THE PAIN CLINIC. HAD TRIGGER POINT INJECTIONS BILATERAL THORACIC AND LOW BACK ON 08/13/2020. REPORTING NO IMPROVEMENT IN PAIN POST PROCEDURE. STATES SHE'S HAD THIS PROCEDURE DONE BEFORE IN THE PAST AND IT WASN'T HELPFUL EITHER. DR. POWELL HAD SUGGESTED WE CONSIDER LUMBAR FACET INJECTIONS. TODAY I DISCUSSED LUMBAR FACET DIAGNOSTIC TESTING AND RADIOFREQUENCY. PATIENT WOULD LIKE TO PURSUE THIS.-. FALL RISK SCREENING: SCREENING : NO FALLS REPORTED IN THE LAST YEAR. PAIN SCREENING: PATIENT HAS A COMPLAINT OF ACUTE OR CHRONIC PAIN :YES LOCATION OF PAIN:LOW BACK INTENSITY OF PAIN (SCALE OF 1 TO 10):10 WHAT DOES YOUR PAIN FEEL LIKE:ACHING, BURNING, THROBBING DURATION:CONTINOUS, CONSTANT, ALL DAY PAIN IS INCREASED BY:ACTIVITIES PAIN IS DECREASED BY:OTHERS LAYING DOWN NURSING NOTE: -. PAIN CENTER INTAKE QUESTIONS: DO YOU HAVE A HISTORY OF MRSA? :NO DO YOU TAKE A BLOOD THINNERS? :NO DO YOU HAVE ANY BLEEDING DISORDERS? :NO ANY NEW NUMBNESS OR WEAKNESS IN YOUR LEGS OR ARMS? :NO ANY PACEMAKER,DEFIBRILLATOR, OR DORSAL COLUMN STIMULATOR? :NO DO YOU HAVE ANY RASHES OR OPEN SORES? :NO ARE YOU ALLERGIC TO IV DYE? :NO ARE YOU DIABETIC? :NO ANY NEW PROBLEMS WITH YOUR MEDICATIONS? :NO HAVE YOU RECEIVED A VACCINE IN THE PAST 30 DAYS? :NO DO YOU PLAN TO RECEIVE A VACCINE IN THE NEXT 21 DAYS? :NO DO YOU NEED ANY PRESCRIPTION? :YES BACLOFEN DO YOU TAKE ANY IMMUNOSUPPRESSIVE MEDICATIONS? :NO IS THERE A CHANCE YOU COULD BE ? :NO ARE YOU BREAST FEEDING? :NO CURRENT MEDICATIONS TAKING CLARITIN 10 MG TABLET 1 TABLET ORALLY ONCE A DAY TAKING SEROQUEL 100 MG TABLET 1 TABLET AT BEDTIME ORALLY ONCE A DAY TAKING BACLOFEN 20 MG TABLET 1 TABLET WITH FOOD OR MILK ORALLY THREE TIMES A DAY NOT-TAKING TRAZODONE HCL 100 MG TABLET 1 TABLET AT BEDTIME NEEDED ORALLY ONCE A DAY NOT-TAKING IBUPROFEN 800 MG TABLET 1 TABLET WITH FOOD OR MILK NEEDED ORALLY THREE TIMES A DAY NOT-TAKING ESCITALOPRAM OXALATE 20 MG TABLET 0.5 TABLET ORALLY ONCE A DAY, NOTES: [facility] NOT-TAKING HYDROXYZINE HCL 50 MG TABLET 1 TABLET NEEDED ORALLY TID NEEDED, NOTES: [facility] NOT-TAKING IBUPROFEN 200 MG TABLET 1 TABLET WITH FOOD OR MILK NEEDED ORALLY THREE TIMES A DAY MEDICATION LIST REVIEWED AND RECONCILED WITH THE PATIENT PAST MEDICAL HISTORY DEPRESSION/ANXIETY INSOMNIA ASTHMA LOW BACK PAIN ALLERGIES SEASONALE SOCIAL HISTORY GENERAL: TOBACCO USE ARE YOU A:CURRENT SMOKER HOW OFTEN DO YOU SMOKE CIGARETTES?EVERY DAY HOW SOON AFTER YOU WAKE UP DO YOU SMOKE YOUR FIRST CIGARETTE?AFTER 60 MIN HOW MANY CIGARETTES A DAY DO YOU SMOKE?6-10 ARE YOU INTERESTED IN QUITTING?NOT READY TO QUIT PATIENT COUNSELED ON THE DANGERS OF TOBACCO USE AND URGED TO QUIT:03/27/2020 COUNSELED THE PATIENT ON SMOKING EFFECTS, EDUCATION [id number]/08/2020 SMOKING CESSATION INFORMATION GIVEN01/03/2020 LATEX QUESTIONNAIRE LATEX ALLERGY : HAVE YOU EVER DEVELOPED ANY TYPE OF REACTION AFTER HANDLING LATEX PRODUCTS SUCH RUBBER GLOVES, CONDOMS, DIAPHRAGMS, BALLOONS, SOCKS, OR UNDERWEAR?NO LATEX ALLERGY : HAVE YOU EVER DEVELOPED ANY TYPE OF REACTION DURING OR AFTER DENTAL APPOINTMENT, VAGINAL/RECTAL EXAMINATION, SURGICAL PROCEDURE, OR ANY OTHER EXPOSURE?NO LATEX RISK : HAVE YOU EVER HAD ANY DIFFICULTY BREATHING OR HIVES AFTER EATING OR HANDLING ANY FRUITS, OR VEGETABLES; SUCH KIWI, BANANAS, STONE FRUITS, OR CHESTNUTSNO LATEX RISK : DO YOU HAVE A PREVIOUS PERSONAL HISTORY OF MORE THAN NINE SURGERIES, SPINA BIFIDA, OR REPEATED CATHERIZATIONS? NO LATEX RISK : ARE YOU FREQUENTLY EXPOSED TO LATEX PRODUCTS IN YOUR OCCUPATION?NO DATE ASKED : 08/27/2020 ALCOHOL USE: NO. ALCOHOL SCREENING DID YOU HAVE A DRINK CONTAINING ALCOHOL IN THE PAST YEAR?NO POINTS0 INTERPRETATIONNEGATIVE RECREATIONAL DRUG USE DRUG USE?NO CAFFEINE CAFFEINE USE?YES 2 SODAS DAILY SEXUAL HX HAD SEX IN THE LAST 12 MONTHS (VAGINAL, ORAL, OR ANAL)?YES WITHMEN ONLY PREVENTION STRATEGIES DISCUSSED:OTHER USE PROTECTION?YES HOW OFTEN?SOME OF THE TIME LMP:09/07/17 HAVE YOU EVER HAD AN STD?NO HIV / HEP-C SCREENING HIV TEST OFFERED TO PATIENT:YES DATE OFFERED:09/25/2017 TEST ACCEPTED:YES BROCHURE PROVIDED TO PATIENTYES EVANGELICAL [id number] NONE LANGUAGE LANGUAGES SPOKEN:NIUEAN EDUCATION LEVEL OF EDUCATION:HIGH SCHOOL LEARNING BARRIERS / SPECIAL NEEDS CHANGE FROM LAST VISIT?NO BARRIERS TO LEARNING?YES HAS DIFFICULTY WITH COMPREHENSION PER PATIENT. 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 OTHERS AT HOME: EX PARTNER, NOW ROOM MATES. - PFS REFERRAL NEEDED?NO CLERGY REFERRAL NEEDED?NO PUBLIC HEALTH REFERRAL NEEDED?NO WAS THE PROVIDER NOTIFIED OF ANY PERTINENT INFO?YES HAS THE PATIENT BEEN EDUCATED REGARDING HIS/HER PLAN OF CARE?YES HAS THE PATIENT BEEN EDUCATED REGARDING PAIN, THE RISK FOR PAIN, THE IMPORTANCE OF EFFECTIVE PAIN MANAGEMENT, AND THE PAIN ASSESSMENT PROCESS?YES ADVANCE DIRECTIVE ADVANCE DIRECTIVE DISCUSSED WITH PATIENT:YES DOES NOT HAVE ADVANCED DIRECTIVES AT THIS TIME. PATIENT GIVEN INFORMATION AND PATIENT WILL TAKE HOME TO REVIEW. REVIEW OF SYSTEMS CONSTITUTIONAL: ANY RECENT FEVER NO . CHILLS NO . WEIGHT CHANGE OF UNKNOWN REASONS NO . GASTROENTEROLOGY: NEW UNEXPLAINABLE CHANGES IN BOWEL CONTROL NO . CONSTIPATION NO . GENITOURINARY: ANY NEW CHANGE IN BLADDER CONTROL? NO . NEUROLOGY: NEW ONSET DIZZINESS OR NEUROLOGICAL CHANGES NOT MENTIONED NO . NEW NUMBNESS OR PAIN PATTERNS NOT MENTIONED AND PERTINENT TO TODAY'S VISIT NO . CARDIOLOGY: NEW CHEST PRESSURE NO . PATIENT DENIES NO . RESPIRATORY: UNEXPLAINABLE COUGH NO . NEW SHORTNESS OF BREATH NO . VITAL SIGNS WT 230.2 LBS, HT 64 IN, BMI 39.51 INDEX, BP 121/70 MM HG, HR 86 /MIN, RR 18 /MIN, TEMP 97.4 F, OXYGEN SAT % 97%, NA INITIALS AW 1408. EXAMINATION GENERAL EXAMINATION: GENERAL AWAKE,ALERT ,PLEAASANT . PSYCH AFFECT NORMAL . LUNGS: LUNG IBARRA ARE CLEAR TO AUSCULTATION BILATERALLY. GOOD MOVEMENT OF AIR . HEART: S1, S2 IN A REGULAR RATE AND RHYTHM. NO SIGNIFICANT MURMURS, RUBS OR GALLOPS NOTED . LUMBAR: PALPATION: + FOR PAIN OVER L/S SPINE. + FOR PAIN OVER L/S PARASPINALS .SPECIFIC POINT TENDERNESS OVER BILAT L4/5-L5/S1 LUMBAR FACETS WITH FACET LOADING. NEUROLOGIC EXAM: NORMAL SENSATION LIGHT TOUCH BILAT. LOWER EXTREMITIES . DIAGNOSTIC TESTS REVIEWED MRI L/S SPINE-07/26/20. ASSESSMENTS OTHER CHRONIC PAIN - G89.29 (PRIMARY) OTHER SPONDYLOSIS, LUMBOSACRAL REGION - M47.897 TREATMENT OTHER CHRONIC PAIN PAIN PROCEDURE LOGDATE OF PROCEDURE1PROCEDURE:TRIGGER POINT INJECTION BILATERAL THORACIC AND BILATERAL LOW BACKAMOUNT OF PRE SEDATEVALIUM 5MG, NORCO 5/325MGRESULT:NO IMPROVEMENT POST PROCEDURE NOTES: BILATERAL DIAGNOSTIC LUMBAR FACET BLOCK L4-5,L5-S1. PROCEDURE CODES FA211 ESTABILISHED PATIENT [facility] FACILITY CHARGE DISPOSITION & COMMUNICATION FOLLOW UP POST PROCEDURE WITH JOHNIE (REASON: BILATERAL DIAGNOSTIC LUMBAR FACET BLOCK L4-5,L5-S1) ELECTRONICALLY SIGNED BY MARY JO JEREZ ON 08/31/2020 AT 11:02 AM EST DISCLAIMER : THIS IS A VISIT SUMMARY EXTRACTED FROM THE [facility] CHART. IT IS NOT A COPY OF THE [employer] PROGRESS NOTE. GENNA
== END ==
LOC: M PAIN 13:45
PROVIDERS: ATTEND Nurse Practitioner Family
DX: G89.29 Other chronic pain (principal); M47.897 Other spondylosis, lumbosacral region; F32.9 Major depressive disorder, single episode, unspecified; F41.9 Anxiety disorder, unspecified; J45.909 Unspecified asthma, uncomplicated; G47.00 Insomnia, unspecified; F17.210 Nicotine dependence, cigarettes, uncomplicated; Z79.899 Other long term (current) drug therapy

== ENCOUNTER → 2020-09-05 | Outpatient (CLI) | payer OTHER | LOC: M LABSMTC 13:36 | PROVIDERS: ATTEND Anesthesiology | DX: Z11.52 Encounter for screening for COVID-19 (principal) ==

== ENCOUNTER → 2020-09-10 | Outpatient (CLI) | payer OTHER ==
[~2020-09-10] MED LIST changes: +BUPIVACAINE HCL 0.25% 30ML VIAL As Ordered ONE; +ISOVUE-M 300 61% 15ML VIAL As Ordered ONE; +LIDOCAINE 1% SDV 30ML VIAL As Ordered ONE
--- NOTE | 2020-09-10 12:44 | REP ---
INDICATION: BIALTERAL LUMBAR DIAGNOSTIC FACET BLOCK. COMPARISON: None. TECHNIQUE: C-arm views of lower lumbar spine performed. FINDINGS: [place] are seen along the lower lumbar spine and a small amount of contrast is injected. IMPRESSION: 27 seconds fluoroscopy time utilized. <Electronically signed by Scooby Salamanca > 09/10/20 0383
--- NOTE | 2020-09-11 01:15 | ECWPNPC ---
PATIENT NAME: ASHLEY DANIEL : 1985 GENDER: FEMALE VISIT DATE: 09/10/2020 DISCHARGE DATE: 09/10/20 1240 VISIT LOCKED DATE TIME: PHYSICIAN: KEVIN POWELL MD PHYSICIAN PAGER NO: INACTIVE RESOURCE: KEVIN POWELL MD REASON FOR APPOINTMENT 1. BILATERAL DIAGNOSTIC LUMBAR FACET BLOCK #1 L4-L5, L5-S1 HISTORY OF PRESENT ILLNESS GENERAL: -. FALL RISK SCREENING: SCREENING : NO FALLS REPORTED IN THE LAST YEAR. PAIN SCREENING: PATIENT HAS A COMPLAINT OF ACUTE OR CHRONIC PAIN :YES LOCATION OF PAIN: LOW BACK INTENSITY OF PAIN (SCALE OF 1 TO 10):10 WHAT DOES YOUR PAIN FEEL LIKE:STABBING, SHOOTING, ACHING DURATION:CONTINOUS, AWAKENS FROM SLEEP PAIN IS INCREASED BY:ACTIVITIES, PROLONGED STANDING PAIN IS DECREASED BY:USE OF PAIN MEDICATIONS PLAN/GOALS/TREATMENT/INTERVENTION/FOLLOW UP:SEE PLAN NURSING NOTE: -. PAIN CENTER INTAKE QUESTIONS: DO YOU HAVE A HISTORY OF MRSA? :NO DO YOU TAKE A BLOOD THINNERS? :NO DO YOU HAVE ANY BLEEDING DISORDERS? :NO ANY NEW NUMBNESS OR WEAKNESS IN YOUR LEGS OR ARMS? :NO ANY PACEMAKER,DEFIBRILLATOR, OR DORSAL COLUMN STIMULATOR? :NO DO YOU HAVE ANY RASHES OR OPEN SORES? :NO ARE YOU ALLERGIC TO IV DYE? :NO ARE YOU DIABETIC? :NO ANY NEW PROBLEMS WITH YOUR MEDICATIONS? :NO HAVE YOU RECEIVED A VACCINE IN THE PAST 30 DAYS? :NO DO YOU PLAN TO RECEIVE A VACCINE IN THE NEXT 21 DAYS? :NO DO YOU TAKE ANY IMMUNOSUPPRESSIVE MEDICATIONS? :NO ANY HISTORY OF SEIZURES? :NO ANY HISTORY OF CARDIAC ISSUES OR EVENTS? :NO DO YOU HAVE ANY KIDNEY OR LIVER DISEASE? :NO DO YOU HAVE SLEEP APNEA? :YES DO YOU WEAR A CPAP?YES ANY RECENT HEAD INJURY? :NO DO YOU HAVE ANY NEW INFECTIONS? :NO IS THERE A CHANCE YOU COULD BE ? :NO ARE YOU BREAST FEEDING? :NO WHEN DID YOU LAST EAT? : 09/09/2020 1900 WHEN DID YOU LAST DRINK? : 09/10/2020 0600 WHAT DID YOU LAST DRINK? : SPRITE NAME OF PERSON DRIVING YOU HOME? : [employer] DO YOU HAVE ANY OTHER QUESTIONS OR CONCERNS? : NO CURRENT MEDICATIONS TAKING CLARITIN 10 MG TABLET 1 TABLET ORALLY ONCE A DAY TAKING SEROQUEL 100 MG TABLET 1 TABLET AT BEDTIME ORALLY ONCE A DAY TAKING BACLOFEN 20 MG TABLET 1 TABLET WITH FOOD OR MILK ORALLY THREE TIMES A DAY TAKING REMERON 15 MG TABLET 1 TABLET ORALLY ONCE A DAY TAKING LISINOPRIL 10 MG TABLET 1 TABLET ORALLY ONCE A DAY, NOTES: 09/09/2020 1900 NOT-TAKING TRAZODONE HCL 100 MG TABLET 1 TABLET AT BEDTIME NEEDED ORALLY ONCE A DAY NOT-TAKING IBUPROFEN 800 MG TABLET 1 TABLET WITH FOOD OR MILK NEEDED ORALLY THREE TIMES A DAY NOT-TAKING ESCITALOPRAM OXALATE 20 MG TABLET 0.5 TABLET ORALLY ONCE A DAY NOT-TAKING HYDROXYZINE HCL 50 MG TABLET 1 TABLET NEEDED ORALLY TID NEEDED NOT-TAKING IBUPROFEN 200 MG TABLET 1 TABLET WITH FOOD OR MILK NEEDED ORALLY THREE TIMES A DAY MEDICATION LIST REVIEWED AND RECONCILED WITH THE PATIENT PAST MEDICAL HISTORY DEPRESSION/ANXIETY INSOMNIA ASTHMA LOW BACK PAIN ALLERGIES SEASONALE SOCIAL HISTORY GENERAL: TOBACCO USE ARE YOU A:CURRENT SMOKER ARE YOU INTERESTED IN QUITTING?NOT READY TO QUIT COUNSELED THE PATIENT ON SMOKING EFFECTS, EDUCATION [id number]/08/2020 HOW MANY CIGARETTES A DAY DO YOU SMOKE?6-10 HOW SOON AFTER YOU WAKE UP DO YOU SMOKE YOUR FIRST CIGARETTE?AFTER 60 MIN HOW OFTEN DO YOU SMOKE CIGARETTES?EVERY DAY PATIENT COUNSELED ON THE DANGERS OF TOBACCO USE AND URGED TO QUIT:09/10/2020 SMOKING CESSATION INFORMATION GIVEN09/07/2020 VAPORNO E-CIGARETTENO LATEX QUESTIONNAIRE LATEX ALLERGY : HAVE YOU EVER DEVELOPED ANY TYPE OF REACTION AFTER HANDLING LATEX PRODUCTS SUCH RUBBER GLOVES, CONDOMS, DIAPHRAGMS, BALLOONS, SOCKS, OR UNDERWEAR?NO LATEX ALLERGY : HAVE YOU EVER DEVELOPED ANY TYPE OF REACTION DURING OR AFTER DENTAL APPOINTMENT, VAGINAL/RECTAL EXAMINATION, SURGICAL PROCEDURE, OR ANY OTHER EXPOSURE?NO LATEX RISK : HAVE YOU EVER HAD ANY DIFFICULTY BREATHING OR HIVES AFTER EATING OR HANDLING ANY FRUITS, OR VEGETABLES; SUCH KIWI, BANANAS, STONE FRUITS, OR CHESTNUTSNO LATEX RISK : DO YOU HAVE A PREVIOUS PERSONAL HISTORY OF MORE THAN NINE SURGERIES, SPINA BIFIDA, OR REPEATED CATHERIZATIONS? NO LATEX RISK : ARE YOU FREQUENTLY EXPOSED TO LATEX PRODUCTS IN YOUR OCCUPATION?NO DATE ASKED : 09/10/2020 ALCOHOL USE: NO. ALCOHOL SCREENING DID YOU HAVE A DRINK CONTAINING ALCOHOL IN THE PAST YEAR?NO POINTS0 INTERPRETATIONNEGATIVE RECREATIONAL DRUG USE DRUG USE?NO CAFFEINE CAFFEINE USE?YES 2 SODAS DAILY SEXUAL HX HAD SEX IN THE LAST 12 MONTHS (VAGINAL, ORAL, OR ANAL)?YES WITHMEN ONLY PREVENTION STRATEGIES DISCUSSED:OTHER USE PROTECTION?YES HOW OFTEN?SOME OF THE TIME LMP:09/07/17 HAVE YOU EVER HAD AN STD?NO HIV / HEP-C SCREENING HIV TEST OFFERED TO PATIENT:YES DATE OFFERED:09/25/2017 TEST ACCEPTED:YES BROCHURE PROVIDED TO PATIENTYES EVANGELICAL [id number] NONE LANGUAGE LANGUAGES SPOKEN:DIVEHI EDUCATION LEVEL OF EDUCATION:HIGH SCHOOL LEARNING BARRIERS / SPECIAL NEEDS CHANGE FROM LAST VISIT?NO BARRIERS TO LEARNING?YES HAS DIFFICULTY WITH COMPREHENSION PER PATIENT. COMMENTSDOCUMENTED IN NOTES SECTION> HEARING IMPAIRED?NO VISION IMPAIRED?YES COGNITIVELY IMPAIRED?YES :CORRECTIVE LENSES :MENTAL RETARDATION READINESS TO LEARN?YES LEARNING PREFERENCES?YES LEARNING CAPABILITIES PRESENT?YES EMOTIONAL BARRIERS?NO SPECIAL DEVICES?NO LIBRARY PAGE NEEDED?NO DOMESTIC VIOLENCE STATUS:SINGLE DO YOU FEEL SAFE IN YOUR ENVIRONMENT?YES OCCUPATION: DIABLED- MARITAL STATUS: SINGLE. OTHERS AT HOME: EX PARTNER, NOW ROOM MATES. - PFS REFERRAL NEEDED?NO CLERGY REFERRAL NEEDED?NO PUBLIC HEALTH REFERRAL NEEDED?NO WAS THE PROVIDER NOTIFIED OF ANY PERTINENT INFO?YES HAS THE PATIENT BEEN EDUCATED REGARDING HIS/HER PLAN OF CARE?YES HAS THE PATIENT BEEN EDUCATED REGARDING PAIN, THE RISK FOR PAIN, THE IMPORTANCE OF EFFECTIVE PAIN MANAGEMENT, AND THE PAIN ASSESSMENT PROCESS?YES ADVANCE DIRECTIVE ADVANCE DIRECTIVE DISCUSSED WITH PATIENT:YES DOES NOT HAVE ADVANCED DIRECTIVES AT THIS TIME. PATIENT GIVEN INFORMATION AND PATIENT WILL TAKE HOME TO REVIEW. VITAL SIGNS WT 233 LBS, HT 64 IN, BMI 39.99 INDEX, BP 122/78 MM HG, HR 95 /MIN, RR 18 /MIN, TEMP 97.7 F, OXYGEN SAT % 98%, SAFE IN ENV? (Y/N) YES, NA INITIALS MD 11:22, REVIEWED BY: Caleb MENDOZA RN. EXAMINATION GENERAL EXAMINATION: THE PATIENT IS ALERT, ORIENTED TIMES THREE AND COOPERATIVE. LUNGS ARE CLEAR TO AUSCULTATION. HEART SHOWS REGULAR RHYTHM, NO MURMURS AND NO GALLOPS. 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 PATIENT TOLERATED WELL. COMPLETION OF PROCEDURAL VISIT WHEN MEETS CRITERIALEXIS VALENTIN 09/10/2020 12:41:13 PM > CRITERIA MET OTHERS NOTES: 09/07/20 1221 PAT COMPLETED. Ezequiel AGUILAR SUPERVISOR PURIFICATION. PROCEDURES PAIN NURSING RECORD PROCEDURE IN ROOM 1159, PHYSICIAN IN ROOM 1213, START 1216, FINISH 1225, PHYSICIAN OUT OF ROOM 1227, OUT OF ROOM 1231, ECG NORMAL SINUS, PATIENT SHIELDED YES, SAFETY STRAP YES, PREP CHLOROPREP BY Caleb MENDOZA RN, DRESSING TEGADERM BY DR POWELL LOC: LEXIS VALENTIN 09/10/2020 12:06:08 PM > , 1. ALERT, ORIENTED RESP: LEXIS VALENTIN 09/10/2020 12:06:12 PM > , 1. REGULAR, NO DYSPNEA COLOR: LEXIS VALENTIN 09/10/2020 12:06:16 PM > , 1. PINK SKIN: LEXIS VALENTIN 09/10/2020 12:06:19 PM > , 1. WARM, DRY POSITION: LEXIS VALENTIN 09/10/2020 12:06:23 PM > , 1. PRONE VITALS: LEXIS VALENTIN 09/10/2020 12:06:27 PM > 127/76-80-18-99% , LEXIS VALENTIN 09/10/2020 12:13:19 PM > 125/81-84-18-99% 09/10/2020 1237 125/02-47-16-100% NOTES Kaushal MENDOZA RN COMPLETION OF PROCEDURE APPOINTMENT: POST PAIN 4 BILATERAL LOW BACK, DRESSING SITE DRY AND INTACT BILATERAL LOW BACK, IV DISCONTINUED, SITE CLEAR, CATHETER INTACT DRY STERILE 2X2 APLLIED TO SITE WITH PAPER TAPE, GAIT STEADY, TEACHING COMPLETED, PATIENT ACKNOWLEDGES UNDERSTANDING YES PATIENT VERBALIZES UNDERSTANDING OF POST PROCEDURE INSTRUCTIONS REVIEWED, PROCEDURE APPOINTMENT COMPLETED AT 1240 BY: Kaushal MENDOZA RN PN LUMBAR FACET BLOCK DIAGNOSTIC PRE PROCEDURE DIAGNOSIS LUMBAR SPONDYLOSIS, LUMBOSACRAL SPONDYLOSIS POST PROCEDURE DIAGNOSIS LUMBAR SPONDYLOSIS, LUMBOSACRAL SPONDYLOSIS PROCEDURE BILATERAL L4-L4 AND BILATERAL L5-S1 FACET BLOCK DIAGNOSTIC NUMBER [address] KEVIN POWELL ADVERTISING SALES EXECUTIVE NONE ANESTHESIA LOCAL PRE PROCEDURE NOTE THE PATIENT WITH HISTORY OF CHRONIC LOW BACK PAIN. I EVALUATED THE PATIENT AND REVIEWED THE CHART. I WENT OVER THE RISKS, ALTERNATIVES, AND BENEFITS ASSOCIATED WITH THIS PROCEDURE. THE PATIENT WOULD LIKE TO PROCEED AND GAVE CONSENT TO PERFORM THE PROCEDURE. AGREED WITH THE PATIENT, WE ARE DOING THIS PROCEDURE TO DETERMINE IF THE PATIENT IS A CANDIDATE FOR A RADIOFREQUENCY ABLATION OF THE FACETS JOINTS. THE PATIENT DENIES UNEXPLAINABLE WEIGHT LOSS, FEVER, CHILLS, OR NEW CHANGES IN URINARY OR BOWEL CONTROL. THE PATIENT IS COVID-19 NEGATIVE DESCRIPTION OF PROCEDURE THE PATIENT WAS BROUGHT TO THE PROCEDURE ROOM AND PLACED IN THE PRONE POSITION. THE LUMBOSACRAL AREA WAS CLEANED WITH CHLORAPREP SOLUTION AND DRAPED ASEPTICALLY. THE PROCEDURE WAS DONE UNDER STERILE CONDITIONS. A TIMEOUT WAS PERFORMED WHERE THE CONSENTED SITE WAS VERIFIED WITH EVERYONE IN THE ROOM. UNDER FLUOROSCOPIC GUIDANCE, TARGETS WERE SELECTED AT THE INTERSECTION OF THE RIGHT AND LEFT TRANSVERSE PROCESS OF L4, L5 AND ALA OF S1 WITH ITS RESPECTIVE SUPERIOR ARTICULAR PROCESS WITH A TARGET OF THE MEDIAN BRANCHES OF L3, L4 AND THE DORSAL RAMI OF L5. I CONFIRMED AGAIN THE SITE OF TARGET. LIDOCAINE WAS USED TO NUMB THE SKIN AND THE SUBCUTANEOUS TISSUE BELOW IT. SPINAL NEEDLE, 22-GAUGE, WAS ADVANCED UNDER FLUOROSCOPIC GUIDANCE AND FOLLOWING PATIENT FEEDBACK UNTIL THE TARGETS WERE REACHED. POSITION OF THE NEEDLES WAS VERIFIED WITH AP AND LATERAL VIEWS. AFTER PROPER POSITION OF THE NEEDLES WAS ACHIEVED, ISOVUE-M DYE 30%, 0.1 ML, WAS INJECTED AT EACH SITE SHOWING ADEQUATE SPREAD OF THE DYE. THEN, A SOLUTION OF 0.4 ML OF BUPIVACAINE 0.25% WAS INJECTED AT EACH SITE. THE MEDICATIONS WERE VERIFIED WITH THE NURSE. THERE WAS NO EVIDENCE OF BLOOD, PARESTHESIA OR CEREBROSPINAL FLUID DURING THE PROCEDURE. THE PATIENT WAS SENT TO THE RECOVERY ROOM. THE PATIENT WAS MOVING THE EXTREMITIES AND DOING WELL. THERE WERE NO COMPLICATIONS DURING THE PROCEDURE. ESTIMATED BLOOD LOSS WAS LESS THAN 5 ML. FLUOROSCOPY TIME WAS 26 SECONDS POST PROCEDURE NOTE FOR THE NEXT DIAGNOSTIC TEST, I WOULD LIKE TO USE 7 INCH SPINAL NEEDLES. THE PATIENT WILL DOCUMENT THE PAIN LEVEL AND RESPONSE TO THIS PROCEDURE PER PAIN DIARY. THE PATIENT WILL BE SEEN IN A FOLLOW UP IN THE NEXT FEW WEEKS. FURTHER DETERMINATION FOR THE PATIENT'S CASE WILL BE DONE AT THE NEXT VISIT. INSTRUCTIONS WERE GIVEN, QUESTIONS WERE ANSWERED, AND THE PATIENT EXPRESSED UNDERSTANDING AND AGREED WITH THE PLAN. I, MANDI MENA, DOCUMENTED THE ABOVE INFORMATION ACTING A SCRIBE FOR DR. POWELL. I HAVE REVIEWED THE ABOVE DOCUMENT, WRITTEN BY MANDI MENA, MANAGER REHAB, AND I VERIFY THAT IT IS ACCURATE PROCEDURE CODES 94478 INJ PARAVERT F JNT L/S 1 LEV, MODIFIERS: [id number] INJ PARAVERT F JNT L/S 2 LEV, MODIFIERS: 50 DISPOSITION & COMMUNICATION FOLLOW UP FOLLOW UP WITH LAB ASSOCIATE (REASON: POST BILATERAL DIAGNOSTIC LUMBAR FACET BLOCK #1 L4-L5, L5-S1) ELECTRONICALLY SIGNED BY KEVIN POWELL MD, MD ON 09/10/2020 AT 04:29 PM EDT DISCLAIMER : THIS IS A VISIT SUMMARY EXTRACTED FROM THE [employer] CHART. IT IS NOT A COPY OF THE [employer] PROGRESS NOTE. GENNA
== END ==
LOC: M PAIN 11:20
PROVIDERS: ATTEND Anesthesiology
DX: M47.816 Spondylosis without myelopathy or radiculopathy, lumbar region (principal); M47.817 Spondylosis without myelopathy or radiculopathy, lumbosacral region; F32.9 Major depressive disorder, single episode, unspecified; F41.9 Anxiety disorder, unspecified; J45.909 Unspecified asthma, uncomplicated; F17.210 Nicotine dependence, cigarettes, uncomplicated; Z79.899 Other long term (current) drug therapy
CPT/HCPCS: 64493; 64494; Q9967

== ENCOUNTER → 2020-09-14 | Outpatient (CLI) | payer OTHER ==
[~2020-09-14] MED LIST changes: -BUPIVACAINE HCL 0.25% 30ML VIAL As Ordered ONE; -ISOVUE-M 300 61% 15ML VIAL As Ordered ONE; -LIDOCAINE 1% SDV 30ML VIAL As Ordered ONE
--- NOTE | 2020-09-14 17:19 | REP ---
INDICATION: OTHER NON SPECIFIC ABNORMAL FINDING OF LUNG FIELD. COMPARISON: PA and lateral chest dated 07/16/2020, outside study from [facility]. TECHNIQUE: CT of the chest without IV contrast. FINDINGS: There are no infiltrates. There are no pleural effusions. There are no nodules or masses. There is no mediastinal or axillary lymph node enlargement. In the absence of IV contrast the study is insensitive for hilar lymph node enlargement. The thoracic aorta is unremarkable. Cardiac size is normal. No pericardial effusion. The visualized unenhanced upper abdominal contents are unremarkable. IMPRESSION: Essentially negative CT study of the chest without IV contrast. <Electronically signed by Scooby Macias > 09/14/20 2467
== END ==
LOC: M RAD 14:12
PROVIDERS: ATTEND Nurse Practitioner Adult Health
DX: R91.8 Other nonspecific abnormal finding of lung field (principal)

== ENCOUNTER → 2020-10-10 | Outpatient (CLI) | payer OTHER ==
--- NOTE | 2020-10-12 01:16 | ECWPNPC ---
PATIENT NAME: ASHLEY DANIEL : 1985 GENDER: FEMALE VISIT DATE: 10/10/2020 DISCHARGE DATE: 10/10/20 1517 VISIT LOCKED DATE TIME: PHYSICIAN: JOHNIE MARTÍNEZ PHYSICIAN PAGER NO: INACTIVE RESOURCE: JOHNIE MARTÍNEZ REASON FOR APPOINTMENT 1. POST BILATERAL DIAGNOSTIC LUMBAR FACET BLOCK L4-L5,L5-S1 HISTORY OF PRESENT ILLNESS GENERAL: 35-YEAR-OLD FEMALE IN FOR POST BILATERAL DIAGNOSTIC LUMBAR FACET BLOCK FOLLOW-UP. PATIENT FEELS THE PROCEDURE DECREASED HER PAIN GREATER THAN 50% FOR APPROXIMATELY 6 HOURS. SHE RATES HER PAIN CURRENTLY AT AN 8 OUT OF 10 AND DESCRIBES IT ACHING AND THROBBING. FALL RISK SCREENING: SCREENING : NO FALLS REPORTED IN THE LAST YEAR. PAIN SCREENING: PATIENT HAS A COMPLAINT OF ACUTE OR CHRONIC PAIN :YES LOCATION OF PAIN:LOW BACK INTENSITY OF PAIN (SCALE OF 1 TO 10):8 WHAT DOES YOUR PAIN FEEL LIKE:ACHING, THROBBING DURATION:CONTINOUS, CONSTANT, ALL DAY PAIN IS INCREASED BY:ACTIVITIES, PROLONGED STANDING PAIN IS DECREASED BY:OTHERS LAYING DOWN NURSING NOTE: -. PAIN CENTER INTAKE QUESTIONS: DO YOU HAVE A HISTORY OF MRSA? :NO DO YOU TAKE A BLOOD THINNERS? :NO DO YOU HAVE ANY BLEEDING DISORDERS? :NO ANY NEW NUMBNESS OR WEAKNESS IN YOUR LEGS OR ARMS? :NO ANY PACEMAKER,DEFIBRILLATOR, OR DORSAL COLUMN STIMULATOR? :NO DO YOU HAVE ANY RASHES OR OPEN SORES? :NO ARE YOU ALLERGIC TO IV DYE? :NO ARE YOU DIABETIC? :NO ANY NEW PROBLEMS WITH YOUR MEDICATIONS? :NO HAVE YOU RECEIVED A VACCINE IN THE PAST 30 DAYS? :NO 2ND COVID 09/29/2020 DO YOU PLAN TO RECEIVE A VACCINE IN THE NEXT 21 DAYS? :NO DO YOU NEED ANY PRESCRIPTION? :NO DO YOU TAKE ANY IMMUNOSUPPRESSIVE MEDICATIONS? :NO IS THERE A CHANCE YOU COULD BE ? :NO ARE YOU BREAST FEEDING? :NO CURRENT MEDICATIONS TAKING CLARITIN 10 MG TABLET 1 TABLET ORALLY ONCE A DAY TAKING SEROQUEL 100 MG TABLET 1 TABLET AT BEDTIME ORALLY ONCE A DAY TAKING BACLOFEN 20 MG TABLET 1 TABLET WITH FOOD OR MILK ORALLY THREE TIMES A DAY TAKING REMERON 15 MG TABLET 1 TABLET ORALLY ONCE A DAY TAKING LISINOPRIL 10 MG TABLET 1 TABLET ORALLY ONCE A DAY TAKING CHANTIX 1 TAB ORAL , NOTES: NOT SURE OF DOSE NOT-TAKING TRAZODONE HCL 100 MG TABLET 1 TABLET AT BEDTIME NEEDED ORALLY ONCE A DAY NOT-TAKING IBUPROFEN 800 MG TABLET 1 TABLET WITH FOOD OR MILK NEEDED ORALLY THREE TIMES A DAY NOT-TAKING ESCITALOPRAM OXALATE 20 MG TABLET 0.5 TABLET ORALLY ONCE A DAY NOT-TAKING HYDROXYZINE HCL 50 MG TABLET 1 TABLET NEEDED ORALLY TID NEEDED NOT-TAKING IBUPROFEN 200 MG TABLET 1 TABLET WITH FOOD OR MILK NEEDED ORALLY THREE TIMES A DAY MEDICATION LIST REVIEWED AND RECONCILED WITH THE PATIENT PAST MEDICAL HISTORY DEPRESSION/ANXIETY INSOMNIA ASTHMA LOW BACK PAIN ALLERGIES SEASONALE: RUNNY NOSE - ALLERGY SOCIAL HISTORY GENERAL: TOBACCO USE ARE YOU A:CURRENT SMOKER ARE YOU INTERESTED IN QUITTING?THINKING ABOUT QUITTING COUNSELED THE PATIENT ON SMOKING CESSATION, EDUCATION [id number]/21/2021 HOW MANY CIGARETTES A DAY DO YOU SMOKE?6-10 HOW SOON AFTER YOU WAKE UP DO YOU SMOKE YOUR FIRST CIGARETTE?AFTER 60 MIN HOW OFTEN DO YOU SMOKE CIGARETTES?EVERY DAY PATIENT COUNSELED ON THE DANGERS OF TOBACCO USE AND URGED TO QUIT:09/10/2020 SMOKING CESSATION INFORMATION GIVEN09/07/2020 VAPORNO E-CIGARETTENO LATEX QUESTIONNAIRE LATEX ALLERGY : HAVE YOU EVER DEVELOPED ANY TYPE OF REACTION AFTER HANDLING LATEX PRODUCTS SUCH RUBBER GLOVES, CONDOMS, DIAPHRAGMS, BALLOONS, SOCKS, OR UNDERWEAR?NO LATEX ALLERGY : HAVE YOU EVER DEVELOPED ANY TYPE OF REACTION DURING OR AFTER DENTAL APPOINTMENT, VAGINAL/RECTAL EXAMINATION, SURGICAL PROCEDURE, OR ANY OTHER EXPOSURE?NO LATEX RISK : HAVE YOU EVER HAD ANY DIFFICULTY BREATHING OR HIVES AFTER EATING OR HANDLING ANY FRUITS, OR VEGETABLES; SUCH KIWI, BANANAS, STONE FRUITS, OR CHESTNUTSNO LATEX RISK : DO YOU HAVE A PREVIOUS PERSONAL HISTORY OF MORE THAN NINE SURGERIES, SPINA BIFIDA, OR REPEATED CATHERIZATIONS? NO LATEX RISK : ARE YOU FREQUENTLY EXPOSED TO LATEX PRODUCTS IN YOUR OCCUPATION?NO DATE ASKED : 10/10/2020 ALCOHOL USE: NO. ALCOHOL SCREENING DID YOU HAVE A DRINK CONTAINING ALCOHOL IN THE PAST YEAR?NO POINTS0 INTERPRETATIONNEGATIVE RECREATIONAL DRUG USE DRUG USE?NO CAFFEINE CAFFEINE USE?YES 2 SODAS DAILY SEXUAL HX HAD SEX IN THE LAST 12 MONTHS (VAGINAL, ORAL, OR ANAL)?YES WITHMEN ONLY PREVENTION STRATEGIES DISCUSSED:OTHER USE PROTECTION?YES HOW OFTEN?SOME OF THE TIME LMP:09/07/17 HAVE YOU EVER HAD AN STD?NO HIV / HEP-C SCREENING HIV TEST OFFERED TO PATIENT:YES DATE OFFERED:09/25/2017 TEST ACCEPTED:YES BROCHURE PROVIDED TO PATIENTYES PENTECOSTALISM [id number] NONE LANGUAGE LANGUAGES SPOKEN:FIJIAN EDUCATION LEVEL OF EDUCATION:HIGH SCHOOL LEARNING BARRIERS / SPECIAL NEEDS CHANGE FROM LAST VISIT?NO BARRIERS TO LEARNING?YES HAS DIFFICULTY WITH COMPREHENSION PER PATIENT. COMMENTSDOCUMENTED IN NOTES SECTION> HEARING IMPAIRED?NO VISION IMPAIRED?YES :CORRECTIVE LENSES COGNITIVELY IMPAIRED?YES :MENTAL RETARDATION READINESS TO LEARN?YES LEARNING PREFERENCES?YES LEARNING CAPABILITIES PRESENT?YES EMOTIONAL BARRIERS?NO SPECIAL DEVICES?NO MINERAL WOOL INSULATION SUPERVISOR NEEDED?NO DOMESTIC VIOLENCE STATUS:SINGLE DO YOU FEEL SAFE IN YOUR ENVIRONMENT?YES OCCUPATION: DIABLED- MARITAL STATUS: SINGLE. OTHERS AT HOME: EX PARTNER, NOW ROOM MATES. - PFS REFERRAL NEEDED?NO CLERGY REFERRAL NEEDED?NO PUBLIC HEALTH REFERRAL NEEDED?NO WAS THE PROVIDER NOTIFIED OF ANY PERTINENT INFO?YES HAS THE PATIENT BEEN EDUCATED REGARDING HIS/HER PLAN OF CARE?YES HAS THE PATIENT BEEN EDUCATED REGARDING PAIN, THE RISK FOR PAIN, THE IMPORTANCE OF EFFECTIVE PAIN MANAGEMENT, AND THE PAIN ASSESSMENT PROCESS?YES ADVANCE DIRECTIVE ADVANCE DIRECTIVE DISCUSSED WITH PATIENT:YES DOES NOT HAVE ADVANCED DIRECTIVES AT THIS TIME. PATIENT GIVEN INFORMATION AND PATIENT WILL TAKE HOME TO REVIEW. REVIEW OF SYSTEMS CONSTITUTIONAL: ANY RECENT FEVER NO . CHILLS NO . WEIGHT CHANGE OF UNKNOWN REASONS NO . GASTROENTEROLOGY: NEW UNEXPLAINABLE CHANGES IN BOWEL CONTROL NO . CONSTIPATION NO . GENITOURINARY: ANY NEW CHANGE IN BLADDER CONTROL? NO . NEUROLOGY: NEW ONSET DIZZINESS OR NEUROLOGICAL CHANGES NOT MENTIONED NO . NEW NUMBNESS OR PAIN PATTERNS NOT MENTIONED AND PERTINENT TO TODAY'S VISIT NO . CARDIOLOGY: NEW CHEST PRESSURE NO . PATIENT DENIES NO . RESPIRATORY: UNEXPLAINABLE COUGH NO . NEW SHORTNESS OF BREATH NO . VITAL SIGNS WT 233 LBS, HT 64 IN, BMI 39.99 INDEX, BP 121/82 MM HG, HR 103 /MIN, RR 18 /MIN, TEMP 97.3 F, OXYGEN SAT % 97%, SAFE IN ENV? (Y/N) YEST.LORRAINE PARKER. EXAMINATION GENERAL EXAMINATION: GENERALNO ACUTE DISTRESS, WELL NOURISHED AND HYDRATED. PSYCHAPPROPRIATE MOOD AND AFFECT . LUNGS:CLEAR TO AUSCULTATION BILATERALLY, NO WHEEZES, RHONCHI, RALES. HEART:NO MURMURS, REGULAR RATE AND RHYTHM. ASSESSMENTS OTHER CHRONIC PAIN - G89.29 (PRIMARY) TREATMENT OTHER CHRONIC PAIN START CELEBREX CAPSULE, 100 MG, 1 CAPSULE WITH FOOD, ORALLY, ONCE A DAY, 30 DAY(S), 30 PAIN PROCEDURE LOGDATE OF PROCEDURE1PROCEDURE:BILATERAL DIAGNOSTIC LUMBAR FACET BLOCK #1 L4-L5,L5-W4IGAZAJ OF PRE SEDATE0/0RESULT:GREATER THAN 50% RELIEF X 6 HOURS NOTES: 35-YEAR-OLD FEMALE IN FOR POST BILATERAL DIAGNOSTIC LUMBAR FACET BLOCK FOLLOW-UP. GIVEN PRESENTING SYMPTOMS RECOMMEND STARTING CELEBREX AND ORDERING LUMBAR DIAGNOSTIC FACET BLOCK #2. PATIENT HAS EXPRESSED UNDERSTANDING OF AND WAS IN AGREEMENT WITH TREATMENT PLAN. GIVEN TIME TO ASK QUESTIONS AND EXPRESS CONCERNS. PRINTED AND REVIEWED PRE PROCEDURE TEACHING, PATIENT VERBALIZED UNDERSTANDING. ASLO PRINTED NEW MEDICATION CELEBREX INFORMATION FOR PATIENT [place] PARKER. DISPOSITION & COMMUNICATION FOLLOW UP POST PROCEDURE (REASON: LEFT DIAGNOSTIC LUMBAR FACET BLOCK #2 L4-L5, L5-S1) ELECTRONICALLY SIGNED BY MARY JO POTTER ON 10/11/2020 AT 10:01 AM EDT DISCLAIMER : THIS IS A VISIT SUMMARY EXTRACTED FROM THE SMS [employer] CHART. IT IS NOT A COPY OF THE SMS [employer] PROGRESS NOTE. GENNA
== END ==
LOC: M PAIN 14:45
PROVIDERS: ATTEND Family Medicine
DX: G89.29 Other chronic pain (principal); G47.00 Insomnia, unspecified; J45.909 Unspecified asthma, uncomplicated; F17.210 Nicotine dependence, cigarettes, uncomplicated; Z86.59 Personal history of other mental and behavioral disorders; Z79.899 Other long term (current) drug therapy

== ENCOUNTER → 2020-10-24 | Outpatient (CLI) | payer OTHER | LOC: M LABSMTC 11:27 | PROVIDERS: ATTEND Anesthesiology | DX: Z11.52 Encounter for screening for COVID-19 (principal) ==

== ENCOUNTER → 2020-11-07 | Outpatient (CLI) | payer OTHER | LOC: M LABSMTC 14:01 | PROVIDERS: ATTEND Anesthesiology | DX: Z20.822 Contact with and (suspected) exposure to COVID-19 (principal) ==

== ENCOUNTER → 2020-11-14 | Outpatient (CLI) | payer OTHER ==
--- NOTE | 2020-11-16 04:21 | ECWPNPC ---
PATIENT NAME: ASHLEY DANIEL : 1985 GENDER: FEMALE VISIT DATE: 11/14/2020 DISCHARGE DATE: 11/14/20 1505 VISIT LOCKED DATE TIME: PHYSICIAN: JOHNIE MARTÍNEZ PHYSICIAN PAGER NO: INACTIVE RESOURCE: JOHNIE MARTÍNEZ REASON FOR APPOINTMENT 1. DISCUSS PROCEDURES/CARE PLAN HISTORY OF PRESENT ILLNESS PAIN CENTER INTAKE QUESTIONS: DO YOU HAVE A HISTORY OF MRSA? :NO DO YOU TAKE A BLOOD THINNERS? :NO DO YOU HAVE ANY BLEEDING DISORDERS? :NO ANY NEW NUMBNESS OR WEAKNESS IN YOUR LEGS OR ARMS? :NO ANY PACEMAKER,DEFIBRILLATOR, OR DORSAL COLUMN STIMULATOR? :NO DO YOU HAVE ANY RASHES OR OPEN SORES? :NO ARE YOU ALLERGIC TO IV DYE? :NO ARE YOU DIABETIC? :NO ANY NEW PROBLEMS WITH YOUR MEDICATIONS? :NO HAVE YOU RECEIVED A VACCINE IN THE PAST 30 DAYS? :NO DO YOU PLAN TO RECEIVE A VACCINE IN THE NEXT 21 DAYS? :NO DO YOU NEED ANY PRESCRIPTION? :NO DO YOU TAKE ANY IMMUNOSUPPRESSIVE MEDICATIONS? :NO DO YOU HAVE ANY KIDNEY OR LIVER DISEASE? :NO IS THERE A CHANCE YOU COULD BE ? :NO ARE YOU BREAST FEEDING? :NO GENERAL: HPI 35-YEAR-OLD FEMALE IN FOR CHRONIC PAIN FOLLOW-UP. SHE RATES HER PAIN CURRENTLY AT A 10 OUT OF 10 AND DESCRIBES IT CONTINUOUS, AND SHARP. PATIENT WAS SCHEDULED TO HAVE A DIAGNOSTIC FACET BLOCK PERFORMED HOWEVER THERE IS A TRANSPORTATION ISSUE AND SHE HAD TO CANCEL SAID APPOINTMENT.. -. FALL RISK SCREENING: SCREENING : NO FALLS REPORTED IN THE LAST YEAR. PAIN SCREENING: PATIENT HAS A COMPLAINT OF ACUTE OR CHRONIC PAIN :YES LOCATION OF PAIN:MID BACK, LOW BACK INTENSITY OF PAIN (SCALE OF 1 TO 10):10 WHAT DOES YOUR PAIN FEEL LIKE:CONTINOUS, SHARP NURSING NOTE: -. CURRENT MEDICATIONS TAKING CELEBREX 100 MG CAPSULE 1 CAPSULE WITH FOOD ORALLY ONCE A DAY TAKING CLARITIN 10 MG TABLET 1 TABLET ORALLY ONCE A DAY TAKING SEROQUEL 100 MG TABLET 1 TABLET AT BEDTIME ORALLY ONCE A DAY TAKING REMERON 15 MG TABLET 1 TABLET ORALLY ONCE A DAY TAKING LISINOPRIL 10 MG TABLET 1 TABLET ORALLY ONCE A DAY TAKING CHANTIX 1 TAB ORAL , NOTES: NOT SURE OF DOSE TAKING BACLOFEN 20 MG TABLET 1 TABLET WITH FOOD OR MILK ORALLY THREE TIMES A DAY NOT-TAKING TRAZODONE HCL 100 MG TABLET 1 TABLET AT BEDTIME NEEDED ORALLY ONCE A DAY NOT-TAKING IBUPROFEN 800 MG TABLET 1 TABLET WITH FOOD OR MILK NEEDED ORALLY THREE TIMES A DAY NOT-TAKING ESCITALOPRAM OXALATE 20 MG TABLET 0.5 TABLET ORALLY ONCE A DAY NOT-TAKING HYDROXYZINE HCL 50 MG TABLET 1 TABLET NEEDED ORALLY TID NEEDED NOT-TAKING IBUPROFEN 200 MG TABLET 1 TABLET WITH FOOD OR MILK NEEDED ORALLY THREE TIMES A DAY MEDICATION LIST REVIEWED AND RECONCILED WITH THE PATIENT PAST MEDICAL HISTORY DEPRESSION/ANXIETY INSOMNIA ASTHMA LOW BACK PAIN ALLERGIES SEASONALE: RUNNY NOSE - ALLERGY SURGICAL HISTORY TUBAL - SYR 2015 REVIEW OF SYSTEMS CONSTITUTIONAL: ANY RECENT FEVER NO . CHILLS NO . WEIGHT CHANGE OF UNKNOWN REASONS NO . GASTROENTEROLOGY: NEW UNEXPLAINABLE CHANGES IN BOWEL CONTROL NO . CONSTIPATION NO . GENITOURINARY: ANY NEW CHANGE IN BLADDER CONTROL? NO . NEUROLOGY: NEW ONSET DIZZINESS OR NEUROLOGICAL CHANGES NOT MENTIONED NO . NEW NUMBNESS OR PAIN PATTERNS NOT MENTIONED AND PERTINENT TO TODAY'S VISIT NO . CARDIOLOGY: NEW CHEST PRESSURE NO . PATIENT DENIES NO . RESPIRATORY: UNEXPLAINABLE COUGH NO . NEW SHORTNESS OF BREATH NO . VITAL SIGNS WT 239 LBS, HT 64 IN, BMI 41.02 INDEX, BP 148/75 MM HG, HR 95 /MIN, RR 18 /MIN, TEMP 97.0 F, OXYGEN SAT % 98%, SAFE IN ENV? (Y/N) YES, NA INITIALS SC 14:31, REVIEWED BY: ANUSHA. EXAMINATION GENERAL EXAMINATION: GENERALNO ACUTE DISTRESS, WELL NOURISHED AND HYDRATED. PSYCHAPPROPRIATE MOOD AND AFFECT . LUNGS:CLEAR TO AUSCULTATION BILATERALLY, NO WHEEZES, RHONCHI, RALES. HEART:NO MURMURS, REGULAR RATE AND RHYTHM. 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 GIVEN PRESENTING SYMPTOMS RECOMMEND RIGHT-SIDED DIAGNOSTIC LUMBAR FACET BLOCK #2 L4-L5 L5-S1 WITH POST PROCEDURAL FOLLOW-UP. PATIENT HAS EXPRESSED UNDERSTANDING OF AND WAS IN AGREEMENT WITH TREATMENT PLAN. GIVEN TIME TO ASK QUESTIONS AND EXPRESS CONCERNS. PROCEDURE CODES FA211 ESTABILISHED PATIENT [facility] FACILITY CHARGE DISPOSITION & COMMUNICATION FOLLOW UP POST PROCEDURE (REASON: RIGHT DIAGNOSTIC LUMBAR FACET BLOCK #2 L4-L5, L5-S1) ELECTRONICALLY SIGNED BY MARY JO POTTER ON 11/15/2020 AT 08:56 AM EDT DISCLAIMER : THIS IS A VISIT SUMMARY EXTRACTED FROM THE [employer] CHART. IT IS NOT A COPY OF THE [employer] PROGRESS NOTE. GENNA
== END ==
LOC: M PAIN 14:15
PROVIDERS: ATTEND Family Medicine
DX: M47.817 Spondylosis without myelopathy or radiculopathy, lumbosacral region (principal); F32.9 Major depressive disorder, single episode, unspecified; F41.9 Anxiety disorder, unspecified; G47.00 Insomnia, unspecified; J45.909 Unspecified asthma, uncomplicated; M54.5 Low back pain; Z79.899 Other long term (current) drug therapy

== ENCOUNTER → 2020-12-14 | Outpatient (CLI) | payer OTHER | LOC: M LABSMTC 11:52 | PROVIDERS: ATTEND Anesthesiology | DX: Z01.812 Encounter for preprocedural laboratory examination (principal); Z20.822 Contact with and (suspected) exposure to COVID-19 ==

== ENCOUNTER → 2020-12-19 | Outpatient (CLI) | payer OTHER ==
[~2020-12-19] MED LIST changes: +BUPIVACAINE HCL 0.25% 30ML VIAL As Ordered ONE; +ISOVUE-M 300 61% 15ML VIAL As Ordered ONE; +LIDOCAINE 1% SDV 30ML VIAL As Ordered ONE
--- NOTE | 2020-12-19 14:48 | REP ---
INDICATION: BILAT LFBD. COMPARISON: None. TECHNIQUE: Five views. 46.8 seconds of fluoroscopy time is reported. FINDINGS: A sequence of 5 last image hold fluoroscopically obtained spot radiograph(s) of the lumbar spine document(s) needle position(s) and contrast injection associated with injection procedure. IMPRESSION: Procedural imaging. <Electronically signed by Miguel Granado > 12/19/20 3933
--- NOTE | 2020-12-20 02:12 | ECWPNPC ---
PATIENT NAME: ASHLEY DANIEL : 1985 GENDER: FEMALE VISIT DATE: 12/19/2020 DISCHARGE DATE: 12/19/20 1436 VISIT LOCKED DATE TIME: PHYSICIAN: KEVIN POWELL MD PHYSICIAN PAGER NO: INACTIVE RESOURCE: KEVIN POWELL MD REASON FOR APPOINTMENT 1. BILATERAL DIAGNOSTIC LUMBAR FACET BLOCK #2 L4-L5, L5-S1 HISTORY OF PRESENT ILLNESS GENERAL: 35-YEAR-OLD FEMALE PATIENT WITH A HISTORY OF CHRONIC LOW BACK PAIN. THE PATIENT DESCRIBES THE PAIN ACHING AND SEVERE WITH A PAIN SCORE RANGING FROM 7-10/10 . WE DID A DIAGNOSTIC TEST BILATERAL AND THE PAIN WENT DOWN MORE THAN 80%. THE PAIN HAS COME BACK. THE PAIN IS AFFECTING HER ABILITY TO DO ACTIVITIES SUCH CLEANING HER HOUSE AND GROCERY SHOPPING. FALL RISK SCREENING: SCREENING : NO FALLS REPORTED IN THE LAST YEAR. PAIN SCREENING: PATIENT HAS A COMPLAINT OF ACUTE OR CHRONIC PAIN :YES LOCATION OF PAIN:UPPER BACK, LOW BACK INTENSITY OF PAIN (SCALE OF 1 TO 10):8 WHAT DOES YOUR PAIN FEEL LIKE:ACHING, SHARP, THROBBING DURATION:CONTINOUS, CONSTANT PAIN IS INCREASED BY:ACTIVITIES PAIN IS DECREASED BY:USE OF PAIN MEDICATIONS NURSING NOTE: -. PAIN CENTER INTAKE QUESTIONS: DO YOU HAVE A HISTORY OF MRSA? :NO DO YOU TAKE A BLOOD THINNERS? :NO DO YOU HAVE ANY BLEEDING DISORDERS? :NO ANY NEW NUMBNESS OR WEAKNESS IN YOUR LEGS OR ARMS? :NO ANY PACEMAKER,DEFIBRILLATOR, OR DORSAL COLUMN STIMULATOR? :NO DO YOU HAVE ANY RASHES OR OPEN SORES? :NO ARE YOU ALLERGIC TO IV DYE? :NO ARE YOU DIABETIC? :NO ANY NEW PROBLEMS WITH YOUR MEDICATIONS? :NO HAVE YOU RECEIVED A VACCINE IN THE PAST 30 DAYS? :NO DO YOU PLAN TO RECEIVE A VACCINE IN THE NEXT 21 DAYS? :NO DO YOU TAKE ANY IMMUNOSUPPRESSIVE MEDICATIONS? :NO ANY HISTORY OF SEIZURES? :NO ANY HISTORY OF CARDIAC ISSUES OR EVENTS? :NO DO YOU HAVE ANY KIDNEY OR LIVER DISEASE? :NO DO YOU HAVE SLEEP APNEA? :YES DO YOU WEAR A CPAP?YES ANY RECENT HEAD INJURY? :NO DO YOU HAVE ANY NEW INFECTIONS? :NO IS THERE A CHANCE YOU COULD BE ? :NO ARE YOU BREAST FEEDING? :NO WHEN DID YOU LAST EAT? : 12/18/20 WHEN DID YOU LAST DRINK? : 12/19/20 0830 WHAT DID YOU LAST DRINK? : SPRITE NAME OF PERSON DRIVING YOU HOME? : [employer] DO YOU HAVE ANY OTHER QUESTIONS OR CONCERNS? : - CURRENT MEDICATIONS TAKING CELEBREX 100 MG CAPSULE 1 CAPSULE WITH FOOD ORALLY ONCE A DAY TAKING SEROQUEL 100 MG TABLET 1 TABLET AT BEDTIME ORALLY ONCE A DAY TAKING REMERON 15 MG TABLET 1 TABLET ORALLY ONCE A DAY TAKING LISINOPRIL 10 MG TABLET 1 TABLET ORALLY ONCE A DAY, NOTES: 12/18/20 TAKING BACLOFEN 20 MG TABLET 1 TABLET WITH FOOD OR MILK ORALLY THREE TIMES A DAY, NOTES: 12/18/20 TAKING FEXOFENADINE HCL 180 MG TABLET 1 TABLET ORALLY ONCE A DAY NOT-TAKING CLARITIN 10 MG TABLET 1 TABLET ORALLY ONCE A DAY NOT-TAKING CHANTIX 1 TAB ORAL , NOTES: NOT SURE OF DOSE NOT-TAKING TRAZODONE HCL 100 MG TABLET 1 TABLET AT BEDTIME NEEDED ORALLY ONCE A DAY NOT-TAKING IBUPROFEN 800 MG TABLET 1 TABLET WITH FOOD OR MILK NEEDED ORALLY THREE TIMES A DAY NOT-TAKING ESCITALOPRAM OXALATE 20 MG TABLET 0.5 TABLET ORALLY ONCE A DAY NOT-TAKING HYDROXYZINE HCL 50 MG TABLET 1 TABLET NEEDED ORALLY TID NEEDED NOT-TAKING IBUPROFEN 200 MG TABLET 1 TABLET WITH FOOD OR MILK NEEDED ORALLY THREE TIMES A DAY MEDICATION LIST REVIEWED AND RECONCILED WITH THE PATIENT PAST MEDICAL HISTORY DEPRESSION/ANXIETY INSOMNIA ASTHMA LOW BACK PAIN ALLERGIES SEASONALE: RUNNY NOSE - ALLERGY SOCIAL HISTORY GENERAL: TOBACCO USE ARE YOU A:CURRENT SMOKER HOW OFTEN DO YOU SMOKE CIGARETTES?EVERY DAY HOW SOON AFTER YOU WAKE UP DO YOU SMOKE YOUR FIRST CIGARETTE?AFTER 60 MIN HOW MANY CIGARETTES A DAY DO YOU SMOKE?6-10 ARE YOU INTERESTED IN QUITTING?THINKING ABOUT QUITTING PATIENT COUNSELED ON THE DANGERS OF TOBACCO USE AND URGED TO QUIT:10/26/2020 COUNSELED THE PATIENT ON SMOKING CESSATION, EDUCATION MOPUUIAR62/07/2021 VAPORNO E-CIGARETTENO SMOKING CESSATION INFORMATION GIVEN10/26/2020 LATEX QUESTIONNAIRE LATEX ALLERGY : HAVE YOU EVER DEVELOPED ANY TYPE OF REACTION AFTER HANDLING LATEX PRODUCTS SUCH RUBBER GLOVES, CONDOMS, DIAPHRAGMS, BALLOONS, SOCKS, OR UNDERWEAR?NO LATEX ALLERGY : HAVE YOU EVER DEVELOPED ANY TYPE OF REACTION DURING OR AFTER DENTAL APPOINTMENT, VAGINAL/RECTAL EXAMINATION, SURGICAL PROCEDURE, OR ANY OTHER EXPOSURE?NO DATE ASKED : 10/10/2020 LATEX RISK : HAVE YOU EVER HAD ANY DIFFICULTY BREATHING OR HIVES AFTER EATING OR HANDLING ANY FRUITS, OR VEGETABLES; SUCH KIWI, BANANAS, STONE FRUITS, OR CHESTNUTSNO LATEX RISK : DO YOU HAVE A PREVIOUS PERSONAL HISTORY OF MORE THAN NINE SURGERIES, SPINA BIFIDA, OR REPEATED CATHERIZATIONS? NO LATEX RISK : ARE YOU FREQUENTLY EXPOSED TO LATEX PRODUCTS IN YOUR OCCUPATION?NO ALCOHOL USE: NO. ALCOHOL SCREENING DID YOU HAVE A DRINK CONTAINING ALCOHOL IN THE PAST YEAR?NO POINTS0 INTERPRETATIONNEGATIVE RECREATIONAL DRUG USE DRUG USE?NO CAFFEINE CAFFEINE USE?YES 2 SODAS DAILY SEXUAL HX HAD SEX IN THE LAST 12 MONTHS (VAGINAL, ORAL, OR ANAL)?YES WITHMEN ONLY PREVENTION STRATEGIES DISCUSSED:OTHER USE PROTECTION?YES HOW OFTEN?SOME OF THE TIME LMP:09/07/17 HAVE YOU EVER HAD AN STD?NO HIV / HEP-C SCREENING HIV TEST OFFERED TO PATIENT:YES DATE OFFERED:09/25/2017 TEST ACCEPTED:YES BROCHURE PROVIDED TO PATIENTYES ISLAM [id number] NONE LANGUAGE LANGUAGES SPOKEN:DIVEHI EDUCATION LEVEL OF EDUCATION:HIGH SCHOOL LEARNING BARRIERS / SPECIAL NEEDS CHANGE FROM LAST VISIT?NO BARRIERS TO LEARNING?YES HAS DIFFICULTY WITH COMPREHENSION PER PATIENT. 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 OTHERS AT HOME: EX PARTNER, NOW ROOM MATES. - PFS REFERRAL NEEDED?NO CLERGY REFERRAL NEEDED?NO PUBLIC HEALTH REFERRAL NEEDED?NO WAS THE PROVIDER NOTIFIED OF ANY PERTINENT INFO?YES HAS THE PATIENT BEEN EDUCATED REGARDING HIS/HER PLAN OF CARE?YES HAS THE PATIENT BEEN EDUCATED REGARDING PAIN, THE RISK FOR PAIN, THE IMPORTANCE OF EFFECTIVE PAIN MANAGEMENT, AND THE PAIN ASSESSMENT PROCESS?YES ADVANCE DIRECTIVE ADVANCE DIRECTIVE DISCUSSED WITH PATIENT:YES DOES NOT HAVE ADVANCED DIRECTIVES AT THIS TIME. PATIENT GIVEN INFORMATION AND PATIENT WILL TAKE HOME TO REVIEW. REVIEW OF SYSTEMS CONSTITUTIONAL: ANY RECENT FEVER NO . CHILLS NO . WEIGHT CHANGE OF UNKNOWN REASONS NO . GASTROENTEROLOGY: NEW UNEXPLAINABLE CHANGES IN BOWEL CONTROL NO . CONSTIPATION NO . GENITOURINARY: ANY NEW CHANGE IN BLADDER CONTROL? NO . NEUROLOGY: NEW ONSET DIZZINESS OR NEUROLOGICAL CHANGES NOT MENTIONED NO . NEW NUMBNESS OR PAIN PATTERNS NOT MENTIONED AND PERTINENT TO TODAY'S VISIT NO . CARDIOLOGY: NEW CHEST PRESSURE NO . PATIENT DENIES NO . RESPIRATORY: UNEXPLAINABLE COUGH NO . NEW SHORTNESS OF BREATH NO . VITAL SIGNS WT 239 LBS, HT 64 IN, BMI 41.02 INDEX, BP 144/78 MM HG, HR 93 /MIN, RR 18 /MIN, TEMP 97.7 F, OXYGEN SAT % 98%, SAFE IN ENV? (Y/N) Y, NA INITIALS , REVIEWED BY: EM. EXAMINATION GENERAL: THE PATIENT IS ALERT, ORIENTED TIMES THREE AND COOPERATIVE. LUNGS ARE CLEAR TO AUSCULTATION. HEART SHOWS REGULAR RHYTHM, NO MURMURS AND NO GALLOPS. THERE IS TENDERNESS IN THE PARASPINAL MUSCLE GROUP IN THE AREA OF THE FACET JOINTS. MRI OF THE LUMBAR SPINE DATED 07/26/2000 IS SHOWING SOME FACET ARTHROPATHY CHANGES. 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 DANIEL. WE AGREE ON DOING A BILATERAL DIAGNOSTIC LUMBAR FACET BLOCK #2 L4-L5, L5-S1. I AM LOOKING FOR MORE THAN 80% REDUCTION IN THE PAIN. THE PATIENT CURRENTLY HAS A PAIN SCORE OF 10/10 SO IT NEEDS TO GO DOWN TO A 1 OR A 2 IN ORDER TO MOVE FORWARD WITH RADIOFREQUENCY. I, MANDI MENA, DOCUMENTED THE ABOVE INFORMATION ACTING A SCRIBE FOR DR. POWELL. I HAVE REVIEWED THE ABOVE DOCUMENT, WRITTEN BY MANDI MENA, PHARMACOLOGY PROFESSOR, AND I VERIFY THAT IT IS ACCURATE. OTHERS NOTES: PAT DONE 12/14/2020. EM. PROCEDURES PAIN NURSING RECORD PROCEDURE IN ROOM 1345, PHYSICIAN IN ROOM 1401, START 1406, FINISH 1416, PHYSICIAN OUT OF ROOM 1417, OUT OF ROOM 1420, ECG NORMAL SINUS, PATIENT SHIELDED YES, SAFETY STRAP YES, PREP CHLOROPREP Derick REY RN, DRESSING TEGADERM DR. POWELL LOC: 1. ALERT, ORIENTED, MINE REY 12/19/2020 2:05:53 PM > RESP: 1. REGULAR, NO DYSPNEA, MINE REY 12/19/2020 2:05:57 PM > COLOR: 1. PINK, MINE REY 12/19/2020 2:07:17 PM > SKIN: 1. WARM, DRY, MINE REY 12/19/2020 2:07:20 PM > POSITION: 1. PRONE, ANGELINE REYBETH 12/19/2020 2:07:24 PM > VITALS: 124/82, 87, 16, 100%, ANGELINE REYBETH 12/19/2020 2:02:24 PM > 137/88, 89, 16, 100%, ANGELINE REYBETH 12/19/2020 2:15:00 PM > 113/73, 73, 16, 100%, ANGELINE REYBETH 12/19/2020 2:20:25 PM > 130/85, 95, 16, 99%, ANGELINE REYBETH 12/19/2020 2:30:52 PM > NOTES Derick REY RN, CANDIDOMINE 12/19/2020 1:12:09 PM > COMPLETION OF PROCEDURE APPOINTMENT: POST PAIN 2, DRESSING SITE DRY AND INTACT, IV N/A, GAIT STEADY, TEACHING COMPLETED, PATIENT ACKNOWLEDGES UNDERSTANDING YES, PROCEDURE APPOINTMENT COMPLETED AT 1435 PN LUMBAR FACET BLOCK DIAGNOSTIC PRE PROCEDURE DIAGNOSIS LUMBAR SPONDYLOSIS, LUMBOSACRAL SPONDYLOSIS POST PROCEDURE DIAGNOSIS LUMBAR SPONDYLOSIS, LUMBOSACRAL SPONDYLOSIS PROCEDURE BILATERAL L4-L5 AND BILATERAL L5-S1 FACET BLOCK DIAGNOSTIC NUMBER [address] KEVIN POWELL FERRY CAPTAIN NONE ANESTHESIA LOCAL PRE PROCEDURE NOTE THE PATIENT WITH HISTORY OF CHRONIC LOW BACK PAIN. I EVALUATED THE PATIENT AND REVIEWED THE CHART. I WENT OVER THE RISKS, ALTERNATIVES, AND BENEFITS ASSOCIATED WITH THIS PROCEDURE. THE PATIENT WOULD LIKE TO PROCEED AND GAVE CONSENT TO PERFORM THE PROCEDURE. AGREED WITH THE PATIENT, WE ARE DOING THIS PROCEDURE TO DETERMINE IF THE PATIENT IS A CANDIDATE FOR A RADIOFREQUENCY ABLATION OF THE FACETS JOINTS. THE PATIENT DENIES UNEXPLAINABLE WEIGHT LOSS, FEVER, CHILLS, OR NEW CHANGES IN URINARY OR BOWEL CONTROL. THE PATIENT IS COVID-19 NEGATIVE. DESCRIPTION OF PROCEDURE THE PATIENT WAS BROUGHT TO THE PROCEDURE ROOM AND PLACED IN THE PRONE POSITION. THE LUMBOSACRAL AREA WAS CLEANED WITH CHLORAPREP SOLUTION AND DRAPED ASEPTICALLY. THE PROCEDURE WAS DONE UNDER STERILE CONDITIONS. A TIMEOUT WAS PERFORMED WHERE THE CONSENTED SITE WAS VERIFIED WITH EVERYONE IN THE ROOM. UNDER FLUOROSCOPIC GUIDANCE, TARGETS WERE SELECTED AT THE INTERSECTION OF THE RIGHT AND LEFT TRANSVERSE PROCESS OF L4, L5 AND ALA OF S1 WITH ITS RESPECTIVE SUPERIOR ARTICULAR PROCESS WITH A TARGET OF THE MEDIAN BRANCHES OF L3, L4 AND THE DORSAL RAMI OF L5. I CONFIRMED AGAIN THE SITE OF TARGET. LIDOCAINE WAS USED TO NUMB THE SKIN AND THE SUBCUTANEOUS TISSUE BELOW IT. SPINAL NEEDLE, 22-GAUGE, WAS ADVANCED UNDER FLUOROSCOPIC GUIDANCE AND FOLLOWING PATIENT FEEDBACK UNTIL THE TARGETS WERE REACHED. POSITION OF THE NEEDLES WAS VERIFIED WITH AP AND LATERAL VIEWS. AFTER PROPER POSITION OF THE NEEDLES WAS ACHIEVED, ISOVUE-M DYE 30%, 0.1 ML, WAS INJECTED AT EACH SITE SHOWING ADEQUATE SPREAD OF THE DYE. THEN, A SOLUTION OF 0.4 ML OF BUPIVACAINE 0.25% WAS INJECTED AT EACH SITE. THE MEDICATIONS WERE VERIFIED WITH THE NURSE. THERE WAS NO EVIDENCE OF BLOOD, PARESTHESIA OR CEREBROSPINAL FLUID DURING THE PROCEDURE. THE PATIENT WAS SENT TO THE RECOVERY ROOM. THE PATIENT WAS MOVING THE EXTREMITIES AND DOING WELL. THERE WERE NO COMPLICATIONS DURING THE PROCEDURE. ESTIMATED BLOOD LOSS WAS LESS THAN 5 ML. FLUOROSCOPY TIME WAS 46 SECONDS POST PROCEDURE NOTE THE PATIENT WILL DOCUMENT THE PAIN LEVEL AND RESPONSE TO THIS PROCEDURE PER PAIN DIARY. THE PATIENT WILL BE SEEN IN A FOLLOW UP IN THE NEXT FEW WEEKS. FURTHER DETERMINATION FOR THE PATIENT'S CASE WILL BE DONE AT THE NEXT VISIT. INSTRUCTIONS WERE GIVEN, QUESTIONS WERE ANSWERED, AND THE PATIENT EXPRESSED UNDERSTANDING AND AGREED WITH THE PLAN. I, MANDI MENA, DOCUMENTED THE ABOVE INFORMATION ACTING A SCRIBE FOR DR. POWELL. I HAVE REVIEWED THE ABOVE DOCUMENT, WRITTEN BY MANDI MENA, PHARMACOLOGY PROFESSOR, AND I VERIFY THAT IT IS ACCURATE PROCEDURE CODES 27488 INJ PARAVERT F JNT L/S 1 LEV, MODIFIERS: 50 [id number] INJ PARAVERT F JNT L/S 2 LEV, MODIFIERS: 50 DISPOSITION & COMMUNICATION FOLLOW UP FOLLOW UP WITH [employer] (REASON: POST BILATERAL DIAGNOSTIC LUMBAR FACET BLOCK L4-L5, L5-S1) ELECTRONICALLY SIGNED BY KEVIN POWELL MD, MD ON 12/19/2020 AT 04:10 PM EDT DISCLAIMER : THIS IS A VISIT SUMMARY EXTRACTED FROM THE [email or web address] CHART. IT IS NOT A COPY OF THE [email or web address] PROGRESS NOTE. GENNA
== END ==
LOC: M PAIN 11:40
PROVIDERS: ATTEND Anesthesiology
DX: M47.26 Other spondylosis with radiculopathy, lumbar region (principal); F32.9 Major depressive disorder, single episode, unspecified; F41.9 Anxiety disorder, unspecified; G47.00 Insomnia, unspecified; J45.909 Unspecified asthma, uncomplicated; F17.210 Nicotine dependence, cigarettes, uncomplicated; Z79.899 Other long term (current) drug therapy
CPT/HCPCS: 64493; 64494; Q9967

== ENCOUNTER → 2020-12-25 | Outpatient (CLI) | payer OTHER ==
[~2020-12-25] MED LIST changes: -BUPIVACAINE HCL 0.25% 30ML VIAL As Ordered ONE; -ISOVUE-M 300 61% 15ML VIAL As Ordered ONE; -LIDOCAINE 1% SDV 30ML VIAL As Ordered ONE
--- NOTE | 2020-12-28 03:10 | ECWPNPC ---
PATIENT NAME: ASHLEY DANIEL : 1985 GENDER: FEMALE VISIT DATE: 12/25/2020 DISCHARGE DATE: 12/25/20 1345 VISIT LOCKED DATE TIME: PHYSICIAN: JOHNIE MARTÍNEZ PHYSICIAN PAGER NO: INACTIVE RESOURCE: JOHNIE MARTÍNEZ REASON FOR APPOINTMENT 1. POST RIGHT DIAGNOSTIC LUMBAR FACET BLOCK #2 L4-L5, L5-S1 HISTORY OF PRESENT ILLNESS GENERAL: HPI 35-YEAR-OLD FEMALE IN FOR POST RIGHT DIAGNOSTIC LUMBAR FACET BLOCK #2 L4-L5 L5-S1. PATIENT FEELS THE PROCEDURE WAS SUCCESSFUL OVERALL RATING HER PAIN PREPROCEDURE AT A 10 OUT OF 10 AND POSTPROCEDURE AT A 1-2 OUT OF 10. SHE FURTHER STATES THE PROCEDURE CONTINUES TO HELP HER TODAY RATING HER PAIN CURRENTLY AT A 1 OUT OF 10.. -. FALL RISK SCREENING: SCREENING : NO FALLS REPORTED IN THE LAST YEAR. PAIN SCREENING: PATIENT HAS A COMPLAINT OF ACUTE OR CHRONIC PAIN :YES LOCATION OF PAIN:LOW BACK INTENSITY OF PAIN (SCALE OF 1 TO 10):1 WHAT DOES YOUR PAIN FEEL LIKE:ACHING, BURNING, CONTINOUS DURATION:CONTINOUS, CONSTANT, ALL DAY, ONLY WITH SPECIFIC ACTIVITIES PAIN IS INCREASED BY:ACTIVITIES PAIN IS DECREASED BY:SITTING RESTING NURSING NOTE: -. PAIN CENTER INTAKE QUESTIONS: DO YOU HAVE A HISTORY OF MRSA? :NO DO YOU TAKE A BLOOD THINNERS? :NO DO YOU HAVE ANY BLEEDING DISORDERS? :NO ANY NEW NUMBNESS OR WEAKNESS IN YOUR LEGS OR ARMS? :NO ANY PACEMAKER,DEFIBRILLATOR, OR DORSAL COLUMN STIMULATOR? :NO DO YOU HAVE ANY RASHES OR OPEN SORES? :NO ARE YOU ALLERGIC TO IV DYE? :NO ARE YOU DIABETIC? :NO ANY NEW PROBLEMS WITH YOUR MEDICATIONS? :NO HAVE YOU RECEIVED A VACCINE IN THE PAST 30 DAYS? :NO DO YOU PLAN TO RECEIVE A VACCINE IN THE NEXT 21 DAYS? :NO DO YOU NEED ANY PRESCRIPTION? :NO DO YOU TAKE ANY IMMUNOSUPPRESSIVE MEDICATIONS? :NO DO YOU HAVE ANY KIDNEY OR LIVER DISEASE? :NO IS THERE A CHANCE YOU COULD BE ? :NO ARE YOU BREAST FEEDING? :NO CURRENT MEDICATIONS TAKING CELEBREX 100 MG CAPSULE 1 CAPSULE WITH FOOD ORALLY ONCE A DAY TAKING SEROQUEL 100 MG TABLET 1 TABLET AT BEDTIME ORALLY ONCE A DAY TAKING REMERON 15 MG TABLET 1 TABLET ORALLY ONCE A DAY TAKING LISINOPRIL 10 MG TABLET 1 TABLET ORALLY ONCE A DAY TAKING BACLOFEN 20 MG TABLET 1 TABLET WITH FOOD OR MILK ORALLY THREE TIMES A DAY TAKING FEXOFENADINE HCL 180 MG TABLET 1 TABLET ORALLY ONCE A DAY NOT-TAKING CLARITIN 10 MG TABLET 1 TABLET ORALLY ONCE A DAY NOT-TAKING CHANTIX 1 TAB ORAL , NOTES: NOT SURE OF DOSE NOT-TAKING TRAZODONE HCL 100 MG TABLET 1 TABLET AT BEDTIME NEEDED ORALLY ONCE A DAY NOT-TAKING IBUPROFEN 800 MG TABLET 1 TABLET WITH FOOD OR MILK NEEDED ORALLY THREE TIMES A DAY NOT-TAKING ESCITALOPRAM OXALATE 20 MG TABLET 0.5 TABLET ORALLY ONCE A DAY NOT-TAKING HYDROXYZINE HCL 50 MG TABLET 1 TABLET NEEDED ORALLY TID NEEDED NOT-TAKING IBUPROFEN 200 MG TABLET 1 TABLET WITH FOOD OR MILK NEEDED ORALLY THREE TIMES A DAY MEDICATION LIST REVIEWED AND RECONCILED WITH THE PATIENT PAST MEDICAL HISTORY DEPRESSION/ANXIETY INSOMNIA ASTHMA LOW BACK PAIN ALLERGIES SEASONALE: RUNNY NOSE - ALLERGY SOCIAL HISTORY GENERAL: TOBACCO USE ARE YOU A:CURRENT SMOKER ARE YOU INTERESTED IN QUITTING?THINKING ABOUT QUITTING COUNSELED THE PATIENT ON SMOKING CESSATION, EDUCATION [id number]/06/2021 HOW MANY CIGARETTES A DAY DO YOU SMOKE?6-10 HOW SOON AFTER YOU WAKE UP DO YOU SMOKE YOUR FIRST CIGARETTE?AFTER 60 MIN HOW OFTEN DO YOU SMOKE CIGARETTES?EVERY DAY PATIENT COUNSELED ON THE DANGERS OF TOBACCO USE AND URGED TO QUIT:10/26/2020 SMOKING CESSATION INFORMATION GIVEN10/26/2020 VAPORNO E-CIGARETTENO LATEX QUESTIONNAIRE LATEX ALLERGY : HAVE YOU EVER DEVELOPED ANY TYPE OF REACTION AFTER HANDLING LATEX PRODUCTS SUCH RUBBER GLOVES, CONDOMS, DIAPHRAGMS, BALLOONS, SOCKS, OR UNDERWEAR?NO LATEX ALLERGY : HAVE YOU EVER DEVELOPED ANY TYPE OF REACTION DURING OR AFTER DENTAL APPOINTMENT, VAGINAL/RECTAL EXAMINATION, SURGICAL PROCEDURE, OR ANY OTHER EXPOSURE?NO LATEX RISK : HAVE YOU EVER HAD ANY DIFFICULTY BREATHING OR HIVES AFTER EATING OR HANDLING ANY FRUITS, OR VEGETABLES; SUCH KIWI, BANANAS, STONE FRUITS, OR CHESTNUTSNO LATEX RISK : DO YOU HAVE A PREVIOUS PERSONAL HISTORY OF MORE THAN NINE SURGERIES, SPINA BIFIDA, OR REPEATED CATHERIZATIONS? NO LATEX RISK : ARE YOU FREQUENTLY EXPOSED TO LATEX PRODUCTS IN YOUR OCCUPATION?NO DATE ASKED : 12/25/2020 ALCOHOL USE: NO. ALCOHOL SCREENING DID YOU HAVE A DRINK CONTAINING ALCOHOL IN THE PAST YEAR?NO POINTS0 INTERPRETATIONNEGATIVE RECREATIONAL DRUG USE DRUG USE?NO CAFFEINE CAFFEINE USE?YES 2 SODAS DAILY SEXUAL HX HAD SEX IN THE LAST 12 MONTHS (VAGINAL, ORAL, OR ANAL)?YES WITHMEN ONLY PREVENTION STRATEGIES DISCUSSED:OTHER USE PROTECTION?YES HOW OFTEN?SOME OF THE TIME LMP:09/07/17 HAVE YOU EVER HAD AN STD?NO HIV / HEP-C SCREENING HIV TEST OFFERED TO PATIENT:YES DATE OFFERED:09/25/2017 TEST ACCEPTED:YES BROCHURE PROVIDED TO PATIENTYES YARSANI [id number] NONE LANGUAGE LANGUAGES SPOKEN:BELARUSIAN EDUCATION LEVEL OF EDUCATION:HIGH SCHOOL LEARNING BARRIERS / SPECIAL NEEDS CHANGE FROM LAST VISIT?NO BARRIERS TO LEARNING?YES HAS DIFFICULTY WITH COMPREHENSION PER PATIENT. 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 OTHERS AT HOME: EX PARTNER, NOW ROOM MATES. - PFS REFERRAL NEEDED?NO CLERGY REFERRAL NEEDED?NO PUBLIC HEALTH REFERRAL NEEDED?NO WAS THE PROVIDER NOTIFIED OF ANY PERTINENT INFO?YES HAS THE PATIENT BEEN EDUCATED REGARDING HIS/HER PLAN OF CARE?YES HAS THE PATIENT BEEN EDUCATED REGARDING PAIN, THE RISK FOR PAIN, THE IMPORTANCE OF EFFECTIVE PAIN MANAGEMENT, AND THE PAIN ASSESSMENT PROCESS?YES ADVANCE DIRECTIVE ADVANCE DIRECTIVE DISCUSSED WITH PATIENT:YES DOES NOT HAVE ADVANCED DIRECTIVES AT THIS TIME. PATIENT GIVEN INFORMATION AND PATIENT WILL TAKE HOME TO REVIEW. REVIEW OF SYSTEMS CONSTITUTIONAL: ANY RECENT FEVER NO . CHILLS NO . WEIGHT CHANGE OF UNKNOWN REASONS NO . GASTROENTEROLOGY: NEW UNEXPLAINABLE CHANGES IN BOWEL CONTROL NO . CONSTIPATION NO . GENITOURINARY: ANY NEW CHANGE IN BLADDER CONTROL? NO . NEUROLOGY: NEW ONSET DIZZINESS OR NEUROLOGICAL CHANGES NOT MENTIONED NO . NEW NUMBNESS OR PAIN PATTERNS NOT MENTIONED AND PERTINENT TO TODAY'S VISIT NO . CARDIOLOGY: NEW CHEST PRESSURE NO . PATIENT DENIES NO . RESPIRATORY: UNEXPLAINABLE COUGH NO . NEW SHORTNESS OF BREATH NO . VITAL SIGNS WT 236 LBS, HT 64 IN, BMI 40.50 INDEX, BP 125/90 MM HG, HR 102 /MIN, RR 18 /MIN, TEMP 97.8 F, OXYGEN SAT % 100%, SAFE IN ENV? (Y/N) YEST.LORRAINE PARKER. EXAMINATION GENERAL EXAMINATION: GENERALNO ACUTE DISTRESS, WELL NOURISHED AND HYDRATED. PSYCHAPPROPRIATE MOOD AND AFFECT . LUNGS:CLEAR TO AUSCULTATION BILATERALLY, NO WHEEZES, RHONCHI, RALES. HEART:NO MURMURS, REGULAR RATE AND RHYTHM. BACK:PATIENT DOES ENDORSE INCREASED PAIN WITH FACET LOADING. ASSESSMENTS OTHER CHRONIC PAIN - G89.29 (PRIMARY) SPONDYLOSIS WITHOUT MYELOPATHY OR RADICULOPATHY, LUMBOSACRAL REGION - M47.817, RISK: (NULL) TREATMENT OTHER CHRONIC PAIN PAIN PROCEDURE LOGDATE OF PROCEDURE1PROCEDURE:BILATERAL DIAGNOSTIC LUMBAR FACET BLOCK #2 L4-L5,L5-Q3WFQVHW OF PRE SEDATE0/0RESULT:PREPROCEDURE 10 OUT OF 10 POST PROCEDURE 1-2 OUT OF 10. CONTINUES TO HELP HER TODAY. SPONDYLOSIS WITHOUT MYELOPATHY OR RADICULOPATHY, LUMBOSACRAL REGION MED: PAIN NORCO TABLET 5MG/325MG ORALLY HYDROCODONE/ACETAMINOPHEN (ORDERED FOR 01/03/2021) MEDICATION: PAIN VALIUM TAB 5MG ORALLY (DIAZEPAM) (ORDERED FOR 01/03/2021) NOTES: 35-YEAR-OLD FEMALE IN FOR POST DIAGNOSTIC FACET BLOCK FOLLOW-UP. GIVEN PRESENTING SYMPTOMS RECOMMEND RIGHT LUMBAR COOL RADIOFREQUENCY L4-L5 L5-S1 WITH POSTPROCEDURAL FOLLOW-UP. PATIENT HAS EXPRESSED UNDERSTANDING OF AND WAS IN AGREEMENT WITH TREATMENT PLAN. GIVEN TIME TO ASK QUESTIONS AND EXPRESS CONCERNS. PROCEDURE CODES FA211 ESTABILISHED PATIENT [facility] FACILITY CHARGE DISPOSITION & COMMUNICATION FOLLOW UP POST PROCEDURE (REASON: RIGHT COOL RADIO FREQUENCY OF THE LUMBAR SPINE L4-L5,L5-S1) ELECTRONICALLY SIGNED BY MARY JO POTTER ON 12/27/2020 AT 08:27 AM EDT DISCLAIMER : THIS IS A VISIT SUMMARY EXTRACTED FROM THE [employer] CHART. IT IS NOT A COPY OF THE [employer] PROGRESS NOTE. GENNA
== END ==
LOC: M PAIN 14:15
PROVIDERS: ATTEND Family Medicine
DX: G89.29 Other chronic pain (principal); M47.817 Spondylosis without myelopathy or radiculopathy, lumbosacral region; F32.9 Major depressive disorder, single episode, unspecified; F41.9 Anxiety disorder, unspecified; J45.909 Unspecified asthma, uncomplicated; M54.5 Low back pain; F17.210 Nicotine dependence, cigarettes, uncomplicated; Z79.899 Other long term (current) drug therapy

== ENCOUNTER → 2021-01-24 | Outpatient (CLI) | payer OTHER | LOC: M LABSMTC 12:51 | PROVIDERS: ATTEND Anesthesiology | DX: Z01.818 Encounter for other preprocedural examination (principal); Z20.822 Contact with and (suspected) exposure to COVID-19 ==

== ENCOUNTER → 2021-01-29 | Outpatient (CLI) | payer OTHER ==
[~2021-01-29] MED LIST changes: +BUPIVACAINE HCL 0.25% 30ML VIAL As Ordered ONE; +LIDOCAINE 1% SDV 30ML VIAL As Ordered ONE; +NORCO, ANEXSIA 5/325MG TABLET (HYDROcodone/ACETAMINOPHEN) As Ordered ONE; +dexameTHASONE 10MG/1ML VIAL PRES.FREE (J1100 PER 1MG) As Ordered ONE; +diazePAM 5MG TABLET As Ordered ONE
--- NOTE | 2021-01-29 16:40 | REP ---
INDICATION: RIGHT LUMBAR COOL RADIOFREQUENCY. COMPARISON: None. TECHNIQUE: Five views. 141.3 seconds of fluoroscopy time is reported. FINDINGS: A sequence of 5 last image hold fluoroscopically obtained spot radiograph(s) of the lumbar spine document(s) needle position(s) and contrast injection associated with injection procedure. IMPRESSION: Procedural imaging. <Electronically signed by Miguel Granado > 01/29/21 1418
--- NOTE | 2021-02-02 04:09 | ECWPNPC ---
PATIENT NAME: ASHLEY DANIEL : 1985 GENDER: FEMALE VISIT DATE: 01/29/2021 DISCHARGE DATE: 01/29/21 1750 VISIT LOCKED DATE TIME: PHYSICIAN: KEVIN POWELL MD PHYSICIAN PAGER NO: INACTIVE RESOURCE: KEVIN POWELL MD REASON FOR APPOINTMENT 1. RIGHT LUMBAR COOL RADIOFREQUENCY L4-L5,L5-S1 HISTORY OF PRESENT ILLNESS GENERAL: -. FALL RISK SCREENING: SCREENING : NO FALLS REPORTED IN THE LAST YEAR. PAIN SCREENING: PATIENT HAS A COMPLAINT OF ACUTE OR CHRONIC PAIN :YES LOCATION OF PAIN:MID BACK, LOW BACK INTENSITY OF PAIN (SCALE OF 1 TO 10):9 WHAT DOES YOUR PAIN FEEL LIKE:ACHING, CONTINOUS, STABBING DURATION:CONTINOUS PAIN IS INCREASED BY:ACTIVITIES PAIN IS DECREASED BY:OTHERS NOTHING HELPS PAIN AT THIS TIME NURSING NOTE: -. PAIN CENTER INTAKE QUESTIONS: DO YOU HAVE A HISTORY OF MRSA? :NO DO YOU TAKE A BLOOD THINNERS? :NO DO YOU HAVE ANY BLEEDING DISORDERS? :NO ANY NEW NUMBNESS OR WEAKNESS IN YOUR LEGS OR ARMS? :NO ANY PACEMAKER,DEFIBRILLATOR, OR DORSAL COLUMN STIMULATOR? :NO DO YOU HAVE ANY RASHES OR OPEN SORES? :NO ARE YOU ALLERGIC TO IV DYE? :NO ARE YOU DIABETIC? :NO ANY NEW PROBLEMS WITH YOUR MEDICATIONS? :NO HAVE YOU RECEIVED A VACCINE IN THE PAST 30 DAYS? :NO DO YOU PLAN TO RECEIVE A VACCINE IN THE NEXT 21 DAYS? :NO DO YOU TAKE ANY IMMUNOSUPPRESSIVE MEDICATIONS? :NO ANY HISTORY OF SEIZURES? :NO ANY HISTORY OF CARDIAC ISSUES OR EVENTS? :NO DO YOU HAVE ANY KIDNEY OR LIVER DISEASE? :NO DO YOU HAVE SLEEP APNEA? :YES DO YOU WEAR A CPAP?YES ANY RECENT HEAD INJURY? :NO DO YOU HAVE ANY NEW INFECTIONS? :NO IS THERE A CHANCE YOU COULD BE ? :NO ARE YOU BREAST FEEDING? :NO WHEN DID YOU LAST EAT? : 01/28/2021 2300 WHEN DID YOU LAST DRINK? : 01/29/2021 0930 WHAT DID YOU LAST DRINK? : WATER NAME OF PERSON DRIVING YOU HOME? : [employer] DO YOU HAVE ANY OTHER QUESTIONS OR CONCERNS? : NO CURRENT MEDICATIONS TAKING CELEBREX 100 MG CAPSULE 1 CAPSULE WITH FOOD ORALLY ONCE A DAY TAKING SEROQUEL 100 MG TABLET 1 TABLET AT BEDTIME ORALLY ONCE A DAY TAKING REMERON 15 MG TABLET 1 TABLET ORALLY ONCE A DAY TAKING LISINOPRIL 10 MG TABLET 1 TABLET ORALLY ONCE A DAY TAKING BACLOFEN 20 MG TABLET 1 TABLET WITH FOOD OR MILK ORALLY THREE TIMES A DAY TAKING FEXOFENADINE HCL 180 MG TABLET 1 TABLET ORALLY ONCE A DAY NOT-TAKING CLARITIN 10 MG TABLET 1 TABLET ORALLY ONCE A DAY NOT-TAKING CHANTIX 1 TAB ORAL , NOTES: NOT SURE OF DOSE NOT-TAKING TRAZODONE HCL 100 MG TABLET 1 TABLET AT BEDTIME NEEDED ORALLY ONCE A DAY NOT-TAKING IBUPROFEN 800 MG TABLET 1 TABLET WITH FOOD OR MILK NEEDED ORALLY THREE TIMES A DAY NOT-TAKING ESCITALOPRAM OXALATE 20 MG TABLET 0.5 TABLET ORALLY ONCE A DAY NOT-TAKING HYDROXYZINE HCL 50 MG TABLET 1 TABLET NEEDED ORALLY TID NEEDED NOT-TAKING IBUPROFEN 200 MG TABLET 1 TABLET WITH FOOD OR MILK NEEDED ORALLY THREE TIMES A DAY MEDICATION LIST REVIEWED AND RECONCILED WITH THE PATIENT PAST MEDICAL HISTORY DEPRESSION/ANXIETY INSOMNIA ASTHMA LOW BACK PAIN ALLERGIES SEASONALE: RUNNY NOSE - ALLERGY SOCIAL HISTORY GENERAL: TOBACCO USE ARE YOU A:CURRENT SMOKER ARE YOU INTERESTED IN QUITTING?THINKING ABOUT QUITTING COUNSELED THE PATIENT ON SMOKING CESSATION, EDUCATION [id number]/06/2021 HOW MANY CIGARETTES A DAY DO YOU SMOKE?6-10 HOW SOON AFTER YOU WAKE UP DO YOU SMOKE YOUR FIRST CIGARETTE?AFTER 60 MIN HOW OFTEN DO YOU SMOKE CIGARETTES?EVERY DAY PATIENT COUNSELED ON THE DANGERS OF TOBACCO USE AND URGED TO QUIT:01/29/2021 SMOKING CESSATION INFORMATION GIVEN10/26/2020 VAPORNO E-CIGARETTENO LATEX QUESTIONNAIRE LATEX ALLERGY : HAVE YOU EVER DEVELOPED ANY TYPE OF REACTION AFTER HANDLING LATEX PRODUCTS SUCH RUBBER GLOVES, CONDOMS, DIAPHRAGMS, BALLOONS, SOCKS, OR UNDERWEAR?NO LATEX ALLERGY : HAVE YOU EVER DEVELOPED ANY TYPE OF REACTION DURING OR AFTER DENTAL APPOINTMENT, VAGINAL/RECTAL EXAMINATION, SURGICAL PROCEDURE, OR ANY OTHER EXPOSURE?NO LATEX RISK : HAVE YOU EVER HAD ANY DIFFICULTY BREATHING OR HIVES AFTER EATING OR HANDLING ANY FRUITS, OR VEGETABLES; SUCH KIWI, BANANAS, STONE FRUITS, OR CHESTNUTSNO LATEX RISK : DO YOU HAVE A PREVIOUS PERSONAL HISTORY OF MORE THAN NINE SURGERIES, SPINA BIFIDA, OR REPEATED CATHERIZATIONS? NO LATEX RISK : ARE YOU FREQUENTLY EXPOSED TO LATEX PRODUCTS IN YOUR OCCUPATION?NO DATE ASKED : 01/29/2021 ALCOHOL USE: NO. ALCOHOL SCREENING DID YOU HAVE A DRINK CONTAINING ALCOHOL IN THE PAST YEAR?NO POINTS0 INTERPRETATIONNEGATIVE RECREATIONAL DRUG USE DRUG USE?NO CAFFEINE CAFFEINE USE?YES 2 SODAS DAILY SEXUAL HX HAD SEX IN THE LAST 12 MONTHS (VAGINAL, ORAL, OR ANAL)?YES WITHMEN ONLY USE PROTECTION?YES HOW OFTEN?SOME OF THE TIME PREVENTION STRATEGIES DISCUSSED:OTHER HAVE YOU EVER HAD AN STD?NO LMP:09/07/17 HIV / HEP-C SCREENING HIV TEST OFFERED TO PATIENT:YES DATE OFFERED:09/25/2017 TEST ACCEPTED:YES BROCHURE PROVIDED TO PATIENTYES ORTHODOX [id number] NONE LANGUAGE LANGUAGES SPOKEN:KITTITIAN EDUCATION LEVEL OF EDUCATION:HIGH SCHOOL LEARNING BARRIERS / SPECIAL NEEDS CHANGE FROM LAST VISIT?NO BARRIERS TO LEARNING?YES HAS DIFFICULTY WITH COMPREHENSION PER PATIENT. 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 OTHERS AT HOME: EX PARTNER, NOW ROOM MATES. - PFS REFERRAL NEEDED?NO CLERGY REFERRAL NEEDED?NO PUBLIC HEALTH REFERRAL NEEDED?NO WAS THE PROVIDER NOTIFIED OF ANY PERTINENT INFO?YES HAS THE PATIENT BEEN EDUCATED REGARDING HIS/HER PLAN OF CARE?YES HAS THE PATIENT BEEN EDUCATED REGARDING PAIN, THE RISK FOR PAIN, THE IMPORTANCE OF EFFECTIVE PAIN MANAGEMENT, AND THE PAIN ASSESSMENT PROCESS?YES ADVANCE DIRECTIVE ADVANCE DIRECTIVE DISCUSSED WITH PATIENT:YES DOES NOT HAVE ADVANCED DIRECTIVES AT THIS TIME. PATIENT GIVEN INFORMATION AND PATIENT WILL TAKE HOME TO REVIEW. VITAL SIGNS WT 234.8 LBS, WT-KG 106.5 KG, HT 64 IN, BMI 40.30 INDEX, BP 122/79 MM HG, HR 95 /MIN, RR 18 /MIN, TEMP 98.6 F, OXYGEN SAT % 97%, SAFE IN ENV? (Y/N) YES, NA INITIALS AW 1259, REVIEWED BY: Caleb MENDOZA RN. EXAMINATION GENERAL: THE PATIENT IS ALERT, ORIENTED TIMES THREE AND COOPERATIVE. LUNGS ARE CLEAR TO AUSCULTATION. HEART SHOWS REGULAR RHYTHM, NO MURMURS AND NO GALLOPS. 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, LUMBAR REGION - M47.816 TREATMENT SPONDYLOSIS WITHOUT MYELOPATHY OR RADICULOPATHY, LUMBOSACRAL REGION START CARISOPRODOL TABLET, 350 MG, 1 TABLET NEEDED, ORALLY FOR SPASMS AND PAIN, EVERY 8 HOURS NEEDED MDD3, 3 DAYS, 8, REFILLS 0 SMC FACET BLOCK (PAIN)[id number] COMPLETION OF PROCEDURAL VISIT WHEN MEETS [id number] MED: PAIN NORCO TABLET 5MG/325MG ORALLY HYDROCODONE/[id number],ELIZABETH 01/29/2021 1:40:35 PM > VERIFIED LEXIS VALENTIN 01/29/2021 1:44:05 PM > ADMINISTERED MEDICATION: PAIN VALIUM TAB 5MG ORALLY (DIAZEPAM)[id number] REY 01/29/2021 1:40:49 PM > VERIFIED LEXIS VALENTIN 01/29/2021 1:44:22 PM > ADMINISTERED CLINICAL NOTES: FOR POST-PROCEDURE PAIN- ISTOP [id number] CHECKED. PROCEDURES PAIN NURSING RECORD PROCEDURE IN ROOM 1520, PHYSICIAN IN ROOM 1538, START 1541, FINISH 1623, PHYSICIAN OUT OF ROOM 1624, OUT OF ROOM 1635, ECG NORMAL SINUS, PATIENT SHIELDED YES, SAFETY STRAP YES, PREP CHLOROPREP, DRESSING TEGADERM DR. POWELL LOC: 1. ALERT, ORIENTED, MINE REY 01/29/2021 3:43:52 PM > RESP: 1. REGULAR, NO DYSPNEA, MINE REY 01/29/2021 3:43:55 PM > COLOR: 1. PINK, MINE REY 01/29/2021 3:43:59 PM > SKIN: 1. WARM, DRY, MINE REY 01/29/2021 3:44:02 PM > POSITION: 1. PRONE, MINE REY 01/29/2021 3:32:40 PM > VITALS: 1400 P91 0299% BP117/67 AW 1215 P88 0299% BP110/69 AW 14 MINE REY 01/29/2021 5:01:22 PM > , 28 P88 0299 BP 115/57 AW LANG CARREON 01/29/2021 2:45:45 PM > HR 86 02 100% BP 112/61 1500 P80 0299% R18 BP 114/69 AW 1518 P83 02 100% R18 BP102/64 121/78, 79, 16, 98%, MINE REY 01/29/2021 3:33:02 PM > 126/81, 80, 16, 99%, MINE REY 01/29/2021 3:44:22 PM > 134/67, 67, 16, 100%, MINE REY 01/29/2021 4:01:26 PM > 132/74, 80, 16, 99%, MINE REY 01/29/2021 4:15:04 PM > 131/78, 84, 16, 98%, MINE REY 01/29/2021 4:30:54 PM > 130/81, 91, 16, 97%, MINE REY 01/29/2021 4:45:29 PM > MAIKOL REY RN, MINE REY 01/29/2021 3:33:13 PM > COMPLETION OF PROCEDURE APPOINTMENT: POST PAIN 5, DRESSING SITE DRY AND INTACT, IV N/A, GAIT STEADY, TEACHING COMPLETED, PATIENT ACKNOWLEDGES UNDERSTANDING YES, PROCEDURE APPOINTMENT COMPLETED AT 1700 : POST PROCEDURE, PT WAS TEARFUL, PT CONSOLED. IN RECOVERY BAY, REVIEWED POST PROCEDURE INSTRUCTIONS, DISCUSSED PAIN MEDS. PT STATED SHE TAKES BACLOFEN AND IT'S NOT WORKING, THEN STARTED CRYING AGAIN. DISCUSSED WITH DR POWELL, ISTOP GIVEN TO HIM, HE STATED HE WOULD PRESCRIBE SOMA Q 8 HRS X 3 DAYS MDD 2. INFORMED PT OF THE ABOVE, PT EXPRESSED UNDERSTANDING.CANDIDO ELIZABETH 01/29/2021 5:06:40 PM > PN RADIOFREQUENCY DATE OF PROCEDURE 01/29/2021 THERMO LESION RADIOFREQUENCY > 80 DEGREES : COOL - AVANOS SYSTEM SET AT 60* WITH TISSUE TARGET TEMP > 80* OR MORE. STRAIGHT NEEDLE SIDE: : RIGHT LEVELS: : L4-L5, L5-S1 NEEDLE/CATHETER/GAUGE: : 17 CANULA LENGTH: : 150 MM ACTIVE TIP: : 4 MM GROUNDING PAD PLACED ON AFFECTED SIDE (MUSCULAR AREA): : LUMBAR (POSTERIOR UPPER THIGH) 1 ST LEVEL: : L3, INITAL POSTIVE SENSORY RESPONE (50 HZ) 0.2, MOTOR RESPONSE (2 HZ-UP TO 3 VOLTS) 3.0 , PRE-LOCAL IMPEDENCE READING OHMS 291 , POST-LOCAL IMPEDENCE READING OHMS 240 , DURING RF IMPEDENCE READING OHMS 274 2 ND LEVEL: : L4, INITIAL POSITIVE SENSORY RESPONSE (50 HZ) 0.8, MOTOR RESPONSE (2 HZ- UP TO 3 VOLTS) 3.0 , PRE-LOCAL IMPEDENCE READING OHMS 190 , POST-LOCAL IMEPEDENCE READING OHMS 220 , DURING RF IMPEDENCE READING OHMS [address] LEVEL: : L5, INITIAL POSITIVE SENSORY RESPONSE (50 HZ) 1.5, MOTOR RESPONSE (2HZ- UP TO 3 VOLTS) 3.0 , PRE- LOCAL IMPEDENCE READING OHMS 200 , POST-LOCAL IMPEDENCE READING OHMS 180 , DURING RF IMPEDENCE READING OHMS 156 PRE PROCEDURE DIAGNOSES 1. LUMBAR SPONDYLOSIS. 2. LUMBOSACRAL SPONDYLOSIS POST PROCEDURE DIAGNOSES 1. LUMBAR SPONDYLOSIS. 2. LUMBOSACRAL SPONDYLOSIS PROCEDURE RIGHT L4-L5 AND RIGHT L5-S1 LUMBAR FACET RADIOFREQUENCY AVANOS COOL RADIOFREQUENCY SURGEON DR. KEVIN POWELL HOMEOPATHIC DOCTOR NONE ANESTHESIA LOCAL PRE PROCEDURE REPORT THE PATIENT HAS HISTORY OF CHRONIC LOW BACK PAIN. I EVALUATED THE PATIENT AND REVIEWED THE CHART. I WENT OVER THE RISKS, ALTERNATIVES, AND BENEFITS ASSOCIATED WITH THIS PROCEDURE. THE PATIENT WOULD LIKE TO PROCEED AND GAVE CONSENT TO PERFORM THE PROCEDURE. THE PATIENT DENIES UNEXPLAINABLE WEIGHT LOSS, FEVER, CHILLS OR NEW CHANGES IN URINARY OR BOWEL CONTROL. THE PATIENT IS COVID-19 NEGATIVE DESCRIPTION OF PROCEDURE THE PATIENT WAS BROUGHT TO THE PROCEDURE ROOM AND PLACED IN THE PRONE POSITION. A TIMEOUT WAS PERFORMED WHERE THE CONSENTED SITE WAS VERIFIED WITH EVERYONE IN THE ROOM. THE LUMBOSACRAL AREA WAS CLEANED WITH CHLORAPREP SOLUTION AND DRAPED ASEPTICALLY. THE PROCEDURE WAS DONE UNDER STERILE CONDITIONS. UNDER FLUOROSCOPIC GUIDANCE, TARGETS WERE SELECTED AT THE INTERSECTION OF THE RIGHT TRANSVERSE PROCESS OF L4, L5 AND ALA OF S1 WITH ITS RESPECTIVE SUPERIOR ARTICULAR PROCESS. I CONFIRMED AGAIN THE SITE OF TARGET. LIDOCAINE WAS USED TO NUMB THE SKIN AND THE SUBCUTANEOUS TISSUE BELOW IT. RADIOFREQUENCY CANNULAS, 17-GAUGE, 150 MM LONG WITH 4 MM ACTIVE TIP, WERE ADVANCED UNDER FLUOROSCOPIC GUIDANCE AND FOLLOWING PATIENT FEEDBACK UNTIL THE TARGET AREA WAS REACHED. POSITION OF THE CANNULA WAS VERIFIED WITH AP AND LATERAL VIEWS. AFTER PROPER POSITION OF THE CANNULA WAS ACHIEVED, WE WORKED WITH THE RIGHT SELECTED MEDIAN BRANCHES OF L3, L4 AND THE DORSAL RAMI OF L5. WE MEASURED THE CORRESPONDING IMPEDANCES AND MOTOR RESPONSES INDICATED IN THE RADIOFREQUENCY WORK SHEET. POSITION OF THE CANNULA WAS VERIFIED AGAIN WITH AP AND LATERAL VIEWS. LIDOCAINE 1%, 2 ML, WAS INJECTED AT EACH LEVEL. RADIOFREQUENCY WAS DONE AT EACH LEVEL USING THE PolyActiva SYSTEM-- COOLED RF-- WITH A SETTING AT THE MACHINE OF 60 DEGREES WITH A TARGET TISSUE TEMPERATURE OF 80 TO 90 DEGREES FOR A MINIMUM OF 150 SECONDS. AFTER RADIOFREQUENCY WAS DONE, THE PATIENT RECEIVED BUPIVACAINE 0.125%,1 ML, WITH DEXAMETHASONE 3 MG AT EACH SITE. THERE WAS NO EVIDENCE OF BLOOD, PARESTHESIA OR CEREBROSPINAL FLUID DURING THE PROCEDURE. THE PATIENT WAS SENT TO THE RECOVERY ROOMS. THE PATIENT WAS MOVING THE EXTREMITIES AND DOING WELL. EBL LESS THAN 5 ML. THERE WERE NO COMPLICATIONS DURING THE PROCEDURE. FLUOROSCOPY TIME WAS 2 MINUTE 21 SECONDS POST PROCEDURE NOTE THE PATIENT WILL BE SEEN IN A FOLLOW UP IN THE NEXT FEW WEEKS. INSTRUCTIONS WERE GIVEN, QUESTIONS WERE ANSWERED, AND THE PATIENT EXPRESSED UNDERSTANDING AND AGREES WITH THE PLAN. . I, MANDI MENA, DOCUMENTED THE ABOVE INFORMATION ACTING A SCRIBE FOR DR. POWELL. I HAVE REVIEWED THE ABOVE DOCUMENT, WRITTEN BY NORA KING, AND I VERIFY THAT IT IS ACCURATE VISIT CODES PROCEDURE CODES 67572 DESTROY LUMB/SAC FACET JNT, MODIFIERS: RT [id number] DESTROY L/S FACET JNT ADDL, MODIFIERS: RT DISPOSITION & COMMUNICATION FOLLOW UP FOLLOW UP WITH INVENTORY REPRESENTATIVE (REASON: POST RIGHT LUMBAR COOL RADIOFREQUENCY L4-L5, L5-S1) ELECTRONICALLY SIGNED BY KEVIN POWELL MD, MD ON 02/01/2021 AT 02:10 PM EDT DISCLAIMER : THIS IS A VISIT SUMMARY EXTRACTED FROM THE [employer] CHART. IT IS NOT A COPY OF THE [employer] PROGRESS NOTE. GENNA
== END ==
LOC: M PAIN 13:00
PROVIDERS: ATTEND Anesthesiology
DX: M47.817 Spondylosis without myelopathy or radiculopathy, lumbosacral region (principal); M47.816 Spondylosis without myelopathy or radiculopathy, lumbar region; G47.30 Sleep apnea, unspecified; J45.909 Unspecified asthma, uncomplicated; F17.210 Nicotine dependence, cigarettes, uncomplicated; Z86.59 Personal history of other mental and behavioral disorders; E66.01 Morbid (severe) obesity due to excess calories; Z68.41 Body mass index [BMI] 40.0-44.9, adult; Z79.899 Other long term (current) drug therapy
CPT/HCPCS: 64635; 64636; J1100

== ENCOUNTER → 2021-02-22 | Outpatient (CLI) | payer OTHER ==
[~2021-02-22] MED LIST changes: -BUPIVACAINE HCL 0.25% 30ML VIAL As Ordered ONE; -LIDOCAINE 1% SDV 30ML VIAL As Ordered ONE; -NORCO, ANEXSIA 5/325MG TABLET (HYDROcodone/ACETAMINOPHEN) As Ordered ONE; -dexameTHASONE 10MG/1ML VIAL PRES.FREE (J1100 PER 1MG) As Ordered ONE; -diazePAM 5MG TABLET As Ordered ONE
[2021-02-22 17:47] LABS: BASO % 0.6 % (0.0-1.0); EOS # 0.3 10^3/uL (0.0-0.5); EOS % 3.9 % (0.0-3.0); HEMATOCRIT 36.3 % (36.0-47.0); HEMOGLOBIN 11.5 g/dl (12.0-15.5); LYMPH # 2.5 10^3/uL (1.5-5.0); LYMPH % 34.6 % (24.0-44.0); MEAN CORPUSCULAR HEMOGLOBIN 26.7 pg (27.0-33.0); MEAN CORPUSCULAR HGB CONC 31.7 g/dl (32.0-36.5); MEAN CORPUSCULAR VOLUME 84.2 fl (80.0-96.0); MONO # 0.4 10^3/uL (0.0-0.8); MONO % 6.1 % (2.0-8.0); NEUTROPHILS # 3.9 10^3/uL (1.5-8.5); NEUTROPHILS % 54.5 % (36.0-66.0); PLATELET COUNT, AUTOMATED 264 10^3/uL (150-450); RED BLOOD COUNT 4.31 10^6/uL (4.00-5.40); WHITE BLOOD COUNT 7.2 10^3/uL (4.0-10.0)
[2021-02-22 17:56] LABS: ALBUMIN 3.1 GM/DL (3.2-5.2); ALT/SGPT 25 U/L (12-78); BILIRUBIN,TOTAL 0.2 MG/DL (0.2-1.0); BLOOD UREA NITROGEN 8 MG/DL (7-18); CALCIUM LEVEL 8.5 MG/DL (8.5-10.1); CARBON DIOXIDE LEVEL 25 MEQ/L (21-32); CHLORIDE LEVEL 107 MEQ/L (98-107); CHOLESTEROL LEVEL 188 MG/DL (<200); CHOLESTEROL RISK RATIO 6.064 (<5); CREATININE FOR GFR 0.59 MG/DL (0.55-1.30); FREE T4 0.84 NG/DL (0.76-1.46); GLOMERULAR FILTRATION RATE > 60.0 (>60); GLUCOSE, FASTING 91 MG/DL (70-100); HDL CHOLESTEROL 31 MG/DL (>40); LDL CHOLESTEROL 126 MG/DL (<100); NON-HDL-C 157 MG/DL; POTASSIUM SERUM 4.4 MEQ/L (3.5-5.1); SODIUM LEVEL 137 MEQ/L (136-145); TOTAL PROTEIN 7.1 GM/DL (6.4-8.2); TRIGLYCERIDES LEVEL 155 MG/DL (<150)
[2021-02-22 18:41] LABS: HEMOGLOBIN A1c 6.2 %
== END ==
LOC: M PLALAB 14:09
PROVIDERS: ATTEND Nurse Practitioner Family
DX: Z00.00 Encounter for general adult medical examination without abnormal findings (principal); F41.8 Other specified anxiety disorders; Z13.220 Encounter for screening for lipoid disorders; Z13.1 Encounter for screening for diabetes mellitus

== ENCOUNTER → 2021-03-06 | Outpatient (CLI) | payer OTHER | LOC: M PAIN 11:45 | PROVIDERS: ATTEND Anesthesiology | DX: G89.29 Other chronic pain (principal); M79.18 Myalgia, other site; M47.816 Spondylosis without myelopathy or radiculopathy, lumbar region; F32.9 Major depressive disorder, single episode, unspecified; F41.9 Anxiety disorder, unspecified; G47.00 Insomnia, unspecified; J45.909 Unspecified asthma, uncomplicated; M54.5 Low back pain; F17.210 Nicotine dependence, cigarettes, uncomplicated ==

== ENCOUNTER → 2021-03-15 | Outpatient (CLI) | payer OTHER | LOC: M PAIN 15:00 | PROVIDERS: ATTEND Anesthesiology | DX: M47.816 Spondylosis without myelopathy or radiculopathy, lumbar region (principal); G89.29 Other chronic pain; J45.909 Unspecified asthma, uncomplicated; F17.210 Nicotine dependence, cigarettes, uncomplicated; Z86.59 Personal history of other mental and behavioral disorders; Z79.899 Other long term (current) drug therapy ==

== ENCOUNTER → 2021-03-27 | Outpatient (CLI) | payer OTHER | LOC: M PAIN 15:00 | PROVIDERS: ATTEND Anesthesiology | DX: G89.29 Other chronic pain (principal); M54.50 Low back pain, unspecified; M79.18 Myalgia, other site; F32.9 Major depressive disorder, single episode, unspecified; F41.9 Anxiety disorder, unspecified; E11.9 Type 2 diabetes mellitus without complications; J45.909 Unspecified asthma, uncomplicated; Z87.891 Personal history of nicotine dependence; Z79.84 Long term (current) use of oral hypoglycemic drugs; Z79.899 Other long term (current) drug therapy ==

== ENCOUNTER → 2021-04-19 | Outpatient (CLI) | payer OTHER ==
--- NOTE | 2021-04-19 14:24 | REP ---
INDICATION: MODERATE PERSISTENT ASTHMA, UNCOMPLICATED. COMPARISON: 07/16/2020 from an outside institution FINDINGS: The superior mediastinal structures are midline. The cardiac silhouette is unremarkable in size, shape, and position. The diaphragmatic surfaces of the lungs are regular, and the costophrenic angles are clear. The pulmonary curtis are clear. The imaged osseous structures are intact. IMPRESSION: There is no acute cardiopulmonary disease. <Electronically signed by Jay Thompson > 04/19/21 2468
== END ==
LOC: M RAD 13:59
PROVIDERS: ATTEND Nurse Practitioner Adult Health
DX: J45.40 Moderate persistent asthma, uncomplicated (principal)

== ENCOUNTER → 2021-05-08 | Outpatient (CLI) | payer OTHER | LOC: M PAIN 15:15 | PROVIDERS: ATTEND Anesthesiology | DX: M54.50 Low back pain, unspecified (principal); M79.18 Myalgia, other site; E11.9 Type 2 diabetes mellitus without complications; Z87.891 Personal history of nicotine dependence; Z79.899 Other long term (current) drug therapy; Z79.84 Long term (current) use of oral hypoglycemic drugs ==

== ENCOUNTER → 2021-05-15 | Outpatient (CLI) | payer OTHER ==
[2021-05-15 17:23] LABS: ALBUMIN 3.4 GM/DL (3.2-5.2); ALT/SGPT 17 U/L (12-78); BILIRUBIN,TOTAL 0.2 MG/DL (0.2-1.0); BLOOD UREA NITROGEN 11 MG/DL (7-18); CARBON DIOXIDE LEVEL 26 MEQ/L (21-32); CHLORIDE LEVEL 107 MEQ/L (98-107); CHOLESTEROL LEVEL 209 MG/DL (<200); CHOLESTEROL RISK RATIO 6.531 (<5); CREATININE FOR GFR 0.64 MG/DL (0.55-1.30); GLOMERULAR FILTRATION RATE > 60.0 (>60); GLUCOSE, FASTING 110 MG/DL (70-100); HDL CHOLESTEROL 32 MG/DL (>40); LDL CHOLESTEROL 124 MG/DL (<100); NON-HDL-C 177 MG/DL; POTASSIUM SERUM 4.1 MEQ/L (3.5-5.1); SODIUM LEVEL 139 MEQ/L (136-145); TOTAL PROTEIN 7.7 GM/DL (6.4-8.2); TRIGLYCERIDES LEVEL 265 MG/DL (<150)
[2021-05-15 17:39] LABS: HEMOGLOBIN A1c 6.1 %
== END ==
LOC: M PLALAB 14:50
PROVIDERS: ATTEND Nurse Practitioner Family
DX: R73.09 Other abnormal glucose (principal); E78.5 Hyperlipidemia, unspecified; I10 Essential (primary) hypertension

== ENCOUNTER → 2021-05-21 | Outpatient (CLI) | payer OTHER ==
[~2021-05-21] MED LIST changes: -CHLO1.4S2 PO; +CHLO1.4S7 PO
== END ==
LOC: M PAIN 15:45
PROVIDERS: ATTEND Anesthesiology
DX: M51.16 Intervertebral disc disorders with radiculopathy, lumbar region (principal); M48.061 Spinal stenosis, lumbar region without neurogenic claudication; R73.03 Prediabetes; F32.A Depression, unspecified; F41.9 Anxiety disorder, unspecified; G47.00 Insomnia, unspecified; J45.909 Unspecified asthma, uncomplicated; Z87.891 Personal history of nicotine dependence; Z79.84 Long term (current) use of oral hypoglycemic drugs; Z79.899 Other long term (current) drug therapy

== ENCOUNTER → 2021-06-04 | Outpatient (CLI) | payer OTHER | LOC: M PAIN 15:00 | PROVIDERS: ATTEND Anesthesiology | DX: M48.061 Spinal stenosis, lumbar region without neurogenic claudication (principal); M51.16 Intervertebral disc disorders with radiculopathy, lumbar region; F32.A Depression, unspecified; F41.9 Anxiety disorder, unspecified; G47.00 Insomnia, unspecified; J45.909 Unspecified asthma, uncomplicated; Z87.891 Personal history of nicotine dependence; Z79.899 Other long term (current) drug therapy ==

== ENCOUNTER 2021-06-13 12:45 | Outpatient (RCR) | payer OTHER ==
[~2021-06-13 12:45] MED LIST changes: +CHLO1.4S2 PO; -CHLO1.4S7 PO
== END 2021-06-21 ==
LOC: M PT 12:45
PROVIDERS: ATTEND Nurse Practitioner Family
DX: M47.16 Other spondylosis with myelopathy, lumbar region (principal)

== ENCOUNTER 2021-06-25 12:21 | Outpatient (RCR) | payer OTHER ==
[~2021-06-25 12:21] MED LIST changes: -CHLO1.4S2 PO; +CHLO1.4S7 PO
== END 2021-07-22 ==
LOC: M PT 12:21
PROVIDERS: ATTEND Nurse Practitioner Family
DX: M47.16 Other spondylosis with myelopathy, lumbar region (principal)

== ENCOUNTER → 2021-07-12 | Outpatient (CLI) | payer OTHER | LOC: M PAIN 14:15 | PROVIDERS: ATTEND Anesthesiology | DX: M48.061 Spinal stenosis, lumbar region without neurogenic claudication (principal); F32.A Depression, unspecified; F41.9 Anxiety disorder, unspecified; J45.909 Unspecified asthma, uncomplicated; M54.50 Low back pain, unspecified; E11.9 Type 2 diabetes mellitus without complications; Z87.891 Personal history of nicotine dependence; Z79.84 Long term (current) use of oral hypoglycemic drugs; Z79.899 Other long term (current) drug therapy ==

== ENCOUNTER → 2021-07-17 | Outpatient (CLI) | payer OTHER | LOC: M LABSMTC 13:11 | PROVIDERS: ATTEND Anesthesiology | DX: Z01.818 Encounter for other preprocedural examination (principal); Z11.52 Encounter for screening for COVID-19 ==

== ENCOUNTER → 2021-07-22 | Outpatient (CLI) | payer OTHER | LOC: M PAIN 08:30 | PROVIDERS: ATTEND Anesthesiology | DX: M51.17 Intervertebral disc disorders with radiculopathy, lumbosacral region (principal); F32.A Depression, unspecified; F41.9 Anxiety disorder, unspecified; G47.00 Insomnia, unspecified; J45.909 Unspecified asthma, uncomplicated; Z79.1 Long term (current) use of non-steroidal anti-inflammatories (NSAID); Z79.899 Other long term (current) drug therapy; Z87.891 Personal history of nicotine dependence | CPT/HCPCS: 62323; J1030; Q9967 ==

== ENCOUNTER → 2021-08-01 | Outpatient (CLI) | payer OTHER ==
[2021-08-01 15:42] LABS: APPEARANCE, URINE CLOUDY (CLEAR); BACTERIA, URINE AUTO 1+ (NEGATIVE); BILIRUBIN, URINE AUTO NEGATIVE (NEGATIVE); BLOOD, URINE BLOOD NEGATIVE (NEGATIVE); COLOR, URINE YELLOW (YELLOW); GLUCOSE, URINE (UA) AUTO NEGATIVE (NEGATIVE); KETONE, URINE AUTO NEGATIVE (NEGATIVE); LEUKOCYTE ESTERASE, URINE AUTO NEGATIVE (NEGATIVE); MUCUS, URINE SMALL (NEGATIVE); NITRITE, URINE AUTO POSITIVE (NEGATIVE); PROTEIN, URINE AUTO NEGATIVE (NEGATIVE); RBC, URINE AUTO 1 /HPF (0-3); SPECIFIC GRAVITY URINE AUTO 1.018 (1.002-1.035); SQUAMOUS EPITHELIAL CELL UR AU 29 /HPF (0-6); UROBILINOGEN, URINE AUTO 0.2 mg/dL (0.0-2.0); WBC, URINE AUTO 7 /HPF (0-3)
[2021-08-01 15:43] LABS: HEMATOCRIT 34.3 % (36.0-47.0); HEMOGLOBIN 10.6 g/dl (12.0-15.5); MEAN CORPUSCULAR HEMOGLOBIN 25.2 pg (27.0-33.0); MEAN CORPUSCULAR HGB CONC 30.9 g/dl (32.0-36.5); MEAN CORPUSCULAR VOLUME 81.5 fl (80.0-96.0); PLATELET COUNT, AUTOMATED 299 10^3/uL (150-450); RED BLOOD COUNT 4.21 10^6/uL (4.00-5.40); WHITE BLOOD COUNT 7.8 10^3/uL (4.0-10.0)
[2021-08-01 15:54] LABS: ALBUMIN 3.3 GM/DL (3.2-5.2); ALT/SGPT 16 U/L (12-78); AMYLASE 44 U/L (25-115); BILIRUBIN,TOTAL 0.1 MG/DL (0.2-1.0); BLOOD UREA NITROGEN 9 MG/DL (7-18); CALCIUM LEVEL 9.5 MG/DL (8.5-10.1); CARBON DIOXIDE LEVEL 26 MEQ/L (21-32); CHLORIDE LEVEL 105 MEQ/L (98-107); CHOLESTEROL LEVEL 175 MG/DL (<200); CHOLESTEROL RISK RATIO 5.833 (<5); CREATININE FOR GFR 0.65 MG/DL (0.55-1.30); GLOMERULAR FILTRATION RATE > 60.0 (>60); GLUCOSE, FASTING 108 MG/DL (70-100); HDL CHOLESTEROL 30 MG/DL (>40); LDL CHOLESTEROL 120 MG/DL (<100); LIPASE 129 U/L (73-393); NON-HDL-C 145 MG/DL; POTASSIUM SERUM 4.5 MEQ/L (3.5-5.1); SODIUM LEVEL 136 MEQ/L (136-145); TOTAL PROTEIN 7.4 GM/DL (6.4-8.2); TRIGLYCERIDES LEVEL 125 MG/DL (<150)
[2021-08-01 15:57] LABS: TOTAL 25(OH) VITAMIN D 21.5 NG/ML (30.0-100.0)
[2021-08-01 18:24] LABS: HEMOGLOBIN A1c 6.1 %
== END ==
LOC: M PLALAB 12:38
PROVIDERS: ATTEND Physician Assistant Medical
DX: R10.11 Right upper quadrant pain (principal); E55.9 Vitamin D deficiency, unspecified; E11.9 Type 2 diabetes mellitus without complications; Z68.41 Body mass index [BMI] 40.0-44.9, adult; R30.0 Dysuria

== ENCOUNTER → 2021-10-08 | Outpatient (CLI) | payer OTHER | LOC: M RAD 14:11 | PROVIDERS: ATTEND Nurse Practitioner Family | DX: M25.561 Pain in right knee (principal); M25.562 Pain in left knee ==

== ENCOUNTER → 2021-10-08 | Outpatient (CLI) | payer OTHER | LOC: M RAD 14:07 | PROVIDERS: ATTEND Nurse Practitioner Adult Health | DX: R91.8 Other nonspecific abnormal finding of lung field (principal); Z87.891 Personal history of nicotine dependence ==

== ENCOUNTER → 2021-10-22 | Outpatient (CLI) | payer OTHER | LOC: M WHC 14:09 | PROVIDERS: ATTEND Plastic Surgery Surgery of the Hand | DX: R92.8 Other abnormal and inconclusive findings on diagnostic imaging of breast (principal); N63.14 Unspecified lump in the right breast, lower inner quadrant; N64.59 Other signs and symptoms in breast; N62 Hypertrophy of breast | CPT/HCPCS: 76642; 77066; G0279 ==

== ENCOUNTER → 2021-10-23 | Outpatient (CLI) | payer OTHER | LOC: M PAIN 14:30 | PROVIDERS: ATTEND Nurse Practitioner Family | DX: M51.16 Intervertebral disc disorders with radiculopathy, lumbar region (principal); G89.29 Other chronic pain; E11.9 Type 2 diabetes mellitus without complications; J45.909 Unspecified asthma, uncomplicated; Z86.59 Personal history of other mental and behavioral disorders; Z87.891 Personal history of nicotine dependence; Z79.899 Other long term (current) drug therapy ==

== ENCOUNTER → 2021-10-28 | Outpatient (CLI) | payer OTHER ==
[2021-10-28 17:39] LABS: FREE T4 0.89 NG/DL (0.76-1.46); THYROID STIMULATING HORMONE 1.8 uIU/ML (0.358-3.740)
== END ==
LOC: M PLALAB 15:18
PROVIDERS: ATTEND Surgery
DX: N64.52 Nipple discharge (principal)

== ENCOUNTER → 2021-11-28 | Outpatient (CLI) | payer OTHER ==
[~2021-11-28] MED LIST changes: +ALBU8.5H; +AMIT25TA17; +BUDE10.2; +CARI1TAB7; +DIPH-319; +EMGA120I; +FERR325T19; +FEXO-112; +FLUT1INH3; +FREM225A; +GABA-282; +LISI10TA22; +MELO7.5T35; +METF-838 PO; +OMEP40CA5; +PARO40TA2; +ROSU5TAB5; +SOMA350T PO; +SUCR1TAB56; +UBRO100T
== END ==
LOC: M LABSMTC 10:18
PROVIDERS: ATTEND Anesthesiology
DX: Z01.812 Encounter for preprocedural laboratory examination (principal); Z11.52 Encounter for screening for COVID-19

== ENCOUNTER 2021-12-03 06:23 | Day surgery (SDC) | payer OTHER ==
[~2021-12-03] VITALS: Ht 162.6 cm; Wt 99.8 kg
[~2021-12-03 06:23] MED LIST changes: +NS 1,000 ML IV SCH
[2021-12-03] MEDS ORDERED: LR 1,000 ML IV SCH ×2 (06:30→09:35)
[2021-12-03] MEDS ORDERED: HEPARIN SOD (PORCINE) 5000UNITS/ML 1ML VIAL/SYRINGE SQ ONE (07:00)
[2021-12-03] MEDS ORDERED: ceFAZolin SOD 2 GM in IV 1 EA IV ONE (07:00)
[2021-12-03] MEDS ORDERED: MIDAZOLAM INJ 2MG/2ML VIAL (J2250 PER 1MG) As Ordered ONE (07:05)
[2021-12-03] MEDS ORDERED: fentaNYL 100 MCG/2 ML INJECTION As Ordered ONE ×2 (07:06→08:20)
[2021-12-03] MEDS ORDERED: propofoL 200 MG/20 ML VIAL As Ordered ONE (07:07)
[2021-12-03] MEDS ORDERED: LIDOCAINE 2% 100MG/5ML SDV (FOR ANES.) As Ordered ONE (07:07)
[2021-12-03] MEDS ORDERED: ONDANSETRON 4MG/2ML VIAL As Ordered ONE (07:08)
[2021-12-03] MEDS ORDERED: dexameTHASONE 4 MG/ML 1ML VIAL (J1100 PER 1MG) As Ordered ONE (07:08)
[2021-12-03] MEDS ORDERED: BUPIVACAINE HCL 0.25% 30ML VIAL As Ordered ONE (07:14)
[2021-12-03] MEDS ORDERED: LIDOCAINE 1% SDV 30ML VIAL As Ordered ONE (07:14)
[2021-12-03 07:21] LABS: HCG, SERUM QUALITATIVE NEGATIVE (NEGATIVE)
[2021-12-03] MEDS ORDERED: ALBUTEROL 6.7GM INHALER **FOR ANES. CART/OMNICELL ONLY As Ordered ONE (07:58)
[2021-12-03] MEDS ORDERED: ACETAMINOPHEN 1000MG 100ML IV BTL (OFIRMEV) (J0131 PER 10MG) As Ordered ONE (08:28)
[2021-12-03] MEDS ORDERED: oxyCODONE 5MG TAB PO PRN (09:35)
[2021-12-03] MEDS ORDERED: ONDANSETRON 4MG/2ML VIAL IV PRN (09:35)
[2021-12-03] MEDS ORDERED: fentaNYL 100 MCG/2 ML INJECTION IV PRN (09:35)
[2021-12-03] MEDS ORDERED: ULTR50TA8 PO (09:53)
[2021-12-03] MEDS ORDERED: NYST1POW9 TOP (09:53)
[2021-12-03 10:16] VITALS: BP 129/57
== END 2021-12-03 10:43 | disposition home or self-care (01) ==
LOC: M SDC 06:23
PROVIDERS: ATTEND Surgery
DX: N61.1 Abscess of the breast and nipple (principal); J45.909 Unspecified asthma, uncomplicated; G47.33 Obstructive sleep apnea (adult) (pediatric); E11.9 Type 2 diabetes mellitus without complications; K21.9 Gastro-esophageal reflux disease without esophagitis; E66.9 Obesity, unspecified; Z68.37 Body mass index [BMI] 37.0-37.9, adult; Z87.891 Personal history of nicotine dependence
CPT/HCPCS: 19101; 36415; 84703; 86850; 86900; 86901; 88307; 93005; J0131; J0690; J1100; J1644; J2250; J2405; J3010

== ENCOUNTER → 2023-02-05 | Outpatient (CLI) | payer OTHER ==
[~2023-02-05] MED LIST changes: +ALBU6.7H6 INH; -AMIT25TA17; +AMIT25TA19; -NS 1,000 ML IV SCH; +NYST1POW9 TOP; -PROV108A INH; +ULTR50TA8 PO
== END ==
LOC: M SOG 08:54
PROVIDERS: ATTEND Orthopaedic Surgery
DX: M25.561 Pain in right knee (principal)

== ENCOUNTER 2024-02-02 09:33 | Emergency (ER) | payer OTHER ==
[~2024-02-02] VITALS: Ht 162.6 cm; Wt 108.6 kg
[~2024-02-02 09:33] MED LIST changes: -DIPH-319; +DIPH-429; +LORA-1041 PO; -LORA-674 PO; +ROSU5TAB40; -ROSU5TAB5
[2024-02-02 09:34] VITALS: BP 138/89; TEMP 97.8; O2SAT 98
[2024-02-02 10:42] LABS: BASO % 0.4 % (0.0-1.0); EOS # 0.3 10^3/uL (0.0-0.5); EOS % 3.9 % (0.0-3.0); HEMATOCRIT 30.4 % (36.0-47.0); LYMPH # 1.6 10^3/uL (1.5-5.0); LYMPH % 20.2 % (24.0-44.0); MEAN CORPUSCULAR HEMOGLOBIN 27.4 pg (27.0-33.0); MEAN CORPUSCULAR HGB CONC 32.9 g/dl (32.0-36.5); MEAN CORPUSCULAR VOLUME 83.3 fl (80.0-96.0); MONO # 0.3 10^3/uL (0.0-0.8); MONO % 3.9 % (2.0-8.0); NEUTROPHILS # 5.8 10^3/uL (1.5-8.5); NEUTROPHILS % 71.2 % (36.0-66.0); PLATELET COUNT, AUTOMATED 289 10^3/uL (150-450); RED BLOOD COUNT 3.65 10^6/uL (4.00-5.40); WHITE BLOOD COUNT 8.1 10^3/uL (4.0-10.0)
[2024-02-02 11:11] LABS: HCG, SERUM QUALITATIVE NEGATIVE (NEGATIVE)
[2024-02-02 11:13] LABS: BLOOD UREA NITROGEN 11 MG/DL (9-23); CALCIUM LEVEL 8.5 MG/DL (8.5-10.1); CARBON DIOXIDE LEVEL 24 MMOL/L (20-31); CHLORIDE LEVEL 106 MMOL/L (98-107); CREATININE FOR GFR 0.53 MG/DL (0.55-1.30); GLOMERULAR FILTRATION RATE > 60.0 (>60); GLUCOSE, FASTING 120 MG/DL (60-100); POTASSIUM SERUM 4.1 MMOL/L (3.5-5.1); SODIUM LEVEL 135 MMOL/L (136-145)
== END 2024-02-02 13:18 | disposition left against medical advice (07) ==
LOC: M ED 09:33
DX: N93.9 Abnormal uterine and vaginal bleeding, unspecified (principal); I10 Essential (primary) hypertension; J45.909 Unspecified asthma, uncomplicated; K21.9 Gastro-esophageal reflux disease without esophagitis; F41.9 Anxiety disorder, unspecified; F32.A Depression, unspecified; F17.290 Nicotine dependence, other tobacco product, uncomplicated; Z91.09 Other allergy status, other than to drugs and biological substances; Z79.51 Long term (current) use of inhaled steroids; Z79.84 Long term (current) use of oral hypoglycemic drugs; Z79.899 Other long term (current) drug therapy; Z53.9 Procedure and treatment not carried out, unspecified reason

== ENCOUNTER 2024-05-17 15:23 | Inpatient (IN) | payer MEDICAID, OTHER ==
[~2024-05-17] VITALS: Ht 153.2 cm; Wt 107.0 kg
[~2024-05-17 15:23] MED LIST changes: +GABA-1172; -GABA-282; +NYST1POW3 TOP; -NYST1POW9 TOP; -ROSU5TAB40; +ROSU5TAB49
[2024-05-17 15:50] LABS: HEMATOCRIT 30.4 % (36.0-47.0); HEMOGLOBIN 9.7 g/dl (12.0-15.5); MEAN CORPUSCULAR HEMOGLOBIN 25.5 pg (27.0-33.0); MEAN CORPUSCULAR HGB CONC 31.9 g/dl (32.0-36.5); PLATELET COUNT, AUTOMATED 316 10^3/uL (150-450); WHITE BLOOD COUNT 5.7 10^3/uL (4.0-10.0)
[2024-05-17 16:13] LABS: ETHYL ALCOHOL (ETHANOL) 0.004 % (0.000-0.010)
[2024-05-17 16:15] LABS: ALBUMIN 3.1 G/DL (3.2-5.2); ALKALINE PHOSPHATASE 85 U/L (35-104); ALT/SGPT 20 U/L (7.0-40); AST/SGOT 21 U/L (<34); BILIRUBIN,DIRECT < 0.1 MG/DL (<0.4); BILIRUBIN,TOTAL < 0.2 MG/DL (0.3-1.2); BLOOD UREA NITROGEN 7 MG/DL (9-23); CALCIUM LEVEL 9.1 MG/DL (8.5-10.1); CARBON DIOXIDE LEVEL 24 MMOL/L (20-31); CHLORIDE LEVEL 108 MMOL/L (98-107); CREATININE FOR GFR 0.47 MG/DL (0.55-1.30); GLOMERULAR FILTRATION RATE > 60.0 (>60); GLUCOSE, FASTING 163 MG/DL (60-100); POTASSIUM SERUM 4.1 MMOL/L (3.5-5.1); SALICYLATE LEVEL < 3.0 MG/DL (<30); SODIUM LEVEL 137 MMOL/L (136-145); TOTAL PROTEIN 7.3 G/DL (5.7-8.2)
[2024-05-17 16:17] LABS: THYROID STIMULATING HORMONE 2.055 uIU/ML (0.55-4.78)
[2024-05-17 16:30] LABS: HCG, SERUM QUALITATIVE NEGATIVE (NEGATIVE)
[2024-05-17 17:04] LABS: AMPHETAMINES LEVEL URINE NEGATIVE (NEGATIVE); BARBITURATES URINE NEGATIVE (NEGATIVE); BENZODIAZEPINES URINE NEGATIVE (NEGATIVE); CANNABINOIDS URINE NEGATIVE (NEGATIVE); COCAINE METABOLITE URINE NEGATIVE (NEGATIVE); METHADONE URINE NEGATIVE (NEGATIVE); OPIATES URINE NEGATIVE (NEGATIVE); PHENCYCLIDINE URINE NEGATIVE (NEGATIVE)
[2024-05-17] MEDS ORDERED: AMPH1CAP15 PO (17:11)
[2024-05-17] MEDS ORDERED: HOME MED LIST COMPLETE! XX SCH (17:15)
[2024-05-17] MEDS ORDERED: diphenhydrAMINE 25MG CAP PO PRN (18:10)
[2024-05-17] MEDS ORDERED: MAALOX 30 ML SUSP *UDC PO PRN (18:10)
[2024-05-17] MEDS ORDERED: IBUPROFEN 400MG TAB PO PRN (18:10)
[2024-05-17] MEDS ORDERED: ACETAMINOPHEN 325 MG TAB PO PRN (18:10)
[2024-05-17] MEDS ORDERED: MOM 30ML SUSPENSION UDC PO PRN (18:10)
[2024-05-18 06:02] VITALS: BP 127/88; TEMP 98.4; O2SAT 99
[2024-05-18] MEDS: AMPHETAMINE/DEXTROAMPHETAMINE 5 MG *ER* CAPSULE (ADDERALL XR) PO SCH (09:32)
[2024-05-18] MEDS ORDERED: GLUCAGON INJ 1MG VIAL SC PRN (12:15)
[2024-05-18] MEDS ORDERED: DEXTROSE 50% 50ML SYRINGE IV PRN (12:15)
[2024-05-18] MEDS ORDERED: GLUCOSE 4 GM CHEW PO PRN (12:15)
[2024-05-18 13:27] LABS: HEMOGLOBIN A1c 6.9 % (4.0-6.0)
[2024-05-18 13:53] LABS: CHOLESTEROL RISK RATIO 5.96 (<5); HDL CHOLESTEROL 31.7 MG/DL (>40); LDL CHOLESTEROL 109.3 MG/DL (<100); NON-HDL-C 157.3 MG/DL
[2024-05-18 14:37] VITALS: BP 141/65; TEMP 97.9; O2SAT 99
[2024-05-18] MEDS: INSULIN LISPRO (NovoLOG) PER UNIT SC SCH ×2 (17:19→20:27)
[2024-05-18] MEDS: traZODone 50 MG TAB PO PRN (20:26)
[2024-05-19 06:22] VITALS: BP 120/58; TEMP 97.4; O2SAT 97
[2024-05-19] MEDS ORDERED: LISI2.5T9 PO (07:25)
[2024-05-19] MEDS ORDERED: METF500T13 PO (07:25)
[2024-05-19] MEDS: metFORMIN (GLUCOPHAGE) 500MG TAB PO SCH (09:33)
[2024-05-19 09:34] VITALS: BP 120/58
[2024-05-19] MEDS: LISINOPRIL *2.5 MG* TAB PO SCH (09:34)
== END 2024-05-19 11:00 | disposition home or self-care (01) | DRG 754 ==
LOC: M ED 15:23 → M ED INP 18:08 → M PSY 21:33
PROVIDERS: ADMIT Psychiatry & Neurology Psychiatry; ATTEND Psychiatry & Neurology Psychiatry
DX: F32.A Depression, unspecified (principal); F43.10 Post-traumatic stress disorder, unspecified; F90.9 Attention-deficit hyperactivity disorder, unspecified type; Z62.810 Personal history of physical and sexual abuse in childhood; Z56.0 Unemployment, unspecified; Z79.899 Other long term (current) drug therapy

== ENCOUNTER → 2024-07-11 | Outpatient (REF) | payer MEDICAID ==
[~2024-07-11] MED LIST changes: +AMPH1CAP15 PO; +LISI2.5T9 PO; +METF500T13 PO
[2024-07-11 17:53] LABS: BLOOD UREA NITROGEN 8 MG/DL (9-23); CARBON DIOXIDE LEVEL 25 MMOL/L (20-31); CHLORIDE LEVEL 103 MMOL/L (98-107); CHOLESTEROL LEVEL 194 MG/DL (<200); CHOLESTEROL RISK RATIO 5.44 (<5); CREATININE FOR GFR 0.55 MG/DL (0.55-1.30); GLOMERULAR FILTRATION RATE > 60.0 (>60); GLUCOSE, FASTING 118 MG/DL (60-100); HDL CHOLESTEROL 35.6 MG/DL (>40); LDL CHOLESTEROL 109.4 MG/DL (<100); NON-HDL-C 158.4 MG/DL; POTASSIUM SERUM 4.4 MMOL/L (3.5-5.1); SODIUM LEVEL 136 MMOL/L (136-145); TRIGLYCERIDES LEVEL 245 MG/DL (<150)
[2024-07-11 18:07] LABS: HEMOGLOBIN A1c 7.2 % (4.0-6.0)
[2024-07-11 18:19] LABS: CREATININE, URINE 129.9 MG/DL
[2024-07-11 18:23] LABS: MAU/CREAT RATIO 36.1 MCG/MG (0.0-30.0)
== END ==
LOC: M LAB REF 16:18
PROVIDERS: ATTEND Nurse Practitioner Family
DX: E11.8 Type 2 diabetes mellitus with unspecified complications (principal); I10 Essential (primary) hypertension; Z11.9 Encounter for screening for infectious and parasitic diseases, unspecified; E66.3 Overweight

== ENCOUNTER → 2025-01-11 | Outpatient (REF) | payer OTHER ==
[~2025-01-11] MED LIST changes: +AMIT10TA11 PO; -AMIT10TA7 PO; +BUPR150T15; -BUPR1TAB53; +CARI-555; -CARI1TAB7
[2025-01-11 18:31] LABS: APPEARANCE, URINE CLOUDY (CLEAR); BACTERIA, URINE AUTO 1+ (NEGATIVE); BILIRUBIN, URINE AUTO NEGATIVE (NEGATIVE); BLOOD, URINE BLOOD 1+ (NEGATIVE); GLUCOSE, URINE (UA) AUTO NEGATIVE (NEGATIVE); KETONE, URINE AUTO NEGATIVE (NEGATIVE); LEUKOCYTE ESTERASE, URINE AUTO 3+ (NEGATIVE); MUCUS, URINE SMALL (NEGATIVE); NITRITE, URINE AUTO POSITIVE (NEGATIVE); PROTEIN, URINE AUTO 2+ mg/dL (NEGATIVE); RBC, URINE AUTO 14 /HPF (0-3); SPECIFIC GRAVITY URINE AUTO 1.009 (1.002-1.035); SQUAMOUS EPITHELIAL CELL UR AU 9 /HPF (0-6); UROBILINOGEN, URINE AUTO 0.2 mg/dL (0.0-2.0); WBC, URINE AUTO TNTC /HPF (0-3)
== END ==
LOC: M LAB REF 17:19
PROVIDERS: ATTEND Physician Assistant
DX: N39.0 Urinary tract infection, site not specified (principal)

== ENCOUNTER → 2025-06-08 | Outpatient (REF) | payer OTHER ==
[2025-06-08 17:57] LABS: APPEARANCE, URINE CLOUDY (CLEAR); BACTERIA, URINE AUTO 3+ (NEGATIVE); BILIRUBIN, URINE AUTO NEGATIVE (NEGATIVE); BLOOD, URINE BLOOD 1+ (NEGATIVE); GLUCOSE, URINE (UA) AUTO NEGATIVE (NEGATIVE); KETONE, URINE AUTO NEGATIVE (NEGATIVE); LEUKOCYTE ESTERASE, URINE AUTO 3+ (NEGATIVE); MUCUS, URINE SMALL (NEGATIVE); NITRITE, URINE AUTO NEGATIVE (NEGATIVE); PROTEIN, URINE AUTO 2+ mg/dL (NEGATIVE); RBC, URINE AUTO 3 /HPF (0-3); SPECIFIC GRAVITY URINE AUTO 1.011 (1.002-1.035); SQUAMOUS EPITHELIAL CELL UR AU 22 /HPF (0-6); UROBILINOGEN, URINE AUTO 0.2 mg/dL (0.0-2.0); WBC, URINE AUTO TNTC /HPF (0-3)
== END ==
LOC: M LAB REF 16:51
PROVIDERS: ATTEND Physician Assistant
DX: N39.0 Urinary tract infection, site not specified (principal)